=== PATIENT | male | born 1950 | race Caucasian/White ===

== ENCOUNTER 2022-04-18 14:09 | Inpatient (IN) ==
[2022-04-18 15:35] LABS: Basophils # 0.1 K/mcL (0.0-0.2); Basophils % 0.5 %; Eosinophils # 0.2 K/mcL (0.0-0.6); Eosinophils % 1.6 %; Hematocrit 40.9 % (37.5-50.1); Hemoglobin 14.1 g/dL (12.9-16.9); Immature Granulocytes % 0.2 % (0-4); Lymphocytes % 30.3 %; Mean Corpuscular HGB Conc 34.5 g/dL (31.6-35.5); Mean Corpuscular Hemoglobin 32.2 pg (28.0-33.3); Mean Corpuscular Volume 93.4 fL (83.0-100.0); Monocytes # 0.9 K/mcL (0.0-1.3); Monocytes % 8.9 %; Neutrophils # 5.7 K/mcL (1.6-8.9); Platelet Count 242 K/mcL (140-400); Red Blood Count 4.38 M/mcL (4.19-5.50); Red Cell Distribution Width 13.7 % (11.5-14.5); Segmented Neutrophils % 58.5 %; White Blood Count 9.7 K/mcL (4.3-11.1)
[2022-04-18 16:27] LABS: BUN/Creatinine Ratio 20 (6-26); Blood Urea Nitrogen 18 mg/dL (8-23); Calcium 9.7 mg/dL (8.6-10.3); Carbon Dioxide 24 mEq/L (23-29); Chloride 102 mEq/L (98-107); Glucose 176 mg/dL (70-105); Osmolality,Calculated 288 (280-300); Sodium 136 mEq/L (136-145); eGFR For African Americans > 60 (> 60); eGFR For Non-African Americans > 60 (> 60)
[2022-04-18] MEDS ORDERED: Naloxone 0.4 MG/ML INJ IVP PRN ×2 (17:45→17:59)
[2022-04-18] MEDS ORDERED: Perflutren Lipid Microsphere 1.3 ML in 0.9 % Sodium Chloride 8.7 ML IVP PRN (17:59)
[2022-04-18] MEDS ORDERED: Ondansetron 4 MG/2 ML VIAL IVP PRN (17:59)
[2022-04-18] MEDS ORDERED: Nitroglycerin 0.4 MG TAB.SUBL SL PRN (17:59)
[2022-04-18] MEDS ORDERED: D5% in Water 1,000 ML IVC PRN (18:33)
[2022-04-18] MEDS ORDERED: *HR* Dextrose 50 % in Water (Syg) 50 ML SYRINGE IVP PRN (18:33)
[2022-04-18] MEDS ORDERED: Dextrose Gel 15 GM/37.5 ML TUBE PO PRN ×2 (18:33)
[2022-04-18] MEDS ORDERED: *HR* Heparin 5,000 UNIT/ML VIAL IVP ONE (18:34)
[2022-04-18] MEDS ORDERED: *HR* Heparin 5,000 UNIT/ML VIAL IVP PRN ×2 (18:34)
[2022-04-18] MEDS ORDERED: Nitroglycerin 0.4 MG TAB.SUBL SL SCH (18:45)
[2022-04-18] MEDS ORDERED: Albuterol 2.5 MG/3 ML NEBULIZER IH PRN (19:43)
[2022-04-18] MEDS: Heparin 25,000UNIT/250ML 1/2NS 25,000 UNIT/250 ML IV.SOLN IVC SCH (19:52)
[2022-04-18] MEDS: Insulin LISPRO 300 UNITS/3 ML VIAL SUBQ SCH (19:55)
[2022-04-18] MEDS: Ipratropium/Albuterol Neb 3 ML IH SCH (20:18)
[2022-04-18 20:25] LABS: Mean Corpuscular HGB Conc 33.3 g/dL (31.6-35.5); Mean Corpuscular Hemoglobin 31.3 pg (28.0-33.3); Mean Corpuscular Volume 93.8 fL (83.0-100.0); Mean Platelet Volume 10.1 fL (9.4-12.4); Platelet Count 251 K/mcL (140-400); Red Blood Count 4.48 M/mcL (4.19-5.50); Red Cell Distribution Width 13.6 % (11.5-14.5); White Blood Count 10.1 K/mcL (4.3-11.1)
[2022-04-18 20:33] LABS: Heparin anti-factor XA UFH < 0.04 IU/mL (0.30-0.70)
[2022-04-18 20:34] LABS: Prothrombin Time 10.6 Seconds (9.4-12.1)
[2022-04-18 20:36] LABS: Estimated Average Glucose 212 mg/dl
[2022-04-18 21:16] LABS: Troponin I 0.17 ng/mL (< 0.04)
[2022-04-18] MEDS: Gabapentin 100 MG CAPSULE PO SCH (22:17)
[2022-04-18] MEDS: Furosemide 40 MG TABLET PO SCH (22:18)
[2022-04-19 01:49] LABS: Basophils # 0.1 K/mcL (0.0-0.2); Basophils % 0.5 %; Eosinophils # 0.3 K/mcL (0.0-0.6); Eosinophils % 2.6 %; Hematocrit 39.6 % (37.5-50.1); Hemoglobin 13.2 g/dL (12.9-16.9); Immature Granulocytes % 0.4 % (0-4); Lymphocytes # 3.5 K/mcL (0.6-4.6); Lymphocytes % 36.2 %; Mean Corpuscular HGB Conc 33.3 g/dL (31.6-35.5); Mean Corpuscular Hemoglobin 31.7 pg (28.0-33.3); Mean Corpuscular Volume 95.2 fL (83.0-100.0); Mean Platelet Volume 10.1 fL (9.4-12.4); Monocytes # 0.9 K/mcL (0.0-1.3); Neutrophils # 4.9 K/mcL (1.6-8.9); Platelet Count 218 K/mcL (140-400); Red Blood Count 4.16 M/mcL (4.19-5.50); Red Cell Distribution Width 13.5 % (11.5-14.5); Segmented Neutrophils % 51.3 %; White Blood Count 9.5 K/mcL (4.3-11.1)
[2022-04-19 01:56] LABS: Heparin anti-factor XA UFH 0.35 IU/mL (0.30-0.70)
[2022-04-19 01:59] LABS: Activated Partial Thrombo Time 56.9 Seconds (26.0-36.0)
[2022-04-19 02:09] LABS: Alanine Aminotransferase 27 Units/L (7-52); Albumin 3.8 g/dL (3.5-5.7); Albumin/Globulin Ratio 1.7 (1.1-2.2); Alkaline Phosphatase 49 Units/L (34-104); Aspartate Amino Transferase 20 Units/L (13-39); BUN/Creatinine Ratio 19 (6-26); Bilirubin,Total 0.6 mg/dL (0.3-1.0); Blood Urea Nitrogen 16 mg/dL (8-23); Calcium 9.2 mg/dL (8.6-10.3); Carbon Dioxide 28 mEq/L (23-29); Chloride 103 mEq/L (98-107); Chol/HDL Ratio 5.2 (0-4.9); Cholesterol 181 mg/dL (< 200); Globulin 2.3 g/dL (2.4-3.5); Glucose 153 mg/dL (70-105); HDL Cholesterol 35 mg/dL (40-59); LDL Cholesterol,Calculated 113 mg/dL (< 100); Magnesium 1.8 mg/dL (1.6-2.6); Osmolality,Calculated 290 (280-300); Potassium 3.5 mEq/L (3.5-5.1); Sodium 138 mEq/L (136-145); Total Protein 6.1 g/dL (6.4-8.9); Triglycerides 167 mg/dL (< 150); Troponin I 0.17 ng/mL (< 0.04); eGFR For African Americans > 60 (> 60); eGFR For Non-African Americans > 60 (> 60)
[2022-04-19] MEDS: Ipratropium/Albuterol Neb 3 ML IH SCH ×2 (03:44→08:03)
[2022-04-19] MEDS: Insulin LISPRO 300 UNITS/3 ML VIAL SUBQ SCH ×3 (07:33→17:10)
[2022-04-19] MEDS: Gabapentin 100 MG CAPSULE PO SCH ×3 (07:40→21:10)
[2022-04-19] MEDS: Aspirin Enteric Coated 81 MG Tablet PO SCH (07:40)
[2022-04-19] MEDS: Valsartan 160 MG TABLET PO SCH (07:40)
[2022-04-19] MEDS: carvediloL 6.25 MG TABLET PO SCH ×2 (07:40→17:09)
[2022-04-19] MEDS: Furosemide 40 MG TABLET PO SCH ×2 (07:40→17:09)
[2022-04-19] MEDS ORDERED: Ipratropium/Albuterol Neb 3 ML IH PRN (10:51)
[2022-04-19] MEDS: Heparin 25,000UNIT/250ML 1/2NS 25,000 UNIT/250 ML IV.SOLN IVC SCH (12:28)
[2022-04-19] MEDS ORDERED: Bisacodyl 10 MG RECTAL SUPPOSITORY RC PRN (13:28)
[2022-04-19] MEDS ORDERED: Morphine Sulfate Oral CONC 10 MG/0.5 ML ORAL.SYG PO PRN (13:28)
[2022-04-19] MEDS: Gabapentin 400 MG CAPSULE PO SCH ×2 (14:34→21:10)
[2022-04-20] MEDS: Heparin 25,000UNIT/250ML 1/2NS 25,000 UNIT/250 ML IV.SOLN IVC SCH (03:35)
[2022-04-20 04:37] LABS: Basophils # 0.1 K/mcL (0.0-0.2); Basophils % 0.6 %; Eosinophils # 0.2 K/mcL (0.0-0.6); Eosinophils % 2.4 %; Hematocrit 38.6 % (37.5-50.1); Hemoglobin 13.2 g/dL (12.9-16.9); Immature Granulocytes % 0.4 % (0-4); Lymphocytes # 3.1 K/mcL (0.6-4.6); Lymphocytes % 37.6 %; Mean Corpuscular HGB Conc 34.2 g/dL (31.6-35.5); Mean Corpuscular Hemoglobin 31.9 pg (28.0-33.3); Mean Corpuscular Volume 93.2 fL (83.0-100.0); Mean Platelet Volume 10.2 fL (9.4-12.4); Monocytes # 0.9 K/mcL (0.0-1.3); Monocytes % 10.5 %; Platelet Count 224 K/mcL (140-400); Red Blood Count 4.14 M/mcL (4.19-5.50); Red Cell Distribution Width 13.5 % (11.5-14.5); Segmented Neutrophils % 48.5 %; White Blood Count 8.3 K/mcL (4.3-11.1)
[2022-04-20 04:49] LABS: BUN/Creatinine Ratio 23 (6-26); Blood Urea Nitrogen 20 mg/dL (8-23); Calcium 9.3 mg/dL (8.6-10.3); Carbon Dioxide 26 mEq/L (23-29); Chloride 101 mEq/L (98-107); Glucose 211 mg/dL (70-105); Magnesium 1.8 mg/dL (1.6-2.6); Osmolality,Calculated 291 (280-300); Phosphorous 3.7 mg/dL (2.7-4.5); Potassium 3.8 mEq/L (3.5-5.1); Sodium 136 mEq/L (136-145); eGFR For African Americans > 60 (> 60); eGFR For Non-African Americans > 60 (> 60)
[2022-04-20] MEDS: Valsartan 160 MG TABLET PO SCH (10:22)
[2022-04-20] MEDS: Gabapentin 400 MG CAPSULE PO SCH ×3 (10:22→19:52)
[2022-04-20] MEDS: Gabapentin 100 MG CAPSULE PO SCH ×3 (10:22→19:52)
[2022-04-20] MEDS: Aspirin Enteric Coated 81 MG Tablet PO SCH (10:23)
[2022-04-20] MEDS: Insulin LISPRO 300 UNITS/3 ML VIAL SUBQ SCH ×3 (10:24→16:59)
[2022-04-20] MEDS: Isosorbide MONOnitrate (24 HR) 30 MG TAB.ER.24H PO SCH (10:24)
[2022-04-20] MEDS: Furosemide 40 MG TABLET PO SCH ×2 (10:28→17:02)
[2022-04-20] MEDS: carvediloL 6.25 MG TABLET PO SCH ×2 (10:28→17:02)
[2022-04-20] MEDS: Insulin DETEMIR 100 UNIT/ML X5UNITS SUBQ SCH (20:37)
[2022-04-21 04:04] LABS: BUN/Creatinine Ratio 21 (6-26); Blood Urea Nitrogen 25 mg/dL (8-23); Calcium 9.1 mg/dL (8.6-10.3); Carbon Dioxide 25 mEq/L (23-29); Chloride 101 mEq/L (98-107); Glucose 233 mg/dL (70-105); Magnesium 1.9 mg/dL (1.6-2.6); Osmolality,Calculated 290 (280-300); Phosphorous 4.3 mg/dL (2.7-4.5); Sodium 134 mEq/L (136-145); eGFR For African Americans > 60 (> 60); eGFR For Non-African Americans 59 (> 60)
[2022-04-21] MEDS: Furosemide 40 MG TABLET PO SCH ×2 (09:08→17:59)
[2022-04-21] MEDS: Gabapentin 400 MG CAPSULE PO SCH ×3 (09:08→21:19)
[2022-04-21] MEDS: Isosorbide MONOnitrate (24 HR) 30 MG TAB.ER.24H PO SCH (09:08)
[2022-04-21] MEDS: Valsartan 160 MG TABLET PO SCH (09:08)
[2022-04-21] MEDS: Gabapentin 100 MG CAPSULE PO SCH ×3 (09:08→21:19)
[2022-04-21] MEDS: Aspirin Enteric Coated 81 MG Tablet PO SCH (09:09)
[2022-04-21] MEDS: carvediloL 6.25 MG TABLET PO SCH ×2 (09:09→17:59)
[2022-04-21] MEDS: Insulin DETEMIR 100 UNIT/ML X5UNITS SUBQ SCH ×2 (09:15→21:20)
[2022-04-21] MEDS: Insulin LISPRO 300 UNITS/3 ML VIAL SUBQ SCH ×3 (09:17→18:02)
[2022-04-21] MEDS: Heparin 25,000UNIT/250ML 1/2NS 25,000 UNIT/250 ML IV.SOLN IVC SCH (12:13)
[2022-04-21] MEDS: haloperidoL 1 MG TABLET PO PRN (22:24)
[2022-04-21] MEDS: *HR* LORazepam 0.5 MG TABLET PO PRN (22:24)
[2022-04-22] MEDS: Heparin 25,000UNIT/250ML 1/2NS 25,000 UNIT/250 ML IV.SOLN IVC SCH ×2 (01:51→20:56)
[2022-04-22 05:30] LABS: Basophils # 0.1 K/mcL (0.0-0.2); Basophils % 0.6 %; Eosinophils # 0.2 K/mcL (0.0-0.6); Eosinophils % 2.2 %; Hematocrit 37.3 % (37.5-50.1); Hemoglobin 12.5 g/dL (12.9-16.9); Immature Granulocytes % 0.6 % (0-4); Lymphocytes # 2.7 K/mcL (0.6-4.6); Lymphocytes % 29.8 %; Mean Corpuscular HGB Conc 33.5 g/dL (31.6-35.5); Mean Corpuscular Hemoglobin 31.3 pg (28.0-33.3); Mean Corpuscular Volume 93.3 fL (83.0-100.0); Mean Platelet Volume 10.3 fL (9.4-12.4); Monocytes # 0.9 K/mcL (0.0-1.3); Monocytes % 10.6 %; Platelet Count 213 K/mcL (140-400); Red Cell Distribution Width 13.6 % (11.5-14.5); Segmented Neutrophils % 56.2 %; White Blood Count 8.9 K/mcL (4.3-11.1)
[2022-04-22 05:51] LABS: BUN/Creatinine Ratio 22 (6-26); Blood Urea Nitrogen 23 mg/dL (8-23); Calcium 9.3 mg/dL (8.6-10.3); Carbon Dioxide 25 mEq/L (23-29); Chloride 103 mEq/L (98-107); Glucose 246 mg/dL (70-105); Osmolality,Calculated 294 (280-300); Phosphorous 3.8 mg/dL (2.7-4.5); Potassium 3.9 mEq/L (3.5-5.1); Sodium 136 mEq/L (136-145); eGFR For African Americans > 60 (> 60); eGFR For Non-African Americans > 60 (> 60)
[2022-04-22] MEDS: Insulin LISPRO 300 UNITS/3 ML VIAL SUBQ SCH ×3 (07:30→16:39)
[2022-04-22] MEDS: carvediloL 6.25 MG TABLET PO SCH ×2 (08:08→16:40)
[2022-04-22] MEDS: Isosorbide MONOnitrate (24 HR) 30 MG TAB.ER.24H PO SCH (08:08)
[2022-04-22] MEDS: Valsartan 160 MG TABLET PO SCH (08:08)
[2022-04-22] MEDS: Aspirin Enteric Coated 81 MG Tablet PO SCH (08:08)
[2022-04-22] MEDS: Insulin DETEMIR 100 UNIT/ML X5UNITS SUBQ SCH ×2 (08:08→21:01)
[2022-04-22] MEDS: Furosemide 40 MG TABLET PO SCH ×2 (08:08→16:40)
[2022-04-22] MEDS: Gabapentin 400 MG CAPSULE PO SCH ×3 (09:00→21:01)
[2022-04-22] MEDS: Gabapentin 100 MG CAPSULE PO SCH ×3 (09:37→21:01)
[2022-04-22] MEDS ORDERED: Mannitol 25% vial 12.5 GM/50 ML VIAL IVPB ONE (12:37)
[2022-04-22] MEDS ORDERED: *HR* Heparin 10,000 UNIT/10 ML VIAL IR ONE (12:37)
[2022-04-22] MEDS ORDERED: *HR* Magnesium Sulfate 2 GM/50 ML PIGGYBACK IVPB ONE (12:37)
[2022-04-22] MEDS ORDERED: Heparin 1,000 UNITS/500 mL IV.SOLN IR ONE (12:37)
[2022-04-22] MEDS ORDERED: *HR* Phenylephrine 10 MG/ML VIAL IVC ONE (12:37)
[2022-04-22] MEDS ORDERED: Lidocaine 2% Syringe 100 MG/5 ML IVP ONE (12:37)
[2022-04-22] MEDS ORDERED: Tranexamic Acid 1,000 MG/10 ML VIAL IR ONE (12:37)
[2022-04-22] MEDS ORDERED: *HR* Midazolam HCl 2 MG/2 ML VIAL ONE (16:46)
[2022-04-22] MEDS ORDERED: *HR* FentaNYL (PF) 100 MCG/2 ML VIAL ONE ×2 (16:46→18:38)
[2022-04-22] MEDS ORDERED: Heparin 1,000 UNITS/500 mL 500 ML ONE ×2 (16:47→16:55)
[2022-04-22] MEDS ORDERED: *HR* Heparin 10,000 UNIT/10 ML VIAL ONE (16:47)
[2022-04-22] MEDS ORDERED: Iopamidol - 370 200 ML INFUS..BTL ONE (16:47)
[2022-04-22] MEDS ORDERED: Nitroglycerin 1,000 MCG/5 ML VIAL IV ONE (16:48)
[2022-04-22] MEDS ORDERED: 0.9 % Sodium Chloride 2,000 ML ONE (16:48)
[2022-04-22] MEDS: haloperidoL 1 MG TABLET PO PRN (21:01)
[2022-04-22] MEDS: *HR* LORazepam 0.5 MG TABLET PO PRN (21:01)
[2022-04-23 05:00] LABS: Basophils % 0.4 %; Eosinophils # 0.2 K/mcL (0.0-0.6); Eosinophils % 2.1 %; Hematocrit 39.2 % (37.5-50.1); Hemoglobin 13.1 g/dL (12.9-16.9); Immature Granulocytes % 0.5 % (0-4); Lymphocytes # 2.9 K/mcL (0.6-4.6); Lymphocytes % 30.6 %; Mean Corpuscular HGB Conc 33.4 g/dL (31.6-35.5); Mean Corpuscular Hemoglobin 31.8 pg (28.0-33.3); Mean Corpuscular Volume 95.1 fL (83.0-100.0); Mean Platelet Volume 10.3 fL (9.4-12.4); Monocytes # 0.9 K/mcL (0.0-1.3); Monocytes % 9.4 %; Neutrophils # 5.5 K/mcL (1.6-8.9); Platelet Count 190 K/mcL (140-400); Red Blood Count 4.12 M/mcL (4.19-5.50); Red Cell Distribution Width 13.9 % (11.5-14.5); White Blood Count 9.6 K/mcL (4.3-11.1)
[2022-04-23 05:20] LABS: BUN/Creatinine Ratio 17 (6-26); Blood Urea Nitrogen 16 mg/dL (8-23); Calcium 9.2 mg/dL (8.6-10.3); Carbon Dioxide 26 mEq/L (23-29); Chloride 103 mEq/L (98-107); Glucose 230 mg/dL (70-105); Osmolality,Calculated 290 (280-300); Potassium 3.9 mEq/L (3.5-5.1); Sodium 136 mEq/L (136-145); eGFR For African Americans > 60 (> 60); eGFR For Non-African Americans > 60 (> 60)
[2022-04-23] MEDS ORDERED: Iopamidol - 370 500 ML MLS IVP ONE (08:00)
[2022-04-23] MEDS: Insulin LISPRO 300 UNITS/3 ML VIAL SUBQ SCH ×4 (11:05→16:54)
[2022-04-23] MEDS: Aspirin Enteric Coated 81 MG Tablet PO SCH (11:13)
[2022-04-23] MEDS: Gabapentin 400 MG CAPSULE PO SCH ×3 (11:13→20:33)
[2022-04-23] MEDS: Gabapentin 100 MG CAPSULE PO SCH ×3 (11:14→20:33)
[2022-04-23] MEDS: Insulin DETEMIR 100 UNIT/ML X5UNITS SUBQ SCH ×2 (11:22→20:37)
[2022-04-23] MEDS: Heparin 25,000UNIT/250ML 1/2NS 25,000 UNIT/250 ML IV.SOLN IVC SCH ×3 (11:52→13:37)
[2022-04-23] MEDS: Furosemide 40 MG TABLET PO SCH ×2 (11:53→16:55)
[2022-04-23] MEDS: carvediloL 6.25 MG TABLET PO SCH ×2 (11:53→16:55)
[2022-04-23] MEDS: Isosorbide MONOnitrate (24 HR) 30 MG TAB.ER.24H PO SCH (11:54)
[2022-04-23] MEDS: Valsartan 160 MG TABLET PO SCH (11:54)
[2022-04-23] MEDS: *HR* LORazepam 0.5 MG TABLET PO PRN (20:33)
[2022-04-23] MEDS: haloperidoL 1 MG TABLET PO PRN (20:34)
[2022-04-24] MEDS: Heparin 25,000UNIT/250ML 1/2NS 25,000 UNIT/250 ML IV.SOLN IVC SCH ×2 (03:41→16:07)
[2022-04-24] MEDS: Gabapentin 100 MG CAPSULE PO SCH ×3 (08:27→20:53)
[2022-04-24] MEDS: Isosorbide MONOnitrate (24 HR) 30 MG TAB.ER.24H PO SCH (08:27)
[2022-04-24] MEDS: Valsartan 160 MG TABLET PO SCH (08:27)
[2022-04-24] MEDS: carvediloL 6.25 MG TABLET PO SCH ×2 (08:27→17:01)
[2022-04-24] MEDS: Aspirin Enteric Coated 81 MG Tablet PO SCH (08:28)
[2022-04-24] MEDS: Gabapentin 400 MG CAPSULE PO SCH ×3 (08:28→20:52)
[2022-04-24] MEDS: Furosemide 40 MG TABLET PO SCH ×2 (08:28→17:01)
[2022-04-24] MEDS: Insulin LISPRO 300 UNITS/3 ML VIAL SUBQ SCH ×6 (08:30→17:06)
[2022-04-24] MEDS: Insulin DETEMIR 100 UNIT/ML X5UNITS SUBQ SCH ×2 (08:30→21:48)
[2022-04-24 16:18] LABS: Basophils # 0.1 K/mcL (0.0-0.2); Basophils % 0.6 %; Eosinophils # 0.2 K/mcL (0.0-0.6); Eosinophils % 1.7 %; Hematocrit 37.3 % (37.5-50.1); Hemoglobin 12.6 g/dL (12.9-16.9); Immature Granulocytes % 0.6 % (0-4); Lymphocytes # 3.1 K/mcL (0.6-4.6); Lymphocytes % 30.7 %; Mean Corpuscular HGB Conc 33.8 g/dL (31.6-35.5); Mean Corpuscular Hemoglobin 31.6 pg (28.0-33.3); Mean Corpuscular Volume 93.5 fL (83.0-100.0); Mean Platelet Volume 10.4 fL (9.4-12.4); Monocytes # 1.2 K/mcL (0.0-1.3); Monocytes % 11.2 %; Neutrophils # 5.7 K/mcL (1.6-8.9); Platelet Count 215 K/mcL (140-400); Red Blood Count 3.99 M/mcL (4.19-5.50); Segmented Neutrophils % 55.2 %; White Blood Count 10.2 K/mcL (4.3-11.1)
[2022-04-24 16:27] LABS: INR 1.1
[2022-04-24 16:30] LABS: Activated Partial Thrombo Time 85.3 Seconds (26.0-36.0)
[2022-04-24 16:38] LABS: BUN/Creatinine Ratio 14 (6-26); Blood Urea Nitrogen 14 mg/dL (8-23); Calcium 9.4 mg/dL (8.6-10.3); Carbon Dioxide 26 mEq/L (23-29); Chloride 104 mEq/L (98-107); Chol/HDL Ratio 3.8 (0-4.9); Cholesterol 123 mg/dL (< 200); Glucose 193 mg/dL (70-105); HDL Cholesterol 32 mg/dL (40-59); LDL Cholesterol,Calculated 59 mg/dL (< 100); Osmolality,Calculated 290 (280-300); Sodium 137 mEq/L (136-145); Triglycerides 158 mg/dL (< 150); eGFR For African Americans > 60 (> 60); eGFR For Non-African Americans > 60 (> 60)
[2022-04-24] MEDS: Chlorhexidine Rinse 15 ML MOUTHWASH MM SCH (20:52)
[2022-04-25] MEDS: Heparin 25,000UNIT/250ML 1/2NS 25,000 UNIT/250 ML IV.SOLN IVC SCH ×2 (05:20→22:15)
[2022-04-25] MEDS: Chlorhexidine Rinse 15 ML MOUTHWASH MM SCH ×2 (05:20→22:08)
[2022-04-25] MEDS ORDERED: Papaverine 60 MG/2 ML VIAL IVP ONE (05:42)
[2022-04-25] MEDS ORDERED: Clindamycin 900 MG/50 ML 900 MG/50 ML IV.SOLN IVPB ONE (06:00)
[2022-04-25] MEDS ORDERED: Aspirin 81 MG TAB.CHEW PO ONE (06:00)
[2022-04-25] MEDS ORDERED: NiCARdipine 2.5 MG/10 ML Syringe IVPB ONE (06:01)
[2022-04-25] MEDS ORDERED: DOBUTamine 1,000 MG/250 ML BAG ONE (06:01)
[2022-04-25] MEDS ORDERED: *HR* Midazolam HCl 5 MG/5 ML VIAL IVP ONE (06:10)
[2022-04-25] MEDS ORDERED: *HR* FentaNYL (PF) 1,000 MCG/20 ML VIAL ONE (06:11)
[2022-04-25] MEDS ORDERED: niCARdipine 20 MG/200 ML MLS IVC ONE (06:17)
[2022-04-25] MEDS ORDERED: *HR* Norepinephrine 4 MG/4 ML VIAL IVC ONE (06:17)
[2022-04-25] MEDS ORDERED: *HR* Rocuronium Bromide 50 MG/5 ML VIAL ONE (06:17)
[2022-04-25] MEDS ORDERED: *HR* Etomidate 20 MG/10 ML AMPUL IVP ONE (06:25)
[2022-04-25] MEDS ORDERED: Tranexamic Acid 1,000 MG/10 ML VIAL ONE (06:25)
[2022-04-25] MEDS ORDERED: Calcium Gluconate 1,000 MG/10 ML VIAL ONE (06:26)
[2022-04-25] MEDS ORDERED: Protamine Sulfate 250 MG/25 ML VIAL IVP ONE (06:26)
[2022-04-25] MEDS ORDERED: Norepinephrine 4 MG in 0.9 % Sodium Chloride 250 ML IVC PRN (07:00)
[2022-04-25] MEDS ORDERED: del Nido Cardioplegia Solution PF ONE ×2 (07:00)
[2022-04-25] MEDS ORDERED: Buckersberg's Blood Cardioplegia PF ONE (07:00)
[2022-04-25] MEDS ORDERED: Heparin 15,000 UNIT in 0.9 % Sodium Chloride 500 ML IV ONE (07:00)
[2022-04-25] MEDS: Insulin LISPRO 300 UNITS/3 ML VIAL SUBQ SCH ×6 (09:03→16:56)
[2022-04-25] MEDS: Insulin DETEMIR 100 UNIT/ML X5UNITS SUBQ SCH ×2 (09:05→22:12)
[2022-04-25] MEDS: Valsartan 160 MG TABLET PO SCH (09:06)
[2022-04-25] MEDS: Gabapentin 100 MG CAPSULE PO SCH ×3 (09:07→22:09)
[2022-04-25] MEDS: Aspirin Enteric Coated 81 MG Tablet PO SCH (09:07)
[2022-04-25] MEDS: Furosemide 40 MG TABLET PO SCH ×2 (09:07→16:54)
[2022-04-25] MEDS: Isosorbide MONOnitrate (24 HR) 30 MG TAB.ER.24H PO SCH (09:07)
[2022-04-25] MEDS: Gabapentin 400 MG CAPSULE PO SCH ×3 (09:07→22:09)
[2022-04-25 16:35] LABS: Basophils % 0.4 %; Eosinophils # 0.3 K/mcL (0.0-0.6); Eosinophils % 2.8 %; Hematocrit 38.8 % (37.5-50.1); Hemoglobin 13.2 g/dL (12.9-16.9); Immature Granulocytes % 0.7 % (0-4); Lymphocytes # 2.9 K/mcL (0.6-4.6); Lymphocytes % 28.4 %; Mean Corpuscular Volume 93.9 fL (83.0-100.0); Mean Platelet Volume 10.4 fL (9.4-12.4); Monocytes # 0.9 K/mcL (0.0-1.3); Monocytes % 9.3 %; Neutrophils # 5.9 K/mcL (1.6-8.9); Nucleated Red Blood Cells 0.2 /100 WBC (0); Platelet Count 218 K/mcL (140-400); Red Blood Count 4.13 M/mcL (4.19-5.50); Red Cell Distribution Width 14.1 % (11.5-14.5); Segmented Neutrophils % 58.4 %; White Blood Count 10.1 K/mcL (4.3-11.1)
[2022-04-25 16:44] LABS: INR 1.1; Prothrombin Time 11.8 Seconds (9.4-12.1)
[2022-04-25 16:52] LABS: Activated Partial Thrombo Time 75.5 Seconds (26.0-36.0)
[2022-04-25 16:53] LABS: BUN/Creatinine Ratio 17 (6-26); Blood Urea Nitrogen 16 mg/dL (8-23); Calcium 9.7 mg/dL (8.6-10.3); Carbon Dioxide 26 mEq/L (23-29); Chloride 103 mEq/L (98-107); Glucose 162 mg/dL (70-105); Osmolality,Calculated 289 (280-300); Sodium 137 mEq/L (136-145); eGFR For African Americans > 60 (> 60); eGFR For Non-African Americans > 60 (> 60)
[2022-04-25] MEDS: carvediloL 6.25 MG TABLET PO SCH (17:20)
[2022-04-25] MEDS: haloperidoL 1 MG TABLET PO PRN (22:08)
[2022-04-26] MEDS ORDERED: NiCARdipine 2.5 MG/10 ML Syringe IVPB ONE ×2 (05:46→13:49)
[2022-04-26] MEDS ORDERED: DOBUTamine 1,000 MG/250 ML BAG ONE (05:46)
[2022-04-26] MEDS: Chlorhexidine Rinse 15 ML MOUTHWASH MM SCH ×2 (05:47→20:03)
[2022-04-26] MEDS ORDERED: *HR* Midazolam HCl 5 MG/5 ML VIAL IVP ONE ×2 (05:52→14:23)
[2022-04-26] MEDS ORDERED: *HR* FentaNYL (PF) 1,000 MCG/20 ML VIAL ONE (05:53)
[2022-04-26] MEDS ORDERED: *HR* Rocuronium Bromide 50 MG/5 ML VIAL ONE ×3 (05:55→12:44)
[2022-04-26] MEDS ORDERED: *HR* Norepinephrine 4 MG/4 ML VIAL IVC ONE (05:55)
[2022-04-26] MEDS ORDERED: niCARdipine 20 MG/200 ML MLS IVC ONE ×2 (05:55→13:48)
[2022-04-26] MEDS ORDERED: *HR* Etomidate 20 MG/10 ML AMPUL IVP ONE (05:56)
[2022-04-26] MEDS ORDERED: Tranexamic Acid 1,000 MG/10 ML VIAL ONE (05:56)
[2022-04-26] MEDS ORDERED: Calcium Gluconate 1,000 MG/10 ML VIAL ONE (05:56)
[2022-04-26] MEDS ORDERED: Protamine Sulfate 250 MG/25 ML VIAL IVP ONE (05:59)
[2022-04-26] MEDS ORDERED: Clindamycin 900 MG/50 ML 900 MG/50 ML IV.SOLN IVPB ONE (06:00)
[2022-04-26] MEDS ORDERED: Aspirin 81 MG TAB.CHEW PO ONE ×2 (06:00→17:00)
[2022-04-26] MEDS ORDERED: Papaverine 60 MG/2 ML VIAL IVP ONE (06:00)
[2022-04-26] MEDS ORDERED: Norepinephrine 4 MG in 0.9 % Sodium Chloride 250 ML IVC PRN (07:00)
[2022-04-26] MEDS ORDERED: del Nido Cardioplegia Solution PF ONE ×2 (07:00)
[2022-04-26] MEDS ORDERED: Heparin 15,000 UNIT in 0.9 % Sodium Chloride 500 ML IV ONE (07:00)
[2022-04-26] MEDS ORDERED: Buckersberg's Blood Cardioplegia PF ONE (07:00)
[2022-04-26 08:15] LABS: ABG Base Excess -2 mEq/L (-2 to 3); ABG Chloride 103 mEq/L (98-107); ABG Glucose 259 mg/dL (60-95); ABG HCO3 25 mEq/L (21-27); ABG Ionized Calcium 1.21 mmol/L (1.15-1.35); ABG Oxygen Saturation 100 % (95-98); ABG PCO2 47 mmHg (35-45); ABG PH 7.33 pH Units (7.32-7.45); ABG PO2 229 mmHg (85-104); ABG TCO2 26 mEq/L (20-26)
[2022-04-26] MEDS ORDERED: Calcium Gluconate 1gm/50mL 1 GM/50 ML BAG IVPB PRN (09:39)
[2022-04-26] MEDS ORDERED: Potassium Chloride 40 MEQ/200 ML BAG IVPB PRN (09:39)
[2022-04-26] MEDS ORDERED: *HR* Dextrose 50 % in Water (Syg) 50 ML SYRINGE IVP PRN (09:39)
[2022-04-26] MEDS ORDERED: Acetaminophen 325 MG TABLET PO PRN (09:39)
[2022-04-26 10:52] LABS: ABG Base Excess -3 mEq/L (-2 to 3); ABG Chloride 102 mEq/L (98-107); ABG Glucose 310 mg/dL (60-95); ABG HCO3 23 mEq/L (21-27); ABG Ionized Calcium 1.25 mmol/L (1.15-1.35); ABG Oxygen Saturation 99 % (95-98); ABG PCO2 46 mmHg (35-45); ABG PH 7.31 pH Units (7.32-7.45); ABG PO2 154 mmHg (85-104); ABG TCO2 25 mEq/L (20-26)
[2022-04-26 11:56] LABS: ABG Base Excess -2 mEq/L (-2 to 3); ABG Chloride 100 mEq/L (98-107); ABG Glucose 225 mg/dL (60-95); ABG HCO3 24 mEq/L (21-27); ABG Ionized Calcium 1.03 mmol/L (1.15-1.35); ABG Oxygen Saturation 100 % (95-98); ABG PCO2 43 mmHg (35-45); ABG PH 7.36 pH Units (7.32-7.45); ABG PO2 524 mmHg (85-104); ABG TCO2 25 mEq/L (20-26)
[2022-04-26 12:24] LABS: ABG Base Excess -1 mEq/L (-2 to 3); ABG Chloride 101 mEq/L (98-107); ABG Glucose 238 mg/dL (60-95); ABG HCO3 25 mEq/L (21-27); ABG Ionized Calcium 1.11 mmol/L (1.15-1.35); ABG Oxygen Saturation 100 % (95-98); ABG PCO2 42 mmHg (35-45); ABG PH 7.38 pH Units (7.32-7.45); ABG PO2 532 mmHg (85-104); ABG TCO2 26 mEq/L (20-26)
[2022-04-26] MEDS: Insulin LISPRO 300 UNITS/3 ML VIAL SUBQ SCH ×6 (12:53→16:48)
[2022-04-26] MEDS: carvediloL 6.25 MG TABLET PO SCH ×2 (12:53→16:40)
[2022-04-26] MEDS: Aspirin Enteric Coated 81 MG Tablet PO SCH (12:54)
[2022-04-26] MEDS: Gabapentin 100 MG CAPSULE PO SCH ×3 (12:54→19:11)
[2022-04-26] MEDS: Gabapentin 400 MG CAPSULE PO SCH ×3 (12:54→19:11)
[2022-04-26] MEDS: Valsartan 160 MG TABLET PO SCH (12:54)
[2022-04-26] MEDS: Isosorbide MONOnitrate (24 HR) 30 MG TAB.ER.24H PO SCH (12:54)
[2022-04-26] MEDS: Furosemide 40 MG TABLET PO SCH ×2 (12:54→16:40)
[2022-04-26] MEDS: Insulin DETEMIR 100 UNIT/ML X5UNITS SUBQ SCH ×2 (12:54→19:11)
[2022-04-26 12:55] LABS: ABG Base Excess 0 mEq/L (-2 to 3); ABG Chloride 101 mEq/L (98-107); ABG Glucose 252 mg/dL (60-95); ABG HCO3 25 mEq/L (21-27); ABG Ionized Calcium 1.14 mmol/L (1.15-1.35); ABG Oxygen Saturation 100 % (95-98); ABG PCO2 42 mmHg (35-45); ABG PH 7.38 pH Units (7.32-7.45); ABG PO2 531 mmHg (85-104); ABG TCO2 26 mEq/L (20-26)
[2022-04-26 13:26] LABS: ABG Base Excess -1 mEq/L (-2 to 3); ABG Chloride 102 mEq/L (98-107); ABG Glucose 272 mg/dL (60-95); ABG HCO3 24 mEq/L (21-27); ABG Ionized Calcium 1.72 mmol/L (1.15-1.35); ABG Oxygen Saturation 100 % (95-98); ABG PCO2 41 mmHg (35-45); ABG PH 7.38 pH Units (7.32-7.45); ABG PO2 450 mmHg (85-104); ABG TCO2 26 mEq/L (20-26)
[2022-04-26] MEDS ORDERED: *HR* Phenylephrine 10 MG/ML VIAL IVC ONE (13:53)
[2022-04-26] MEDS ORDERED: Lidocaine 2% Syringe 100 MG/5 ML IVP ONE (13:53)
[2022-04-26] MEDS ORDERED: *HR* Heparin 10,000 UNIT/10 ML VIAL IR ONE (13:53)
[2022-04-26] MEDS ORDERED: Mannitol 25% vial 12.5 GM/50 ML VIAL IVPB ONE (13:53)
[2022-04-26] MEDS ORDERED: *HR* Magnesium Sulfate 2 GM/50 ML PIGGYBACK IVPB ONE (13:53)
[2022-04-26] MEDS ORDERED: Heparin 1,000 UNITS/500 mL IV.SOLN IR ONE (13:53)
[2022-04-26] MEDS ORDERED: Albumin Human 25% 25 GM/100 ML IV.SOLN IVPB ONE (13:53)
[2022-04-26] MEDS ORDERED: Tranexamic Acid 1,000 MG/10 ML VIAL IR ONE (13:53)
[2022-04-26] MEDS ORDERED: Clindamycin 600 MG/50 ML 600 MG/50 ML IV.SOLN IVPB ONE (13:53)
[2022-04-26] MEDS ORDERED: Protamine Sulfate 50 MG/5 ML VIAL IVP ONE (13:59)
[2022-04-26 14:12] LABS: ABG Base Excess -4 mEq/L (-2 to 3); ABG Chloride 103 mEq/L (98-107); ABG Glucose 309 mg/dL (60-95); ABG HCO3 22 mEq/L (21-27); ABG Ionized Calcium 1.53 mmol/L (1.15-1.35); ABG Oxygen Saturation 96 % (95-98); ABG PCO2 43 mmHg (35-45); ABG PH 7.33 pH Units (7.32-7.45); ABG PO2 87 mmHg (85-104); ABG TCO2 24 mEq/L (20-26)
[2022-04-26] MEDS ORDERED: Pantoprazole 40 MG VIAL IVP SCH (15:00)
[2022-04-26] MEDS: Albumin Human 5% 12.5 GM/250 ML IV.SOLN IVPB PRN ×5 (15:20→19:24)
[2022-04-26] MEDS: Insulin Regular, Human 100 UNIT/ML IV PRN ×3 (15:30→17:52)
[2022-04-26 15:45] LABS: ABG Base Excess -3 mEq/L (-2 to 3); ABG HCO3 24 mEq/L (21-27); ABG Oxygen Saturation 93 % (95-98); ABG PCO2 46 mmHg (35-45); ABG PH 7.32 pH Units (7.32-7.45); ABG PO2 72 mmHg (85-104); ABG TCO2 25 mEq/L (20-26); Blood Gas Modality ASSIST CONTROL; Blood Gas VT 500 cc
[2022-04-26 16:12] LABS: Basophils % 0.3 %; Eosinophils # 0.1 K/mcL (0.0-0.6); Eosinophils % 0.5 %; Hematocrit 33.1 % (37.5-50.1); Immature Granulocytes % 0.5 % (0-4); Lymphocytes # 1.7 K/mcL (0.6-4.6); Lymphocytes % 11.7 %; Mean Corpuscular HGB Conc 33.8 g/dL (31.6-35.5); Mean Corpuscular Hemoglobin 32.3 pg (28.0-33.3); Mean Corpuscular Volume 95.4 fL (83.0-100.0); Mean Platelet Volume 10.7 fL (9.4-12.4); Monocytes # 1.1 K/mcL (0.0-1.3); Monocytes % 7.7 %; Platelet Count 159 K/mcL (140-400); Red Blood Count 3.47 M/mcL (4.19-5.50); Red Cell Distribution Width 14.3 % (11.5-14.5); Segmented Neutrophils % 79.3 %
[2022-04-26 16:19] LABS: INR 1.2
[2022-04-26 16:21] LABS: Hemoglobin 11.2 g/dL (12.9-16.9)
[2022-04-26 16:23] LABS: Activated Partial Thrombo Time 27.8 Seconds (26.0-36.0); BUN/Creatinine Ratio 22 (6-26); Blood Urea Nitrogen 16 mg/dL (8-23); Calcium 7.9 mg/dL (8.6-10.3); Carbon Dioxide 23 mEq/L (23-29); Chloride 110 mEq/L (98-107); Glucose 246 mg/dL (70-105); Magnesium 2.3 mg/dL (1.6-2.6); Osmolality,Calculated 301 (280-300); Potassium 3.9 mEq/L (3.5-5.1); Sodium 141 mEq/L (136-145); eGFR For African Americans > 60 (> 60); eGFR For Non-African Americans > 60 (> 60)
[2022-04-26 16:25] LABS: Neutrophils # 11.7 K/mcL (1.6-8.9); Prothrombin Time 13.4 Seconds (9.4-12.1); White Blood Count 14.7 K/mcL (4.3-11.1)
[2022-04-26] MEDS: Norepinephrine 4 MG/254 ML IV.SOLN IVC SCH ×3 (16:36→18:21)
[2022-04-26] MEDS: DOBUTamine 1,000 MG/250 ML BAG IVC SCH (16:36)
[2022-04-26] MEDS: Nitroprusside 50 MG in D5% in Water 250 ML IVC SCH (16:37)
[2022-04-26] MEDS: Heparin 25,000UNIT/250ML 1/2NS 25,000 UNIT/250 ML IV.SOLN IVC SCH ×2 (16:37→19:12)
[2022-04-26] MEDS: Clindamycin 900 MG/50 ML 900 MG/50 ML IV.SOLN IVPB SCH ×2 (17:12→23:01)
[2022-04-26] MEDS: Pantoprazole 40 MG VIAL IVP SCH (17:13)
[2022-04-26 17:29] LABS: ABG Base Excess -2 mEq/L (-2 to 3); ABG HCO3 23 mEq/L (21-27); ABG Oxygen Saturation 97 % (95-98); ABG PCO2 37 mmHg (35-45); ABG PO2 88 mmHg (85-104); ABG TCO2 24 mEq/L (20-26); Blood Gas Modality ASSIST CONTROL; Blood Gas VT 500 cc
[2022-04-26] MEDS: *HR* FentaNYL (PF) 100 MCG/2 ML VIAL IVP PRN ×2 (18:12→21:07)
[2022-04-26 20:19] LABS: ABG Base Excess -1 mEq/L (-2 to 3); ABG HCO3 23 mEq/L (21-27); ABG Oxygen Saturation 96 % (95-98); ABG PCO2 36 mmHg (35-45); ABG PH 7.42 pH Units (7.32-7.45); ABG PO2 77 mmHg (85-104); ABG TCO2 24 mEq/L (20-26); Blood Gas VT 500 cc
[2022-04-26 20:55] LABS: ABG Base Excess -1 mEq/L (-2 to 3); ABG HCO3 23 mEq/L (21-27); ABG Oxygen Saturation 96 % (95-98); ABG PCO2 35 mmHg (35-45); ABG PH 7.42 pH Units (7.32-7.45); ABG PO2 82 mmHg (85-104); ABG TCO2 24 mEq/L (20-26); Blood Gas Modality CPAP/PS; Blood Gas Pressure Support 8 cm H2O
[2022-04-26] MEDS: *HR* OxyCODONE/APAP 5/325 TABLET PO PRN (22:17)
[2022-04-27] MEDS: *HR* OxyCODONE/APAP 5/325 TABLET PO PRN ×2 (03:21→07:39)
[2022-04-27 03:37] LABS: Basophils % 0.1 %; Hemoglobin 10.5 g/dL (12.9-16.9); Immature Granulocytes % 0.5 % (0-4); Lymphocytes # 1.4 K/mcL (0.6-4.6); Lymphocytes % 9.7 %; Mean Corpuscular HGB Conc 33.9 g/dL (31.6-35.5); Mean Corpuscular Hemoglobin 32.2 pg (28.0-33.3); Mean Corpuscular Volume 95.1 fL (83.0-100.0); Mean Platelet Volume 10.8 fL (9.4-12.4); Monocytes # 1.6 K/mcL (0.0-1.3); Monocytes % 11.1 %; Neutrophils # 10.9 K/mcL (1.6-8.9); Platelet Count 154 K/mcL (140-400); Red Blood Count 3.26 M/mcL (4.19-5.50); Red Cell Distribution Width 14.5 % (11.5-14.5); Segmented Neutrophils % 78.6 %; White Blood Count 13.9 K/mcL (4.3-11.1)
[2022-04-27 03:49] LABS: BUN/Creatinine Ratio 19 (6-26); Blood Urea Nitrogen 15 mg/dL (8-23); Calcium 9.3 mg/dL (8.6-10.3); Carbon Dioxide 22 mEq/L (23-29); Chloride 107 mEq/L (98-107); Glucose 168 mg/dL (70-105); Magnesium 2.2 mg/dL (1.6-2.6); Osmolality,Calculated 289 (280-300); Sodium 137 mEq/L (136-145); eGFR For African Americans > 60 (> 60); eGFR For Non-African Americans > 60 (> 60)
[2022-04-27 04:01] LABS: INR 1.1; Prothrombin Time 12.8 Seconds (9.4-12.1)
[2022-04-27 04:04] LABS: Activated Partial Thrombo Time 27.3 Seconds (26.0-36.0)
[2022-04-27] MEDS: Albumin Human 5% 12.5 GM/250 ML IV.SOLN IVPB PRN (04:20)
[2022-04-27] MEDS: *HR* Enoxaparin 40 MG/0.4 ML SYRINGE SQ SCH (05:21)
[2022-04-27] MEDS: Insulin LISPRO 300 UNITS/3 ML VIAL SUBQ SCH ×6 (06:04→16:13)
[2022-04-27] MEDS: Furosemide 40 MG TABLET PO SCH ×2 (07:38→18:06)
[2022-04-27] MEDS: Isosorbide MONOnitrate (24 HR) 30 MG TAB.ER.24H PO SCH (07:38)
[2022-04-27] MEDS: Aspirin 81 MG TAB.CHEW PO SCH (07:38)
[2022-04-27] MEDS: Gabapentin 400 MG CAPSULE PO SCH ×3 (07:39→20:01)
[2022-04-27] MEDS: carvediloL 6.25 MG TABLET PO SCH ×2 (07:39→18:06)
[2022-04-27] MEDS: Valsartan 160 MG TABLET PO SCH (07:39)
[2022-04-27] MEDS: Gabapentin 100 MG CAPSULE PO SCH ×3 (07:39→20:01)
[2022-04-27] MEDS: Pantoprazole 40 MG VIAL IVP SCH (07:40)
[2022-04-27] MEDS: Chlorhexidine Rinse 15 ML MOUTHWASH MM SCH ×2 (07:40→20:01)
[2022-04-27] MEDS: Clindamycin 900 MG/50 ML 900 MG/50 ML IV.SOLN IVPB SCH ×3 (07:41→23:06)
[2022-04-27] MEDS: Insulin DETEMIR 100 UNIT/ML X5UNITS SUBQ SCH ×2 (07:41→20:01)
[2022-04-27] MEDS: *HR* Amiodarone 200 MG TABLET PO SCH ×2 (11:37→20:01)
[2022-04-27] MEDS: *HR* HYDROmorphone 2 MG/ML SYRINGE IVP PRN ×2 (16:04→23:20)
[2022-04-27] MEDS: DOBUTamine 1,000 MG/250 ML BAG IVC SCH (19:10)
[2022-04-27] MEDS: Nitroprusside 50 MG in D5% in Water 250 ML IVC SCH (19:11)
[2022-04-27] MEDS: Norepinephrine 4 MG/254 ML IV.SOLN IVC SCH ×2 (19:30→20:02)
[2022-04-28 03:14] LABS: Basophils % 0.2 %; Eosinophils % 0.1 %; Hematocrit 28.4 % (37.5-50.1); Hemoglobin 9.3 g/dL (12.9-16.9); Immature Granulocytes % 0.6 % (0-4); Lymphocytes # 1.7 K/mcL (0.6-4.6); Lymphocytes % 9.6 %; Mean Corpuscular HGB Conc 32.7 g/dL (31.6-35.5); Mean Corpuscular Volume 97.6 fL (83.0-100.0); Mean Platelet Volume 10.7 fL (9.4-12.4); Monocytes # 2.4 K/mcL (0.0-1.3); Monocytes % 13.8 %; Neutrophils # 13.1 K/mcL (1.6-8.9); Platelet Count 166 K/mcL (140-400); Red Blood Count 2.91 M/mcL (4.19-5.50); Red Cell Distribution Width 15.1 % (11.5-14.5); Segmented Neutrophils % 75.7 %; White Blood Count 17.2 K/mcL (4.3-11.1)
[2022-04-28 03:31] LABS: BUN/Creatinine Ratio 16 (6-26); Blood Urea Nitrogen 22 mg/dL (8-23); Calcium 8.7 mg/dL (8.6-10.3); Carbon Dioxide 22 mEq/L (23-29); Chloride 105 mEq/L (98-107); Glucose 257 mg/dL (70-105); Magnesium 2.1 mg/dL (1.6-2.6); Osmolality,Calculated 298 (280-300); Potassium 4.1 mEq/L (3.5-5.1); Sodium 138 mEq/L (136-145); eGFR For African Americans > 60 (> 60); eGFR For Non-African Americans 51 (> 60)
[2022-04-28] MEDS: *HR* Enoxaparin 40 MG/0.4 ML SYRINGE SQ SCH (05:03)
[2022-04-28] MEDS: Pantoprazole 40 MG VIAL IVP SCH (08:05)
[2022-04-28] MEDS: Clindamycin 900 MG/50 ML 900 MG/50 ML IV.SOLN IVPB SCH (08:06)
[2022-04-28] MEDS: Chlorhexidine Rinse 15 ML MOUTHWASH MM SCH ×2 (08:06→20:03)
[2022-04-28] MEDS: Aspirin 81 MG TAB.CHEW PO SCH (08:07)
[2022-04-28] MEDS: *HR* Amiodarone 200 MG TABLET PO SCH ×2 (08:07→20:03)
[2022-04-28] MEDS: Gabapentin 100 MG CAPSULE PO SCH ×3 (08:07→20:03)
[2022-04-28] MEDS: Gabapentin 400 MG CAPSULE PO SCH ×3 (08:08→20:03)
[2022-04-28] MEDS: Insulin LISPRO 300 UNITS/3 ML VIAL SUBQ SCH ×6 (08:08→16:46)
[2022-04-28] MEDS: Isosorbide MONOnitrate (24 HR) 30 MG TAB.ER.24H PO SCH (08:08)
[2022-04-28] MEDS: Furosemide 40 MG TABLET PO SCH ×2 (08:10→17:53)
[2022-04-28] MEDS: Insulin DETEMIR 100 UNIT/ML X5UNITS SUBQ SCH ×2 (08:35→20:03)
[2022-04-28] MEDS: Norepinephrine 4 MG/254 ML IV.SOLN IVC SCH ×2 (09:32→15:58)
[2022-04-28] MEDS: Valsartan 160 MG TABLET PO SCH (13:49)
[2022-04-28] MEDS: carvediloL 6.25 MG TABLET PO SCH ×2 (13:49→17:53)
[2022-04-28] MEDS: Albumin Human 5% 12.5 GM/250 ML IV.SOLN IVC SCH ×2 (15:15→17:55)
[2022-04-28] MEDS ORDERED: Insulin LISPRO 300 UNITS/3 ML VIAL SUBQ ONE (16:36)
[2022-04-28] MEDS: DOBUTamine 1,000 MG/250 ML BAG IVC SCH (17:46)
[2022-04-28] MEDS: Nitroprusside 50 MG in D5% in Water 250 ML IVC SCH (17:47)
[2022-04-29 03:38] LABS: Basophils % 0.1 %; Hematocrit 25.5 % (37.5-50.1); Hemoglobin 8.4 g/dL (12.9-16.9); Immature Granulocytes % 0.6 % (0-4); Lymphocytes # 1.7 K/mcL (0.6-4.6); Lymphocytes % 11.2 %; Mean Corpuscular HGB Conc 32.9 g/dL (31.6-35.5); Mean Corpuscular Hemoglobin 31.8 pg (28.0-33.3); Mean Corpuscular Volume 96.6 fL (83.0-100.0); Monocytes # 1.7 K/mcL (0.0-1.3); Monocytes % 11.2 %; Neutrophils # 11.8 K/mcL (1.6-8.9); Nucleated Red Blood Cells 0.2 /100 WBC (0); Platelet Count 172 K/mcL (140-400); Red Blood Count 2.64 M/mcL (4.19-5.50); Red Cell Distribution Width 15.2 % (11.5-14.5); Segmented Neutrophils % 76.9 %; White Blood Count 15.4 K/mcL (4.3-11.1)
[2022-04-29 03:55] LABS: Calcium 8.8 mg/dL (8.6-10.3); Magnesium 2.3 mg/dL (1.6-2.6); Potassium 3.7 mEq/L (3.5-5.1)
[2022-04-29] MEDS: Norepinephrine 4 MG/254 ML IV.SOLN IVC SCH (04:31)
[2022-04-29] MEDS: *HR* Enoxaparin 40 MG/0.4 ML SYRINGE SQ SCH (05:02)
[2022-04-29] MEDS ORDERED: Norepinephrine 4 MG in 0.9 % Sodium Chloride 250 ML IVC PRN (07:00)
[2022-04-29] MEDS ORDERED: del Nido Cardioplegia Solution PF ONE ×2 (07:00)
[2022-04-29] MEDS ORDERED: Heparin 15,000 UNIT in 0.9 % Sodium Chloride 500 ML IV ONE (07:00)
[2022-04-29] MEDS: Chlorhexidine Rinse 15 ML MOUTHWASH MM SCH ×2 (08:42→20:11)
[2022-04-29] MEDS: Pantoprazole 40 MG VIAL IVP SCH (08:42)
[2022-04-29] MEDS: Gabapentin 400 MG CAPSULE PO SCH ×3 (08:42→20:11)
[2022-04-29] MEDS: *HR* Amiodarone 200 MG TABLET PO SCH ×2 (08:43→20:11)
[2022-04-29] MEDS: Aspirin 81 MG TAB.CHEW PO SCH (08:43)
[2022-04-29] MEDS: Furosemide 40 MG TABLET PO SCH ×2 (08:43→18:17)
[2022-04-29] MEDS: carvediloL 6.25 MG TABLET PO SCH ×2 (08:44→18:08)
[2022-04-29] MEDS: Valsartan 160 MG TABLET PO SCH (08:45)
[2022-04-29] MEDS: Isosorbide MONOnitrate (24 HR) 30 MG TAB.ER.24H PO SCH (08:45)
[2022-04-29] MEDS: Insulin LISPRO 300 UNITS/3 ML VIAL SUBQ SCH ×2 (08:45→08:46)
[2022-04-29] MEDS: Insulin DETEMIR 100 UNIT/ML X5UNITS SUBQ SCH (08:49)
[2022-04-29] MEDS ORDERED: Dextrose Gel 15 GM/37.5 ML TUBE PO PRN ×2 (09:46)
[2022-04-29] MEDS ORDERED: Acetaminophen 325 MG TABLET PO PRN (09:46)
[2022-04-29] MEDS ORDERED: Nitroglycerin 0.4 MG TAB.SUBL SL PRN (09:46)
[2022-04-29] MEDS ORDERED: Ondansetron 4 MG/2 ML VIAL IVP PRN (09:46)
[2022-04-29] MEDS ORDERED: haloperidoL 1 MG TABLET PO PRN (09:46)
[2022-04-29] MEDS ORDERED: *HR* HYDROmorphone 2 MG/ML SYRINGE IVP PRN (09:46)
[2022-04-29] MEDS ORDERED: Bisacodyl 10 MG RECTAL SUPPOSITORY RC PRN (09:46)
[2022-04-29] MEDS ORDERED: D5% in Water 1,000 ML IVC PRN (09:46)
[2022-04-29] MEDS ORDERED: Naloxone 0.4 MG/ML INJ IVP PRN (09:46)
[2022-04-29] MEDS ORDERED: *HR* Dextrose 50 % in Water (Syg) 50 ML SYRINGE IVP PRN ×2 (09:46→11:49)
[2022-04-29] MEDS ORDERED: Insulin Regular, Human 100 UNIT/ML IV PRN (09:46)
[2022-04-29] MEDS ORDERED: Albuterol 2.5 MG/3 ML NEBULIZER IH PRN (09:46)
[2022-04-29] MEDS ORDERED: Insulin LISPRO 300 UNITS/3 ML VIAL SUBQ SCH ×3 (11:30→21:00)
[2022-04-29] MEDS: *HR* OxyCODONE/APAP 5/325 TABLET PO PRN (14:26)
[2022-04-29] MEDS ORDERED: Insulin DETEMIR 100 UNIT/ML X5UNITS SUBQ SCH (21:00)
[2022-04-30 03:41] LABS: Basophils % 0.2 %; Eosinophils # 0.1 K/mcL (0.0-0.6); Eosinophils % 0.9 %; Hemoglobin 8.8 g/dL (12.9-16.9); Lymphocytes # 1.9 K/mcL (0.6-4.6); Lymphocytes % 14.3 %; Mean Corpuscular HGB Conc 33.8 g/dL (31.6-35.5); Mean Corpuscular Volume 97.4 fL (83.0-100.0); Mean Platelet Volume 10.8 fL (9.4-12.4); Monocytes # 1.4 K/mcL (0.0-1.3); Monocytes % 10.5 %; Neutrophils # 9.9 K/mcL (1.6-8.9); Platelet Count 230 K/mcL (140-400); Red Blood Count 2.67 M/mcL (4.19-5.50); Red Cell Distribution Width 15.3 % (11.5-14.5); Segmented Neutrophils % 73.1 %; White Blood Count 13.5 K/mcL (4.3-11.1)
[2022-04-30 04:05] LABS: BUN/Creatinine Ratio 29 (6-26); Blood Urea Nitrogen 35 mg/dL (8-23); Calcium 8.6 mg/dL (8.6-10.3); Carbon Dioxide 24 mEq/L (23-29); Chloride 104 mEq/L (98-107); Glucose 142 mg/dL (70-105); Magnesium 2.3 mg/dL (1.6-2.6); Osmolality,Calculated 294 (280-300); Potassium 3.6 mEq/L (3.5-5.1); Sodium 137 mEq/L (136-145); eGFR For African Americans > 60 (> 60); eGFR For Non-African Americans 60 (> 60)
[2022-04-30] MEDS ORDERED: *HR* Enoxaparin 40 MG/0.4 ML SYRINGE SQ SCH (06:00)
[2022-04-30] MEDS ORDERED: Insulin LISPRO 300 UNITS/3 ML VIAL SUBQ SCH ×2 (07:30→21:00)
[2022-04-30] MEDS ORDERED: Buckersberg's Blood Cardioplegia PF ONE ×2 (08:00→16:45)
[2022-04-30] MEDS ORDERED: Insulin DETEMIR 100 UNIT/ML X5UNITS SUBQ SCH (09:00)
[2022-04-30] MEDS ORDERED: Pantoprazole 40 MG VIAL IVP SCH (09:00)
[2022-04-30] MEDS: Chlorhexidine Rinse 15 ML MOUTHWASH MM SCH (09:08)
[2022-04-30] MEDS: Furosemide 40 MG TABLET PO SCH ×2 (09:09→21:59)
[2022-04-30] MEDS: Valsartan 160 MG TABLET PO SCH (09:09)
[2022-04-30] MEDS: Gabapentin 400 MG CAPSULE PO SCH ×2 (09:10→21:43)
[2022-04-30] MEDS: *HR* Amiodarone 200 MG TABLET PO SCH ×2 (09:10→21:59)
[2022-04-30] MEDS: Isosorbide MONOnitrate (24 HR) 30 MG TAB.ER.24H PO SCH (09:10)
[2022-04-30] MEDS: carvediloL 6.25 MG TABLET PO SCH (09:10)
[2022-04-30] MEDS: Aspirin 81 MG TAB.CHEW PO SCH (09:11)
[2022-04-30] MEDS: Insulin LISPRO 300 UNITS/3 ML VIAL SUBQ SCH ×6 (09:12→21:59)
[2022-04-30] MEDS: *HR* OxyCODONE/APAP 5/325 TABLET PO PRN (09:23)
[2022-04-30] MEDS ORDERED: Dextrose Gel 15 GM/37.5 ML TUBE PO PRN ×2 (09:42)
[2022-04-30] MEDS ORDERED: D5% in Water 1,000 ML IVC PRN (09:42)
[2022-04-30] MEDS ORDERED: *HR* Dextrose 50 % in Water (Syg) 50 ML SYRINGE IVP PRN (09:42)
[2022-04-30] MEDS ORDERED: Albumin Human 5% 12.5 GM/250 ML IV.SOLN IVC ONE (12:31)
[2022-04-30] MEDS ORDERED: 0.9 % Sodium Chloride 1,000 ML ONE (12:41)
[2022-04-30] MEDS ORDERED: Norepinephrine 4 MG/254 ML IV.SOLN IVC ONE (12:46)
[2022-04-30] MEDS ORDERED: Perflutren Lipid Microsphere 1.3 ML in 0.9 % Sodium Chloride 8.7 ML IVP PRN (12:48)
[2022-04-30] MEDS ORDERED: Amiodarone Premix 150 MG/100 ML BAG IVPB ONE (12:58)
[2022-04-30] MEDS ORDERED: Magnesium Sulfate 1 GM/102 ML PIGGYBACK IVPB ONE (12:59)
[2022-04-30] MEDS: Norepinephrine 4 MG/254 ML IV.SOLN IVC SCH (13:05)
[2022-04-30] MEDS ORDERED: *HR* Heparin 5,000 UNIT/ML VIAL IVP PRN ×2 (13:19)
[2022-04-30] MEDS ORDERED: *HR* Heparin 5,000 UNIT/ML VIAL IVP ONE (13:19)
[2022-04-30] MEDS: Heparin 25,000UNIT/250ML 1/2NS 25,000 UNIT/250 ML IV.SOLN IVC SCH (13:30)
[2022-04-30] MEDS ORDERED: Calcium Gluconate 1gm/50mL 1 GM/50 ML BAG IVPB SCH (13:30)
[2022-04-30] MEDS ORDERED: Artificial Tears SOLN 15 ML BOTTLE BOTH EYES PRN (14:04)
[2022-04-30 14:06] LABS: BUN/Creatinine Ratio 31 (6-26); Blood Urea Nitrogen 41 mg/dL (8-23); Calcium 8.7 mg/dL (8.6-10.3); Carbon Dioxide 20 mEq/L (23-29); Chloride 103 mEq/L (98-107); Glucose 279 mg/dL (70-105); Magnesium 2.4 mg/dL (1.6-2.6); Osmolality,Calculated 296 (280-300); Potassium 4.1 mEq/L (3.5-5.1); Sodium 133 mEq/L (136-145); eGFR For African Americans > 60 (> 60); eGFR For Non-African Americans 53 (> 60)
[2022-04-30] MEDS ORDERED: Chlorhexidine Rinse 15 ML MOUTHWASH MM SCH ×2 (14:15→21:00)
[2022-04-30 14:18] LABS: Hematocrit 27.4 % (37.5-50.1); Hemoglobin 9.1 g/dL (12.9-16.9); Immature Platelets 5.2 % (1.1-6.1); Mean Corpuscular HGB Conc 33.2 g/dL (31.6-35.5); Mean Corpuscular Hemoglobin 31.8 pg (28.0-33.3); Mean Corpuscular Volume 95.8 fL (83.0-100.0); Mean Platelet Volume 10.9 fL (9.4-12.4); Platelet Count 298 K/mcL (140-400); Red Blood Count 2.86 M/mcL (4.19-5.50); Red Cell Distribution Width 15.1 % (11.5-14.5); Segmented Neutrophils % 72.5 %; White Blood Count 17.2 K/mcL (4.3-11.1)
[2022-04-30 14:19] LABS: Basophils # 0.1 K/mcL (0.0-0.2); Basophils % 0.3 %; Eosinophils # 0.1 K/mcL (0.0-0.6); Eosinophils % 0.6 %; Immature Granulocytes % 1.5 % (0-4); Lymphocytes # 2.7 K/mcL (0.6-4.6); Lymphocytes % 15.5 %; Monocytes # 1.7 K/mcL (0.0-1.3); Monocytes % 9.6 %; Neutrophils # 12.5 K/mcL (1.6-8.9)
[2022-04-30 14:20] LABS: Platelet Clumps Few (Not Present); Platelet Estimate Normal (Normal)
[2022-04-30] MEDS ORDERED: 0.9 % Sodium Chloride 2,000 ML ONE (14:50)
[2022-04-30] MEDS ORDERED: Nitroglycerin 1,000 MCG/5 ML VIAL IV ONE (14:50)
[2022-04-30] MEDS ORDERED: Heparin 1,000 UNITS/500 mL 500 ML ONE (14:50)
[2022-04-30] MEDS ORDERED: *HR* Heparin 10,000 UNIT/10 ML VIAL ONE (14:50)
[2022-04-30] MEDS ORDERED: Iopamidol - 370 200 ML INFUS..BTL ONE (14:50)
[2022-04-30 15:10] LABS: Hematocrit 27.3 % (37.5-50.1); Hemoglobin 9.1 g/dL (12.9-16.9); Mean Corpuscular HGB Conc 33.3 g/dL (31.6-35.5); Mean Corpuscular Hemoglobin 32.2 pg (28.0-33.3); Mean Corpuscular Volume 96.5 fL (83.0-100.0); Mean Platelet Volume 11.3 fL (9.4-12.4); Platelet Count 237 K/mcL (140-400); Red Blood Count 2.83 M/mcL (4.19-5.50); Red Cell Distribution Width 15.2 % (11.5-14.5); White Blood Count 20.2 K/mcL (4.3-11.1)
[2022-04-30] MEDS ORDERED: *HR* Norepinephrine 4 MG/4 ML VIAL IVC ONE (15:41)
[2022-04-30] MEDS ORDERED: 0.9 % Sodium Chloride 250 ML ONE (15:41)
[2022-04-30] MEDS ORDERED: *HR* FentaNYL (PF) 100 MCG/2 ML VIAL ONE (15:55)
[2022-04-30] MEDS ORDERED: Norepinephrine 4 MG in 0.9 % Sodium Chloride 250 ML IVC PRN (16:35)
[2022-04-30] MEDS ORDERED: Heparin 15,000 UNIT in 0.9 % Sodium Chloride 500 ML IV ONE (16:45)
[2022-04-30] MEDS ORDERED: del Nido Cardioplegia Solution PF ONE ×2 (16:45)
[2022-04-30] MEDS ORDERED: Clindamycin 900 MG/50 ML 900 MG/50 ML IV.SOLN IVPB ONE ×2 (16:51→19:25)
[2022-04-30] MEDS ORDERED: Calcium Gluconate 1gm/50mL 1 GM/50 ML BAG IVPB PRN (16:53)
[2022-04-30] MEDS ORDERED: Albumin Human 5% 12.5 GM/250 ML IV.SOLN IVPB PRN (16:53)
[2022-04-30] MEDS ORDERED: Potassium Chloride 40 MEQ/200 ML BAG IVPB PRN (16:53)
[2022-04-30] MEDS ORDERED: Insulin Regular, Human 100 UNIT/ML IV PRN (16:53)
[2022-04-30] MEDS ORDERED: *HR* FentaNYL (PF) 100 MCG/2 ML VIAL IVP PRN (16:53)
[2022-04-30] MEDS ORDERED: Nitroprusside 50 MG in D5% in Water 250 ML IVC SCH (17:00)
[2022-04-30] MEDS ORDERED: Papaverine 60 MG/2 ML VIAL IVP ONE (17:42)
[2022-04-30 17:47] LABS: Basophils % 0.3 %; Eosinophils # 0.1 K/mcL (0.0-0.6); Eosinophils % 0.6 %; Hematocrit 27.8 % (37.5-50.1); Hemoglobin 9.1 g/dL (12.9-16.9); Immature Granulocytes % 1.4 % (0-4); Lymphocytes # 2.8 K/mcL (0.6-4.6); Lymphocytes % 17.9 %; Mean Corpuscular HGB Conc 32.7 g/dL (31.6-35.5); Mean Corpuscular Volume 97.9 fL (83.0-100.0); Mean Platelet Volume 10.5 fL (9.4-12.4); Monocytes # 1.7 K/mcL (0.0-1.3); Monocytes % 10.6 %; Neutrophils # 10.8 K/mcL (1.6-8.9); Platelet Count 279 K/mcL (140-400); Red Blood Count 2.84 M/mcL (4.19-5.50); Red Cell Distribution Width 15.2 % (11.5-14.5); Segmented Neutrophils % 69.2 %; White Blood Count 15.6 K/mcL (4.3-11.1)
[2022-04-30 17:53] LABS: INR 1.2; Prothrombin Time 13.8 Seconds (9.4-12.1)
[2022-04-30 17:56] LABS: Activated Partial Thrombo Time 30.6 Seconds (26.0-36.0)
[2022-04-30 18:05] LABS: BUN/Creatinine Ratio 30 (6-26); Blood Urea Nitrogen 42 mg/dL (8-23); Calcium 8.8 mg/dL (8.6-10.3); Carbon Dioxide 23 mEq/L (23-29); Chloride 102 mEq/L (98-107); Glucose 257 mg/dL (70-105); Osmolality,Calculated 297 (280-300); Potassium 4.2 mEq/L (3.5-5.1); Sodium 134 mEq/L (136-145); eGFR For African Americans > 60 (> 60); eGFR For Non-African Americans 50 (> 60)
[2022-04-30] MEDS ORDERED: *HR* Midazolam HCl 5 MG/5 ML VIAL IVP ONE (18:07)
[2022-04-30] MEDS ORDERED: *HR* FentaNYL (PF) 250 MCG/5 ML VIAL ONE (18:08)
[2022-04-30] MEDS ORDERED: *HR* Etomidate 20 MG/10 ML AMPUL IVP ONE (18:09)
[2022-04-30] MEDS ORDERED: *HR* Rocuronium Bromide 50 MG/5 ML VIAL ONE ×2 (18:09→19:48)
[2022-04-30] MEDS ORDERED: Protamine Sulfate 250 MG/25 ML VIAL IVP ONE (18:10)
[2022-04-30] MEDS ORDERED: Calcium Gluconate 1,000 MG/10 ML VIAL ONE (18:10)
[2022-04-30] MEDS ORDERED: DOBUTamine 1,000 MG/250 ML BAG ONE (18:12)
[2022-04-30 19:25] LABS: ABG Base Excess -4 mEq/L (-2 to 3); ABG Chloride 106 mEq/L (98-107); ABG Glucose 231 mg/dL (60-95); ABG HCO3 22 mEq/L (21-27); ABG Ionized Calcium 1.18 mmol/L (1.15-1.35); ABG Oxygen Saturation 97 % (95-98); ABG PCO2 45 mmHg (35-45); ABG PO2 104 mmHg (85-104); ABG TCO2 23 mEq/L (20-26)
[2022-04-30 20:25] LABS: ABG Base Excess -3 mEq/L (-2 to 3); ABG Chloride 105 mEq/L (98-107); ABG Glucose 216 mg/dL (60-95); ABG HCO3 21 mEq/L (21-27); ABG Ionized Calcium 1.15 mmol/L (1.15-1.35); ABG Oxygen Saturation 100 % (95-98); ABG PCO2 36 mmHg (35-45); ABG PH 7.38 pH Units (7.32-7.45); ABG PO2 279 mmHg (85-104); ABG TCO2 22 mEq/L (20-26)
[2022-04-30 21:34] LABS: ABG Base Excess -5 mEq/L (-2 to 3); ABG Chloride 106 mEq/L (98-107); ABG Glucose 238 mg/dL (60-95); ABG HCO3 21 mEq/L (21-27); ABG Ionized Calcium 1.28 mmol/L (1.15-1.35); ABG Oxygen Saturation 99 % (95-98); ABG PCO2 40 mmHg (35-45); ABG PH 7.32 pH Units (7.32-7.45); ABG PO2 127 mmHg (85-104); ABG TCO2 22 mEq/L (20-26)
[2022-04-30] MEDS: Artificial Tears SOLN 15 ML BOTTLE BOTH EYES SCH ×2 (21:58→21:59)
[2022-04-30] MEDS: Insulin DETEMIR 100 UNIT/ML X5UNITS SUBQ SCH (21:59)
[2022-04-30] MEDS: DOBUTamine 1,000 MG/250 ML BAG IVC SCH (22:30)
[2022-04-30 22:31] LABS: ABG Base Excess -4 mEq/L (-2 to 3); ABG HCO3 21 mEq/L (21-27); ABG Oxygen Saturation 93 % (95-98); ABG PCO2 36 mmHg (35-45); ABG PH 7.37 pH Units (7.32-7.45); ABG PO2 68 mmHg (85-104); ABG TCO2 22 mEq/L (20-26); Blood Gas Modality AF; Blood Gas VT 500 cc
[2022-04-30] MEDS ORDERED: FentaNYL (PF) 1,000 MCG/100 ML IV.SOLN IVC SCH (23:15)
[2022-05-01 00:17] LABS: Basophils # 0.1 K/mcL (0.0-0.2); Basophils % 0.4 %; Eosinophils # 0.1 K/mcL (0.0-0.6); Eosinophils % 1.1 %; Hematocrit 24.9 % (37.5-50.1); Hemoglobin 8.2 g/dL (12.9-16.9); Immature Granulocytes % 2.8 % (0-4); Lymphocytes # 1.8 K/mcL (0.6-4.6); Lymphocytes % 14.5 %; Mean Corpuscular HGB Conc 32.9 g/dL (31.6-35.5); Mean Corpuscular Hemoglobin 32.3 pg (28.0-33.3); Mean Platelet Volume 10.4 fL (9.4-12.4); Monocytes # 1.3 K/mcL (0.0-1.3); Monocytes % 10.4 %; Neutrophils # 8.8 K/mcL (1.6-8.9); Platelet Count 205 K/mcL (140-400); Red Blood Count 2.54 M/mcL (4.19-5.50); Red Cell Distribution Width 15.1 % (11.5-14.5); Segmented Neutrophils % 70.8 %; White Blood Count 12.4 K/mcL (4.3-11.1)
[2022-05-01] MEDS: Artificial Tears SOLN 15 ML BOTTLE BOTH EYES SCH ×4 (00:19→12:21)
[2022-05-01 00:28] LABS: BUN/Creatinine Ratio 33 (6-26); Blood Urea Nitrogen 36 mg/dL (8-23); Calcium 8.5 mg/dL (8.6-10.3); Carbon Dioxide 22 mEq/L (23-29); Chloride 106 mEq/L (98-107); Glucose 242 mg/dL (70-105); Magnesium 2.2 mg/dL (1.6-2.6); Osmolality,Calculated 298 (280-300); Potassium 4.1 mEq/L (3.5-5.1); Sodium 136 mEq/L (136-145); eGFR For African Americans > 60 (> 60); eGFR For Non-African Americans > 60 (> 60)
[2022-05-01 00:30] LABS: INR 1.4; Prothrombin Time 15.2 Seconds (9.4-12.1)
[2022-05-01 00:33] LABS: Activated Partial Thrombo Time 29.2 Seconds (26.0-36.0)
[2022-05-01] MEDS: Norepinephrine 4 MG/254 ML IV.SOLN IVC SCH ×4 (01:45→16:55)
[2022-05-01 02:09] LABS: ABG Base Excess -3 mEq/L (-2 to 3); ABG HCO3 22 mEq/L (21-27); ABG Oxygen Saturation 96 % (95-98); ABG PCO2 37 mmHg (35-45); ABG PH 7.38 pH Units (7.32-7.45); ABG PO2 86 mmHg (85-104); ABG TCO2 23 mEq/L (20-26); Blood Gas Modality AF; Blood Gas VT 500 cc
[2022-05-01 04:19] LABS: ABG Base Excess -2 mEq/L (-2 to 3); ABG HCO3 22 mEq/L (21-27); ABG Oxygen Saturation 97 % (95-98); ABG PCO2 34 mmHg (35-45); ABG PH 7.42 pH Units (7.32-7.45); ABG PO2 92 mmHg (85-104); ABG TCO2 23 mEq/L (20-26); Blood Gas VT 500 cc
[2022-05-01] MEDS: Heparin 25,000UNIT/250ML 1/2NS 25,000 UNIT/250 ML IV.SOLN IVC SCH (04:49)
[2022-05-01 05:04] LABS: Basophils # 0.1 K/mcL (0.0-0.2); Basophils % 0.3 %; Eosinophils # 0.1 K/mcL (0.0-0.6); Eosinophils % 0.5 %; Hematocrit 26.6 % (37.5-50.1); Hemoglobin 8.8 g/dL (12.9-16.9); Immature Granulocytes % 1.5 % (0-4); Lymphocytes % 13.1 %; Mean Corpuscular HGB Conc 33.1 g/dL (31.6-35.5); Mean Corpuscular Hemoglobin 32.1 pg (28.0-33.3); Mean Corpuscular Volume 97.1 fL (83.0-100.0); Mean Platelet Volume 10.5 fL (9.4-12.4); Monocytes # 1.6 K/mcL (0.0-1.3); Monocytes % 10.7 %; Neutrophils # 11.2 K/mcL (1.6-8.9); Platelet Count 265 K/mcL (140-400); Red Blood Count 2.74 M/mcL (4.19-5.50); Red Cell Distribution Width 15.1 % (11.5-14.5); Segmented Neutrophils % 73.9 %; White Blood Count 15.1 K/mcL (4.3-11.1)
[2022-05-01 05:12] LABS: INR 1.2; Prothrombin Time 13.4 Seconds (9.4-12.1)
[2022-05-01 05:21] LABS: BUN/Creatinine Ratio 32 (6-26); Blood Urea Nitrogen 33 mg/dL (8-23); Calcium 8.7 mg/dL (8.6-10.3); Carbon Dioxide 23 mEq/L (23-29); Chloride 107 mEq/L (98-107); Glucose 188 mg/dL (70-105); Magnesium 2.6 mg/dL (1.6-2.6); Osmolality,Calculated 298 (280-300); Potassium 3.8 mEq/L (3.5-5.1); Sodium 138 mEq/L (136-145); eGFR For African Americans > 60 (> 60); eGFR For Non-African Americans > 60 (> 60)
[2022-05-01] MEDS: Insulin LISPRO 300 UNITS/3 ML VIAL SUBQ SCH ×7 (07:16→20:08)
[2022-05-01] MEDS: Aspirin 81 MG TAB.CHEW PO SCH (07:32)
[2022-05-01] MEDS: *HR* Amiodarone 200 MG TABLET PO SCH ×2 (07:32→19:53)
[2022-05-01] MEDS: Chlorhexidine Rinse 15 ML MOUTHWASH MM SCH ×2 (07:32→19:52)
[2022-05-01] MEDS: Furosemide 40 MG TABLET PO SCH ×2 (07:32→16:54)
[2022-05-01] MEDS: Gabapentin 400 MG CAPSULE PO SCH ×3 (07:32→19:53)
[2022-05-01] MEDS: Valsartan 160 MG TABLET PO SCH (07:32)
[2022-05-01] MEDS: Insulin DETEMIR 100 UNIT/ML X5UNITS SUBQ SCH ×2 (07:33→20:09)
[2022-05-01] MEDS: Isosorbide MONOnitrate (24 HR) 30 MG TAB.ER.24H PO SCH (08:28)
[2022-05-01 08:31] LABS: ABG Base Excess -3 mEq/L (-2 to 3); ABG HCO3 21 mEq/L (21-27); ABG Oxygen Saturation 96 % (95-98); ABG PCO2 30 mmHg (35-45); ABG PH 7.45 pH Units (7.32-7.45); ABG PO2 74 mmHg (85-104); ABG TCO2 22 mEq/L (20-26); Blood Gas Modality ASSIST CONTROL; Blood Gas Pressure Support 8 cm H2O
[2022-05-01] MEDS ORDERED: Pantoprazole 40 MG VIAL IVP SCH (09:00)
[2022-05-01] MEDS: *HR* OxyCODONE/APAP 5/325 TABLET PO PRN ×3 (14:17→22:22)
[2022-05-01] MEDS: DOBUTamine 1,000 MG/250 ML BAG IVC SCH (16:54)
[2022-05-02] MEDS: Norepinephrine 4 MG/254 ML IV.SOLN IVC SCH ×5 (00:58→17:32)
[2022-05-02] MEDS: *HR* OxyCODONE/APAP 5/325 TABLET PO PRN ×3 (03:36→20:18)
[2022-05-02 04:33] LABS: Basophils # 0.1 K/mcL (0.0-0.2); Basophils % 0.3 %; Eosinophils # 0.1 K/mcL (0.0-0.6); Eosinophils % 0.4 %; Hematocrit 26.2 % (37.5-50.1); Hemoglobin 8.4 g/dL (12.9-16.9); Immature Granulocytes % 1.8 % (0-4); Lymphocytes # 2.1 K/mcL (0.6-4.6); Lymphocytes % 12.7 %; Mean Corpuscular HGB Conc 32.1 g/dL (31.6-35.5); Mean Corpuscular Hemoglobin 31.5 pg (28.0-33.3); Mean Corpuscular Volume 98.1 fL (83.0-100.0); Monocytes % 12.1 %; Neutrophils # 11.9 K/mcL (1.6-8.9); Nucleated Red Blood Cells 0.2 /100 WBC (0); Platelet Count 301 K/mcL (140-400); Red Blood Count 2.67 M/mcL (4.19-5.50); Red Cell Distribution Width 15.4 % (11.5-14.5); Segmented Neutrophils % 72.7 %; White Blood Count 16.3 K/mcL (4.3-11.1)
[2022-05-02 04:52] LABS: BUN/Creatinine Ratio 24 (6-26); Blood Urea Nitrogen 24 mg/dL (8-23); Calcium 8.4 mg/dL (8.6-10.3); Carbon Dioxide 24 mEq/L (23-29); Chloride 105 mEq/L (98-107); Glucose 262 mg/dL (70-105); Magnesium 2.2 mg/dL (1.6-2.6); Osmolality,Calculated 295 (280-300); Potassium 3.9 mEq/L (3.5-5.1); Sodium 136 mEq/L (136-145); eGFR For African Americans > 60 (> 60); eGFR For Non-African Americans > 60 (> 60)
[2022-05-02] MEDS: *HR* Enoxaparin 40 MG/0.4 ML SYRINGE SQ SCH (05:34)
[2022-05-02] MEDS: *HR* Amiodarone 200 MG TABLET PO SCH ×2 (08:22→20:18)
[2022-05-02] MEDS: Aspirin 81 MG TAB.CHEW PO SCH (08:22)
[2022-05-02] MEDS: Furosemide 40 MG TABLET PO SCH ×2 (08:22→17:05)
[2022-05-02] MEDS: Gabapentin 400 MG CAPSULE PO SCH ×3 (08:22→20:18)
[2022-05-02] MEDS: Chlorhexidine Rinse 15 ML MOUTHWASH MM SCH ×2 (08:22→20:18)
[2022-05-02] MEDS: Valsartan 160 MG TABLET PO SCH (08:22)
[2022-05-02] MEDS: Isosorbide MONOnitrate (24 HR) 30 MG TAB.ER.24H PO SCH (08:23)
[2022-05-02] MEDS: Insulin LISPRO 300 UNITS/3 ML VIAL SUBQ SCH ×7 (08:26→20:19)
[2022-05-02] MEDS: Insulin DETEMIR 100 UNIT/ML X5UNITS SUBQ SCH ×2 (08:26→20:18)
[2022-05-02] MEDS: Albumin Human 5% 12.5 GM/250 ML IV.SOLN IVC SCH ×2 (11:33→13:18)
[2022-05-02] MEDS: DOBUTamine 1,000 MG/250 ML BAG IVC SCH ×2 (12:34→17:05)
[2022-05-03] MEDS: Norepinephrine 4 MG/254 ML IV.SOLN IVC SCH ×4 (00:30→19:18)
[2022-05-03 03:52] LABS: Basophils % 0.2 %; Eosinophils # 0.1 K/mcL (0.0-0.6); Eosinophils % 0.5 %; Hematocrit 25.2 % (37.5-50.1); Immature Granulocytes % 1.9 % (0-4); Lymphocytes # 2.4 K/mcL (0.6-4.6); Lymphocytes % 16.2 %; Mean Corpuscular HGB Conc 31.7 g/dL (31.6-35.5); Mean Corpuscular Volume 97.7 fL (83.0-100.0); Mean Platelet Volume 9.9 fL (9.4-12.4); Monocytes # 1.5 K/mcL (0.0-1.3); Neutrophils # 10.7 K/mcL (1.6-8.9); Nucleated Red Blood Cells 0.2 /100 WBC (0); Platelet Count 339 K/mcL (140-400); Red Blood Count 2.58 M/mcL (4.19-5.50); Red Cell Distribution Width 15.4 % (11.5-14.5); Segmented Neutrophils % 71.2 %
[2022-05-03 04:08] LABS: BUN/Creatinine Ratio 19 (6-26); Blood Urea Nitrogen 16 mg/dL (8-23); Calcium 8.4 mg/dL (8.6-10.3); Carbon Dioxide 23 mEq/L (23-29); Chloride 106 mEq/L (98-107); Glucose 192 mg/dL (70-105); Magnesium 2.1 mg/dL (1.6-2.6); Osmolality,Calculated 292 (280-300); Potassium 3.7 mEq/L (3.5-5.1); Sodium 138 mEq/L (136-145); eGFR For African Americans > 60 (> 60); eGFR For Non-African Americans > 60 (> 60)
[2022-05-03] MEDS: *HR* Enoxaparin 40 MG/0.4 ML SYRINGE SQ SCH (05:35)
[2022-05-03] MEDS: Gabapentin 400 MG CAPSULE PO SCH ×3 (08:09→19:58)
[2022-05-03] MEDS: *HR* Amiodarone 200 MG TABLET PO SCH ×2 (08:09→19:58)
[2022-05-03] MEDS: Valsartan 160 MG TABLET PO SCH (08:09)
[2022-05-03] MEDS: Furosemide 40 MG TABLET PO SCH ×2 (08:09→16:54)
[2022-05-03] MEDS: Chlorhexidine Rinse 15 ML MOUTHWASH MM SCH ×2 (08:09→19:58)
[2022-05-03] MEDS: Aspirin 81 MG TAB.CHEW PO SCH (08:09)
[2022-05-03] MEDS: Insulin LISPRO 300 UNITS/3 ML VIAL SUBQ SCH ×7 (08:10→20:08)
[2022-05-03] MEDS: Isosorbide MONOnitrate (24 HR) 30 MG TAB.ER.24H PO SCH (08:11)
[2022-05-03] MEDS: Insulin DETEMIR 100 UNIT/ML X5UNITS SUBQ SCH ×2 (08:16→21:16)
[2022-05-03] MEDS: *HR* OxyCODONE/APAP 5/325 TABLET PO PRN ×3 (08:17→19:58)
[2022-05-03] MEDS: *HR* LORazepam 0.5 MG TABLET PO PRN (19:58)
[2022-05-03 21:10] LABS: Basophils # 0.1 K/mcL (0.0-0.2); Basophils % 0.4 %; Eosinophils # 0.2 K/mcL (0.0-0.6); Eosinophils % 1.3 %; Hematocrit 25.1 % (37.5-50.1); Hemoglobin 7.9 g/dL (12.9-16.9); Immature Granulocytes % 2.1 % (0-4); Lymphocytes % 13.9 %; Mean Corpuscular HGB Conc 31.5 g/dL (31.6-35.5); Mean Corpuscular Hemoglobin 30.6 pg (28.0-33.3); Mean Corpuscular Volume 97.3 fL (83.0-100.0); Mean Platelet Volume 9.8 fL (9.4-12.4); Monocytes # 1.1 K/mcL (0.0-1.3); Monocytes % 7.8 %; Neutrophils # 10.6 K/mcL (1.6-8.9); Platelet Count 371 K/mcL (140-400); Red Blood Count 2.58 M/mcL (4.19-5.50); Red Cell Distribution Width 15.4 % (11.5-14.5); Segmented Neutrophils % 74.5 %; White Blood Count 14.3 K/mcL (4.3-11.1)
[2022-05-03] MEDS: Morphine Sulfate Oral CONC 10 MG/0.5 ML ORAL.SYG PO PRN (21:43)
[2022-05-04] MEDS ORDERED: Heparin 1,000 UNITS/500 mL 500 ML ONE (03:00)
[2022-05-04] MEDS: Norepinephrine 4 MG/254 ML IV.SOLN IVC SCH ×3 (05:12→09:52)
[2022-05-04] MEDS: *HR* Enoxaparin 40 MG/0.4 ML SYRINGE SQ SCH (05:12)
[2022-05-04 05:39] LABS: Basophils % 0.3 %; Eosinophils # 0.2 K/mcL (0.0-0.6); Eosinophils % 1.5 %; Hematocrit 24.7 % (37.5-50.1); Immature Granulocytes % 2.5 % (0-4); Lymphocytes # 2.2 K/mcL (0.6-4.6); Lymphocytes % 15.2 %; Mean Corpuscular HGB Conc 32.4 g/dL (31.6-35.5); Mean Corpuscular Hemoglobin 31.3 pg (28.0-33.3); Mean Corpuscular Volume 96.5 fL (83.0-100.0); Mean Platelet Volume 9.7 fL (9.4-12.4); Monocytes # 1.1 K/mcL (0.0-1.3); Neutrophils # 10.4 K/mcL (1.6-8.9); Nucleated Red Blood Cells 0.1 /100 WBC (0); Platelet Count 379 K/mcL (140-400); Red Blood Count 2.56 M/mcL (4.19-5.50); Red Cell Distribution Width 15.4 % (11.5-14.5); Segmented Neutrophils % 72.5 %; White Blood Count 14.3 K/mcL (4.3-11.1)
[2022-05-04 05:54] LABS: BUN/Creatinine Ratio 20 (6-26); Blood Urea Nitrogen 16 mg/dL (8-23); Calcium 8.5 mg/dL (8.6-10.3); Carbon Dioxide 24 mEq/L (23-29); Chloride 104 mEq/L (98-107); Glucose 230 mg/dL (70-105); Osmolality,Calculated 288 (280-300); Potassium 3.8 mEq/L (3.5-5.1); Sodium 135 mEq/L (136-145); eGFR For African Americans > 60 (> 60); eGFR For Non-African Americans > 60 (> 60)
[2022-05-04] MEDS ORDERED: Insulin DETEMIR 100 UNIT/ML X5UNITS SUBQ SCH (09:00)
[2022-05-04] MEDS: Insulin DETEMIR 100 UNIT/ML X5UNITS SUBQ SCH ×3 (09:03→22:32)
[2022-05-04] MEDS: Insulin LISPRO 300 UNITS/3 ML VIAL SUBQ SCH ×7 (09:04→20:34)
[2022-05-04] MEDS: Chlorhexidine Rinse 15 ML MOUTHWASH MM SCH ×2 (09:06→20:34)
[2022-05-04] MEDS: Furosemide 40 MG/4 ML VIAL IVP SCH ×2 (09:06→20:37)
[2022-05-04] MEDS: *HR* Amiodarone 200 MG TABLET PO SCH ×2 (09:06→20:34)
[2022-05-04] MEDS: Aspirin 81 MG TAB.CHEW PO SCH (09:07)
[2022-05-04] MEDS: Gabapentin 400 MG CAPSULE PO SCH ×3 (09:07→20:34)
[2022-05-04] MEDS: Isosorbide MONOnitrate (24 HR) 30 MG TAB.ER.24H PO SCH (09:08)
[2022-05-04] MEDS: Valsartan 160 MG TABLET PO SCH (09:08)
[2022-05-04] MEDS: *HR* OxyCODONE/APAP 5/325 TABLET PO PRN (22:32)
[2022-05-05 03:29] LABS: Hematocrit 24.3 % (37.5-50.1); Hemoglobin 7.7 g/dL (12.9-16.9); Mean Corpuscular HGB Conc 31.7 g/dL (31.6-35.5); Mean Corpuscular Hemoglobin 30.9 pg (28.0-33.3); Mean Corpuscular Volume 97.6 fL (83.0-100.0); Mean Platelet Volume 9.6 fL (9.4-12.4); Platelet Count 381 K/mcL (140-400); Red Blood Count 2.49 M/mcL (4.19-5.50); Red Cell Distribution Width 15.2 % (11.5-14.5); White Blood Count 12.1 K/mcL (4.3-11.1)
[2022-05-05 03:54] LABS: BUN/Creatinine Ratio 17 (6-26); Blood Urea Nitrogen 15 mg/dL (8-23); Calcium 8.6 mg/dL (8.6-10.3); Carbon Dioxide 27 mEq/L (23-29); Chloride 104 mEq/L (98-107); Glucose 221 mg/dL (70-105); Magnesium 1.9 mg/dL (1.6-2.6); Osmolality,Calculated 294 (280-300); Potassium 3.9 mEq/L (3.5-5.1); Sodium 138 mEq/L (136-145); eGFR For African Americans > 60 (> 60); eGFR For Non-African Americans > 60 (> 60)
[2022-05-05] MEDS: *HR* Enoxaparin 40 MG/0.4 ML SYRINGE SQ SCH (06:15)
[2022-05-05] MEDS: Norepinephrine 4 MG/254 ML IV.SOLN IVC SCH ×2 (06:15→14:27)
[2022-05-05] MEDS: Chlorhexidine Rinse 15 ML MOUTHWASH MM SCH ×2 (09:03→20:41)
[2022-05-05] MEDS: Furosemide 40 MG/4 ML VIAL IVP SCH ×2 (09:04→20:42)
[2022-05-05] MEDS: Gabapentin 400 MG CAPSULE PO SCH ×3 (09:04→20:41)
[2022-05-05] MEDS: *HR* Amiodarone 200 MG TABLET PO SCH ×2 (09:04→20:41)
[2022-05-05] MEDS: Aspirin 81 MG TAB.CHEW PO SCH (09:04)
[2022-05-05] MEDS: Insulin LISPRO 300 UNITS/3 ML VIAL SUBQ SCH ×7 (09:06→20:42)
[2022-05-05] MEDS: Insulin DETEMIR 100 UNIT/ML X5UNITS SUBQ SCH ×2 (09:07→20:42)
[2022-05-05] MEDS ORDERED: Iopamidol - 370 500 ML MLS IVP ONE (10:54)
[2022-05-05] MEDS: *HR* OxyCODONE/APAP 5/325 TABLET PO PRN ×2 (14:23→22:47)
[2022-05-05] MEDS: Isosorbide MONOnitrate (24 HR) 30 MG TAB.ER.24H PO SCH (14:26)
[2022-05-05] MEDS: Valsartan 160 MG TABLET PO SCH (14:27)
[2022-05-06 03:27] LABS: Hematocrit 25.2 % (37.5-50.1); Hemoglobin 7.9 g/dL (12.9-16.9); Mean Corpuscular HGB Conc 31.3 g/dL (31.6-35.5); Mean Corpuscular Hemoglobin 30.4 pg (28.0-33.3); Mean Corpuscular Volume 96.9 fL (83.0-100.0); Mean Platelet Volume 9.6 fL (9.4-12.4); Platelet Count 409 K/mcL (140-400); Red Cell Distribution Width 15.1 % (11.5-14.5); White Blood Count 13.3 K/mcL (4.3-11.1)
[2022-05-06 03:39] LABS: BUN/Creatinine Ratio 20 (6-26); Blood Urea Nitrogen 17 mg/dL (8-23); Calcium 8.6 mg/dL (8.6-10.3); Carbon Dioxide 29 mEq/L (23-29); Chloride 102 mEq/L (98-107); Glucose 251 mg/dL (70-105); Osmolality,Calculated 296 (280-300); Sodium 138 mEq/L (136-145); eGFR For African Americans > 60 (> 60); eGFR For Non-African Americans > 60 (> 60)
[2022-05-06] MEDS: *HR* Enoxaparin 40 MG/0.4 ML SYRINGE SQ SCH (06:10)
[2022-05-06] MEDS: Insulin LISPRO 300 UNITS/3 ML VIAL SUBQ SCH ×7 (09:30→21:45)
[2022-05-06] MEDS: Insulin DETEMIR 100 UNIT/ML X5UNITS SUBQ SCH ×2 (09:31→21:47)
[2022-05-06] MEDS: *HR* Amiodarone 200 MG TABLET PO SCH ×2 (09:31→21:42)
[2022-05-06] MEDS: Gabapentin 400 MG CAPSULE PO SCH ×3 (09:31→21:42)
[2022-05-06] MEDS: Furosemide 40 MG/4 ML VIAL IVP SCH ×2 (09:32→21:42)
[2022-05-06] MEDS: *HR* OxyCODONE/APAP 5/325 TABLET PO PRN (09:32)
[2022-05-06] MEDS: Isosorbide MONOnitrate (24 HR) 30 MG TAB.ER.24H PO SCH (09:32)
[2022-05-06] MEDS: Aspirin 81 MG TAB.CHEW PO SCH (09:32)
[2022-05-06] MEDS: Chlorhexidine Rinse 15 ML MOUTHWASH MM SCH ×2 (09:32→21:42)
[2022-05-06] MEDS: Valsartan 160 MG TABLET PO SCH (09:33)
[2022-05-06] MEDS: metroNIDAZOLE 500 MG TABLET PO SCH ×2 (14:19→21:42)
[2022-05-06] MEDS ORDERED: Cefepime HCl 2,000 MG in 0.9 % Sodium Chloride Mini Bag 100 ML IVPB SCH (16:00)
[2022-05-06] MEDS: Cefepime HCl 2,000 MG in 0.9 % Sodium Chloride 10 ML IVP SCH (17:22)
[2022-05-06] MEDS: Vancomycin 2,000 MG/520 ML IV.SOLN IVPB SCH (17:24)
[2022-05-06 18:07] LABS: Basophils # 0.1 K/mcL (0.0-0.2); Basophils % 0.4 %; Eosinophils # 0.2 K/mcL (0.0-0.6); Eosinophils % 1.4 %; Hematocrit 25.3 % (37.5-50.1); Hemoglobin 8.2 g/dL (12.9-16.9); Immature Granulocytes % 1.6 % (0-4); Lymphocytes # 2.2 K/mcL (0.6-4.6); Lymphocytes % 15.3 %; Mean Corpuscular HGB Conc 32.4 g/dL (31.6-35.5); Mean Corpuscular Hemoglobin 31.3 pg (28.0-33.3); Mean Corpuscular Volume 96.6 fL (83.0-100.0); Mean Platelet Volume 9.6 fL (9.4-12.4); Monocytes # 1.1 K/mcL (0.0-1.3); Monocytes % 7.7 %; Neutrophils # 10.4 K/mcL (1.6-8.9); Nucleated Red Blood Cells 0.1 /100 WBC (0); Platelet Count 406 K/mcL (140-400); Red Blood Count 2.62 M/mcL (4.19-5.50); Red Cell Distribution Width 15.2 % (11.5-14.5); Segmented Neutrophils % 73.6 %; White Blood Count 14.2 K/mcL (4.3-11.1)
[2022-05-06 18:16] LABS: INR 1.3; Prothrombin Time 14.4 Seconds (9.4-12.1)
[2022-05-06 18:18] LABS: Activated Partial Thrombo Time 30.6 Seconds (26.0-36.0)
[2022-05-06 18:27] LABS: BUN/Creatinine Ratio 21 (6-26); Blood Urea Nitrogen 19 mg/dL (8-23); Calcium 8.6 mg/dL (8.6-10.3); Carbon Dioxide 29 mEq/L (23-29); Chloride 101 mEq/L (98-107); Glucose 255 mg/dL (70-105); Osmolality,Calculated 293 (280-300); Sodium 136 mEq/L (136-145); eGFR For African Americans > 60 (> 60); eGFR For Non-African Americans > 60 (> 60)
[2022-05-06] MEDS ORDERED: Chlorhexidine Rinse 15 ML MOUTHWASH MM SCH (21:00)
[2022-05-07] MEDS: Cefepime HCl 2,000 MG in 0.9 % Sodium Chloride 10 ML IVP SCH ×3 (00:23→16:01)
[2022-05-07] MEDS: Vancomycin 2,000 MG/520 ML IV.SOLN IVPB SCH ×2 (03:30→16:02)
[2022-05-07] MEDS: Aspirin 81 MG TAB.CHEW PO SCH (04:55)
[2022-05-07 05:25] LABS: Hematocrit 24.3 % (37.5-50.1); Hemoglobin 7.7 g/dL (12.9-16.9); Mean Corpuscular HGB Conc 31.7 g/dL (31.6-35.5); Mean Platelet Volume 9.6 fL (9.4-12.4); Platelet Count 397 K/mcL (140-400); Red Blood Count 2.48 M/mcL (4.19-5.50); Red Cell Distribution Width 15.2 % (11.5-14.5); White Blood Count 13.7 K/mcL (4.3-11.1)
[2022-05-07 05:40] LABS: BUN/Creatinine Ratio 20 (6-26); Blood Urea Nitrogen 18 mg/dL (8-23); C-Reactive Protein 59 mg/L (Less than 10); Calcium 8.5 mg/dL (8.6-10.3); Carbon Dioxide 29 mEq/L (23-29); Chloride 103 mEq/L (98-107); Glucose 177 mg/dL (70-105); Magnesium 1.9 mg/dL (1.6-2.6); Osmolality,Calculated 290 (280-300); Potassium 4.1 mEq/L (3.5-5.1); Sodium 137 mEq/L (136-145); eGFR For African Americans > 60 (> 60); eGFR For Non-African Americans > 60 (> 60)
[2022-05-07] MEDS: *HR* Enoxaparin 40 MG/0.4 ML SYRINGE SQ SCH (06:00)
[2022-05-07] MEDS ORDERED: Aspirin 81 MG TAB.CHEW PO ONE (06:00)
[2022-05-07] MEDS ORDERED: Clindamycin 900 MG/50 ML 900 MG/50 ML IV.SOLN IVPB ONE (06:00)
[2022-05-07] MEDS ORDERED: Vancomycin 1,000 MG VIAL ONE (06:34)
[2022-05-07] MEDS ORDERED: *HR* FentaNYL (PF) 250 MCG/5 ML VIAL ONE (06:44)
[2022-05-07] MEDS ORDERED: *HR* Rocuronium Bromide 50 MG/5 ML VIAL ONE (06:44)
[2022-05-07] MEDS ORDERED: Ondansetron 4 MG/2 ML VIAL ONE (06:44)
[2022-05-07] MEDS ORDERED: Lidocaine 2% Syringe 100 MG/5 ML ONE (06:44)
[2022-05-07] MEDS ORDERED: *HR* Etomidate 20 MG/10 ML AMPUL IVP ONE (06:45)
[2022-05-07] MEDS ORDERED: Albumin Human 5% 12.5 GM/250 ML IV.SOLN ONE (07:29)
[2022-05-07] MEDS: Insulin LISPRO 300 UNITS/3 ML VIAL SUBQ SCH ×2 (07:30→08:00)
[2022-05-07] MEDS ORDERED: Ondansetron 4 MG/2 ML VIAL IVP PRN (07:35)
[2022-05-07] MEDS ORDERED: *HR* OxyCODONE Immed Rel 5 MG TABLET PO PRN (07:35)
[2022-05-07] MEDS ORDERED: *HR* FentaNYL (PF) 100 MCG/2 ML VIAL IVP PRN (07:35)
[2022-05-07] MEDS ORDERED: Albuterol 2.5 MG/3 ML NEBULIZER IH PRN (07:35)
[2022-05-07] MEDS: *HR* HYDROmorphone PF 0.5 MG/0.5 ML SYRINGE IVP PRN ×4 (08:20→08:45)
[2022-05-07] MEDS: Gabapentin 400 MG CAPSULE PO SCH ×3 (10:44→20:22)
[2022-05-07] MEDS: Isosorbide MONOnitrate (24 HR) 30 MG TAB.ER.24H PO SCH (10:45)
[2022-05-07] MEDS: metroNIDAZOLE 500 MG TABLET PO SCH ×3 (10:45→20:22)
[2022-05-07] MEDS: Valsartan 160 MG TABLET PO SCH (10:46)
[2022-05-07] MEDS: Furosemide 40 MG/4 ML VIAL IVP SCH (10:46)
[2022-05-07] MEDS: Chlorhexidine Rinse 15 ML MOUTHWASH MM SCH ×2 (10:51→20:22)
[2022-05-07] MEDS: *HR* Amiodarone 200 MG TABLET PO SCH ×2 (10:51→20:22)
[2022-05-07] MEDS: Insulin DETEMIR 100 UNIT/ML X5UNITS SUBQ SCH (10:51)
[2022-05-07] MEDS ORDERED: *HR* Dextrose 50 % in Water (Syg) 50 ML SYRINGE IVP PRN (11:16)
[2022-05-07] MEDS ORDERED: Acetylcysteine 10% 2 ML INHSOL IH SCH (12:00)
[2022-05-07] MEDS: Bumetanide 1 MG/4 ML VIAL IVP SCH ×2 (12:56→19:19)
[2022-05-07] MEDS ORDERED: Lidocaine -MPF 1% 5 ML AMPUL INFILT ONE (13:04)
[2022-05-07] MEDS: Ipratropium/Albuterol Neb 3 ML IH PRN ×2 (15:24→21:24)
[2022-05-07] MEDS: Acetylcysteine 10% 2 ML INHSOL IH SCH ×2 (15:24→21:24)
[2022-05-07 16:07] LABS: RBC,Pleural Fluid 145000 RBC/mcL
[2022-05-07 18:18] LABS: Appearance of Pleural Fl Bloody (Clear); Basophils,Pleural Fluid 0 %; Eosinophils,Pleural Fluid 0 %; Monocytes,Pleural Fluid 0 %
[2022-05-08] MEDS: Cefepime HCl 2,000 MG in 0.9 % Sodium Chloride 10 ML IVP SCH (01:18)
[2022-05-08] MEDS ORDERED: 0.9 % Sodium Chloride 250 ML ONE (03:11)
[2022-05-08] MEDS: Acetylcysteine 10% 2 ML INHSOL IH SCH ×4 (03:46→21:56)
[2022-05-08] MEDS: Ipratropium/Albuterol Neb 3 ML IH PRN ×4 (03:46→21:56)
[2022-05-08] MEDS: *HR* OxyCODONE/APAP 5/325 TABLET PO PRN ×4 (04:30→22:52)
[2022-05-08] MEDS: Vancomycin 2,000 MG/520 ML IV.SOLN IVPB SCH (04:38)
[2022-05-08 05:41] LABS: Basophils % 0.2 %; Eosinophils % 0.2 %; Hematocrit 22.9 % (37.5-50.1); Hemoglobin 7.3 g/dL (12.9-16.9); Lymphocytes # 2.4 K/mcL (0.6-4.6); Lymphocytes % 12.8 %; Mean Corpuscular HGB Conc 31.9 g/dL (31.6-35.5); Mean Corpuscular Hemoglobin 31.1 pg (28.0-33.3); Mean Corpuscular Volume 97.4 fL (83.0-100.0); Mean Platelet Volume 9.9 fL (9.4-12.4); Monocytes # 0.9 K/mcL (0.0-1.3); Monocytes % 5.1 %; Neutrophils # 14.9 K/mcL (1.6-8.9); Platelet Count 410 K/mcL (140-400); Red Blood Count 2.35 M/mcL (4.19-5.50); Red Cell Distribution Width 15.1 % (11.5-14.5); Segmented Neutrophils % 80.7 %; White Blood Count 18.4 K/mcL (4.3-11.1)
[2022-05-08 06:38] LABS: BUN/Creatinine Ratio 25 (6-26); Blood Urea Nitrogen 33 mg/dL (8-23); Calcium 8.4 mg/dL (8.6-10.3); Carbon Dioxide 28 mEq/L (23-29); Chloride 102 mEq/L (98-107); Glucose 214 mg/dL (70-105); Magnesium 1.9 mg/dL (1.6-2.6); Osmolality,Calculated 298 (280-300); Potassium 4.1 mEq/L (3.5-5.1); Sodium 137 mEq/L (136-145); eGFR For African Americans > 60 (> 60); eGFR For Non-African Americans 53 (> 60)
[2022-05-08] MEDS ORDERED: Bumetanide 1 MG/4 ML VIAL IVP SCH (09:00)
[2022-05-08] MEDS: Isosorbide MONOnitrate (24 HR) 30 MG TAB.ER.24H PO SCH (09:21)
[2022-05-08] MEDS: metroNIDAZOLE 500 MG TABLET PO SCH ×3 (09:21→19:40)
[2022-05-08] MEDS: Aspirin 81 MG TAB.CHEW PO SCH (09:21)
[2022-05-08] MEDS: Valsartan 160 MG TABLET PO SCH (09:21)
[2022-05-08] MEDS: Gabapentin 400 MG CAPSULE PO SCH ×3 (09:22→19:40)
[2022-05-08] MEDS: *HR* Amiodarone 200 MG TABLET PO SCH ×2 (09:22→19:40)
[2022-05-08] MEDS: *HR* Enoxaparin 40 MG/0.4 ML SYRINGE SQ SCH (09:24)
[2022-05-08] MEDS: Chlorhexidine Rinse 15 ML MOUTHWASH MM SCH ×2 (09:34→19:41)
[2022-05-08 12:56] LABS: Folate 9.3 ng/mL (3.0-16.0)
[2022-05-08] MEDS ORDERED: Iron Sucrose Complex 400 MG in 0.9 % Sodium Chloride 250 ML IVPB ONE (14:02)
[2022-05-09] MEDS: Cefepime HCl 2,000 MG in 0.9 % Sodium Chloride 10 ML IVP SCH ×3 (00:19→22:17)
[2022-05-09] MEDS: Ipratropium/Albuterol Neb 3 ML IH PRN ×4 (04:11→23:04)
[2022-05-09] MEDS: Acetylcysteine 10% 2 ML INHSOL IH SCH ×4 (04:12→23:04)
[2022-05-09 04:57] LABS: Hemoglobin 7.7 g/dL (12.9-16.9); Mean Corpuscular HGB Conc 30.8 g/dL (31.6-35.5); Mean Corpuscular Hemoglobin 30.3 pg (28.0-33.3); Mean Corpuscular Volume 98.4 fL (83.0-100.0); Mean Platelet Volume 9.8 fL (9.4-12.4); Platelet Count 448 K/mcL (140-400); Red Blood Count 2.54 M/mcL (4.19-5.50); Red Cell Distribution Width 15.5 % (11.5-14.5); White Blood Count 14.6 K/mcL (4.3-11.1)
[2022-05-09 05:07] LABS: BUN/Creatinine Ratio 29 (6-26); Blood Urea Nitrogen 33 mg/dL (8-23); Calcium 8.5 mg/dL (8.6-10.3); Carbon Dioxide 27 mEq/L (23-29); Chloride 104 mEq/L (98-107); Glucose 117 mg/dL (70-105); Osmolality,Calculated 290 (280-300); Potassium 4.5 mEq/L (3.5-5.1); Sodium 136 mEq/L (136-145); Vancomycin,Trough 15 mcg/mL (5-10); eGFR For African Americans > 60 (> 60); eGFR For Non-African Americans > 60 (> 60)
[2022-05-09] MEDS: Vancomycin 2,000 MG/520 ML IV.SOLN IVPB SCH (05:21)
[2022-05-09] MEDS: *HR* Enoxaparin 40 MG/0.4 ML SYRINGE SQ SCH (05:28)
[2022-05-09] MEDS: *HR* OxyCODONE/APAP 5/325 TABLET PO PRN ×2 (05:28→17:17)
[2022-05-09] MEDS: Chlorhexidine Rinse 15 ML MOUTHWASH MM SCH ×2 (09:03→20:43)
[2022-05-09] MEDS: Aspirin 81 MG TAB.CHEW PO SCH (09:03)
[2022-05-09] MEDS: metroNIDAZOLE 500 MG TABLET PO SCH ×3 (09:03→20:42)
[2022-05-09] MEDS: Isosorbide MONOnitrate (24 HR) 30 MG TAB.ER.24H PO SCH (09:03)
[2022-05-09] MEDS: Gabapentin 400 MG CAPSULE PO SCH ×3 (09:03→22:17)
[2022-05-09] MEDS: Valsartan 160 MG TABLET PO SCH (09:03)
[2022-05-09] MEDS: *HR* Amiodarone 200 MG TABLET PO SCH ×2 (09:03→20:42)
[2022-05-09] MEDS ORDERED: Heparin 1,000 UNITS/500 mL 500 ML ONE (14:26)
[2022-05-09] MEDS: *HR* LORazepam 0.5 MG TABLET PO PRN (17:17)
[2022-05-09] MEDS: Bumetanide 1 MG/4 ML VIAL IVP SCH (17:21)
[2022-05-10] MEDS: Ipratropium/Albuterol Neb 3 ML IH PRN ×3 (03:13→22:58)
[2022-05-10] MEDS: Acetylcysteine 10% 2 ML INHSOL IH SCH ×4 (03:13→22:58)
[2022-05-10] MEDS: Vancomycin 2,000 MG/520 ML IV.SOLN IVPB SCH (05:30)
[2022-05-10] MEDS: *HR* Enoxaparin 40 MG/0.4 ML SYRINGE SQ SCH (05:31)
[2022-05-10] MEDS: Valsartan 160 MG TABLET PO SCH (09:04)
[2022-05-10] MEDS: metroNIDAZOLE 500 MG TABLET PO SCH (09:04)
[2022-05-10] MEDS: Isosorbide MONOnitrate (24 HR) 30 MG TAB.ER.24H PO SCH (09:04)
[2022-05-10] MEDS: *HR* OxyCODONE/APAP 5/325 TABLET PO PRN (09:04)
[2022-05-10] MEDS: Gabapentin 400 MG CAPSULE PO SCH ×3 (09:05→20:07)
[2022-05-10] MEDS: Aspirin 81 MG TAB.CHEW PO SCH (09:05)
[2022-05-10] MEDS: *HR* Amiodarone 200 MG TABLET PO SCH ×2 (09:05→20:07)
[2022-05-10] MEDS: Chlorhexidine Rinse 15 ML MOUTHWASH MM SCH (09:08)
[2022-05-10 09:09] LABS: Hematocrit 26.2 % (37.5-50.1); Hemoglobin 8.2 g/dL (12.9-16.9); Mean Corpuscular HGB Conc 31.3 g/dL (31.6-35.5); Mean Corpuscular Hemoglobin 30.8 pg (28.0-33.3); Mean Corpuscular Volume 98.5 fL (83.0-100.0); Mean Platelet Volume 9.5 fL (9.4-12.4); Platelet Count 446 K/mcL (140-400); Red Blood Count 2.66 M/mcL (4.19-5.50); Red Cell Distribution Width 15.8 % (11.5-14.5); White Blood Count 15.3 K/mcL (4.3-11.1)
[2022-05-10] MEDS: Bumetanide 1 MG/4 ML VIAL IVP SCH (09:10)
[2022-05-10 09:16] LABS: INR 1.3; Prothrombin Time 14.5 Seconds (9.4-12.1)
[2022-05-10 09:18] LABS: Activated Partial Thrombo Time 32.6 Seconds (26.0-36.0)
[2022-05-10 09:24] LABS: BUN/Creatinine Ratio 28 (6-26); Blood Urea Nitrogen 30 mg/dL (8-23); Calcium 7.5 mg/dL (8.6-10.3); Carbon Dioxide 26 mEq/L (23-29); Chloride 107 mEq/L (98-107); Glucose 138 mg/dL (70-105); Magnesium 2.1 mg/dL (1.6-2.6); Osmolality,Calculated 294 (280-300); Potassium 4.1 mEq/L (3.5-5.1); Sodium 138 mEq/L (136-145); eGFR For African Americans > 60 (> 60); eGFR For Non-African Americans > 60 (> 60)
[2022-05-10] MEDS ORDERED: Albumin Human 5% 12.5 GM/250 ML IV.SOLN IVC SCH (13:20)
[2022-05-10] MEDS ORDERED: Albumin Human 5% 12.5 GM/250 ML IV.SOLN ONE ×2 (13:23→13:32)
[2022-05-10] MEDS ORDERED: Ringers Solution, Lactated 1,000 ML IVC SCH (13:30)
[2022-05-10] MEDS ORDERED: Vancomycin 1,000 MG VIAL ONE (14:01)
[2022-05-10] MEDS ORDERED: *HR* Propofol 200 MG/20 ML VIAL IVP ONE (14:14)
[2022-05-10] MEDS ORDERED: Lidocaine 2% Syringe 100 MG/5 ML ONE (14:15)
[2022-05-10] MEDS ORDERED: *HR* FentaNYL (PF) 250 MCG/5 ML VIAL ONE (14:15)
[2022-05-10] MEDS ORDERED: Ondansetron 4 MG/2 ML VIAL ONE (14:15)
[2022-05-10] MEDS ORDERED: *HR* Rocuronium Bromide 50 MG/5 ML VIAL ONE (14:55)
[2022-05-10] MEDS ORDERED: Ondansetron 4 MG/2 ML VIAL IVP PRN (15:11)
[2022-05-10] MEDS ORDERED: *HR* OxyCODONE Immed Rel 5 MG TABLET PO PRN (15:11)
[2022-05-10] MEDS ORDERED: Albuterol 2.5 MG/3 ML NEBULIZER IH PRN (15:11)
[2022-05-10] MEDS: *HR* HYDROmorphone PF 0.5 MG/0.5 ML SYRINGE IVP PRN ×4 (16:05→16:27)
[2022-05-11] MEDS: Acetylcysteine 10% 2 ML INHSOL IH SCH ×4 (04:01→20:21)
[2022-05-11] MEDS: Ipratropium/Albuterol Neb 3 ML IH PRN ×4 (04:01→20:21)
[2022-05-11 04:30] LABS: Hematocrit 22.5 % (37.5-50.1); Hemoglobin 6.9 g/dL (12.9-16.9); Mean Corpuscular HGB Conc 30.7 g/dL (31.6-35.5); Mean Corpuscular Hemoglobin 30.4 pg (28.0-33.3); Mean Corpuscular Volume 99.1 fL (83.0-100.0); Mean Platelet Volume 9.5 fL (9.4-12.4); Platelet Count 447 K/mcL (140-400); Red Blood Count 2.27 M/mcL (4.19-5.50); White Blood Count 14.8 K/mcL (4.3-11.1)
[2022-05-11 04:48] LABS: BUN/Creatinine Ratio 30 (6-26); Blood Urea Nitrogen 33 mg/dL (8-23); Calcium 8.7 mg/dL (8.6-10.3); Carbon Dioxide 26 mEq/L (23-29); Chloride 105 mEq/L (98-107); Glucose 135 mg/dL (70-105); Magnesium 2.4 mg/dL (1.6-2.6); Osmolality,Calculated 293 (280-300); Potassium 4.6 mEq/L (3.5-5.1); Sodium 137 mEq/L (136-145); eGFR For African Americans > 60 (> 60); eGFR For Non-African Americans > 60 (> 60)
[2022-05-11] MEDS: Vancomycin 2,000 MG/520 ML IV.SOLN IVPB SCH (05:42)
[2022-05-11] MEDS: *HR* Enoxaparin 40 MG/0.4 ML SYRINGE SQ SCH (05:43)
[2022-05-11] MEDS ORDERED: *HR* Dextrose 50 % in Water (Syg) 50 ML SYRINGE IVP PRN (10:26)
[2022-05-11] MEDS ORDERED: Dextrose Gel 15 GM/37.5 ML TUBE PO PRN ×2 (10:26)
[2022-05-11] MEDS ORDERED: D5% in Water 1,000 ML IVC PRN (10:26)
[2022-05-11] MEDS: Insulin LISPRO 300 UNITS/3 ML VIAL SUBQ SCH ×3 (12:09→20:17)
[2022-05-11] MEDS: *HR* OxyCODONE/APAP 5/325 TABLET PO PRN ×2 (12:15→17:17)
[2022-05-11] MEDS ORDERED: Insulin DETEMIR 100 UNIT/ML X5UNITS SUBQ ONE (13:12)
[2022-05-11] MEDS: Morphine Sulfate Oral CONC 10 MG/0.5 ML ORAL.SYG PO PRN (14:51)
[2022-05-11] MEDS: Gabapentin 400 MG CAPSULE PO SCH ×2 (14:51→20:17)
[2022-05-11] MEDS: Ketorolac 30 MG/ML VIAL IVP SCH ×2 (18:34→23:51)
[2022-05-11 18:43] LABS: Hematocrit 25.7 % (37.5-50.1); Hemoglobin 8.1 g/dL (12.9-16.9)
[2022-05-11] MEDS: *HR* Amiodarone 200 MG TABLET PO SCH (20:17)
[2022-05-11] MEDS: Insulin DETEMIR 100 UNIT/ML X5UNITS SUBQ SCH (20:18)
[2022-05-12] MEDS ORDERED: Ketorolac 30 MG/ML VIAL IVP SCH
[2022-05-12 03:57] LABS: Hematocrit 26.1 % (37.5-50.1); Hemoglobin 8.1 g/dL (12.9-16.9); Mean Platelet Volume 9.4 fL (9.4-12.4); Platelet Count 442 K/mcL (140-400); Red Blood Count 2.61 M/mcL (4.19-5.50); Red Cell Distribution Width 16.9 % (11.5-14.5); White Blood Count 11.6 K/mcL (4.3-11.1)
[2022-05-12] MEDS: Acetylcysteine 10% 2 ML INHSOL IH SCH ×5 (04:07→21:21)
[2022-05-12] MEDS: Ipratropium/Albuterol Neb 3 ML IH PRN ×4 (04:07→20:43)
[2022-05-12 04:18] LABS: BUN/Creatinine Ratio 30 (6-26); Blood Urea Nitrogen 40 mg/dL (8-23); Calcium 8.6 mg/dL (8.6-10.3); Carbon Dioxide 25 mEq/L (23-29); Chloride 106 mEq/L (98-107); Glucose 182 mg/dL (70-105); Magnesium 2.3 mg/dL (1.6-2.6); Osmolality,Calculated 298 (280-300); Potassium 4.6 mEq/L (3.5-5.1); Sodium 137 mEq/L (136-145); Vancomycin,Trough 15 mcg/mL (5-10); eGFR For African Americans > 60 (> 60); eGFR For Non-African Americans 52 (> 60)
[2022-05-12] MEDS: Vancomycin 2,000 MG/520 ML IV.SOLN IVPB SCH (05:11)
[2022-05-12] MEDS: *HR* Enoxaparin 40 MG/0.4 ML SYRINGE SQ SCH (05:12)
[2022-05-12] MEDS: Insulin LISPRO 300 UNITS/3 ML VIAL SUBQ SCH ×4 (08:08→20:14)
[2022-05-12] MEDS: Insulin DETEMIR 100 UNIT/ML X5UNITS SUBQ SCH ×2 (08:08→20:14)
[2022-05-12] MEDS: Aspirin 81 MG TAB.CHEW PO SCH (08:09)
[2022-05-12] MEDS: *HR* OxyCODONE/APAP 5/325 TABLET PO PRN ×2 (08:09→15:21)
[2022-05-12] MEDS: Valsartan 160 MG TABLET PO SCH (08:09)
[2022-05-12] MEDS: Gabapentin 400 MG CAPSULE PO SCH ×3 (08:09→20:13)
[2022-05-12] MEDS: Isosorbide MONOnitrate (24 HR) 30 MG TAB.ER.24H PO SCH (08:09)
[2022-05-12] MEDS: *HR* Amiodarone 200 MG TABLET PO SCH ×2 (08:09→20:13)
[2022-05-12] MEDS: polyethylene glycoL 3350 17 GM POWD.PACK PO SCH (10:10)
[2022-05-13] MEDS: Vancomycin 2,000 MG/520 ML IV.SOLN IVPB SCH (05:44)
[2022-05-13] MEDS: *HR* Enoxaparin 40 MG/0.4 ML SYRINGE SQ SCH (05:44)
[2022-05-13 06:03] LABS: Basophils # 0.1 K/mcL (0.0-0.2); Basophils % 0.5 %; Eosinophils # 0.2 K/mcL (0.0-0.6); Hematocrit 27.4 % (37.5-50.1); Hemoglobin 8.5 g/dL (12.9-16.9); Lymphocytes # 1.8 K/mcL (0.6-4.6); Lymphocytes % 16.5 %; Mean Platelet Volume 9.2 fL (9.4-12.4); Monocytes # 0.9 K/mcL (0.0-1.3); Neutrophils # 7.9 K/mcL (1.6-8.9); Platelet Count 432 K/mcL (140-400); Red Blood Count 2.74 M/mcL (4.19-5.50); Red Cell Distribution Width 16.8 % (11.5-14.5)
[2022-05-13 06:26] LABS: BUN/Creatinine Ratio 32 (6-26); Blood Urea Nitrogen 37 mg/dL (8-23); Calcium 8.6 mg/dL (8.6-10.3); Carbon Dioxide 27 mEq/L (23-29); Chloride 106 mEq/L (98-107); Glucose 191 mg/dL (70-105); Magnesium 2.2 mg/dL (1.6-2.6); Osmolality,Calculated 296 (280-300); Potassium 4.9 mEq/L (3.5-5.1); Sodium 136 mEq/L (136-145); eGFR For African Americans > 60 (> 60); eGFR For Non-African Americans > 60 (> 60)
[2022-05-13] MEDS: Insulin LISPRO 300 UNITS/3 ML VIAL SUBQ SCH ×4 (08:15→21:38)
[2022-05-13] MEDS: Insulin DETEMIR 100 UNIT/ML X5UNITS SUBQ SCH ×2 (08:15→21:36)
[2022-05-13] MEDS: Gabapentin 400 MG CAPSULE PO SCH ×3 (08:16→21:36)
[2022-05-13] MEDS: Isosorbide MONOnitrate (24 HR) 30 MG TAB.ER.24H PO SCH (08:16)
[2022-05-13] MEDS: Aspirin 81 MG TAB.CHEW PO SCH (08:16)
[2022-05-13] MEDS: polyethylene glycoL 3350 17 GM POWD.PACK PO SCH (08:17)
[2022-05-13] MEDS: *HR* Amiodarone 200 MG TABLET PO SCH ×2 (08:17→21:36)
[2022-05-13] MEDS: Valsartan 160 MG TABLET PO SCH (09:07)
[2022-05-13] MEDS: Bumetanide 1 MG/4 ML VIAL IVP SCH (09:36)
[2022-05-13] MEDS: Acetylcysteine 10% 2 ML INHSOL IH SCH ×4 (10:23→22:22)
[2022-05-13] MEDS: Ipratropium/Albuterol Neb 3 ML IH PRN ×3 (10:23→22:20)
[2022-05-13] MEDS: *HR* OxyCODONE/APAP 5/325 TABLET PO PRN (12:00)
[2022-05-13] MEDS: Morphine Sulfate Oral CONC 10 MG/0.5 ML ORAL.SYG PO PRN (22:34)
[2022-05-14] MEDS: *HR* OxyCODONE/APAP 5/325 TABLET PO PRN ×3 (02:45→22:01)
[2022-05-14] MEDS: Acetylcysteine 10% 2 ML INHSOL IH SCH ×4 (04:00→22:47)
[2022-05-14] MEDS: Ipratropium/Albuterol Neb 3 ML IH PRN ×4 (04:00→22:47)
[2022-05-14] MEDS: *HR* Enoxaparin 40 MG/0.4 ML SYRINGE SQ SCH (04:43)
[2022-05-14 05:33] LABS: Basophils # 0.1 K/mcL (0.0-0.2); Basophils % 0.6 %; Eosinophils # 0.2 K/mcL (0.0-0.6); Eosinophils % 1.9 %; Hematocrit 28.1 % (37.5-50.1); Hemoglobin 8.5 g/dL (12.9-16.9); Immature Granulocytes % 0.8 % (0-4); Lymphocytes # 1.8 K/mcL (0.6-4.6); Lymphocytes % 16.5 %; Mean Corpuscular HGB Conc 30.2 g/dL (31.6-35.5); Mean Corpuscular Hemoglobin 30.1 pg (28.0-33.3); Mean Corpuscular Volume 99.6 fL (83.0-100.0); Mean Platelet Volume 9.2 fL (9.4-12.4); Monocytes # 0.9 K/mcL (0.0-1.3); Monocytes % 8.6 %; Neutrophils # 7.7 K/mcL (1.6-8.9); Platelet Count 442 K/mcL (140-400); Red Blood Count 2.82 M/mcL (4.19-5.50); Red Cell Distribution Width 16.4 % (11.5-14.5); Segmented Neutrophils % 71.6 %; White Blood Count 10.8 K/mcL (4.3-11.1)
[2022-05-14 05:51] LABS: BUN/Creatinine Ratio 26 (6-26); Blood Urea Nitrogen 29 mg/dL (8-23); Carbon Dioxide 26 mEq/L (23-29); Chloride 105 mEq/L (98-107); Glucose 168 mg/dL (70-105); Osmolality,Calculated 294 (280-300); Potassium 4.6 mEq/L (3.5-5.1); Sodium 137 mEq/L (136-145); eGFR For African Americans > 60 (> 60); eGFR For Non-African Americans > 60 (> 60)
[2022-05-14] MEDS: Vancomycin 2,000 MG/520 ML IV.SOLN IVPB SCH (07:14)
[2022-05-14] MEDS: Aspirin 81 MG TAB.CHEW PO SCH (08:19)
[2022-05-14] MEDS: Gabapentin 400 MG CAPSULE PO SCH ×3 (08:19→21:47)
[2022-05-14] MEDS: Valsartan 160 MG TABLET PO SCH (08:19)
[2022-05-14] MEDS: Isosorbide MONOnitrate (24 HR) 30 MG TAB.ER.24H PO SCH (08:20)
[2022-05-14] MEDS: Bumetanide 1 MG/4 ML VIAL IVP SCH (08:20)
[2022-05-14] MEDS: Insulin LISPRO 300 UNITS/3 ML VIAL SUBQ SCH ×4 (08:20→21:47)
[2022-05-14] MEDS: *HR* Amiodarone 200 MG TABLET PO SCH ×2 (08:20→21:47)
[2022-05-14] MEDS: Insulin DETEMIR 100 UNIT/ML X5UNITS SUBQ SCH ×2 (08:20→21:47)
[2022-05-14] MEDS: polyethylene glycoL 3350 17 GM POWD.PACK PO SCH (08:22)
[2022-05-15] MEDS: Ipratropium/Albuterol Neb 3 ML IH PRN ×3 (03:35→21:38)
[2022-05-15] MEDS: Acetylcysteine 10% 2 ML INHSOL IH SCH ×4 (03:35→21:38)
[2022-05-15 04:02] LABS: Basophils # 0.1 K/mcL (0.0-0.2); Basophils % 0.6 %; Eosinophils # 0.2 K/mcL (0.0-0.6); Eosinophils % 2.6 %; Hematocrit 27.7 % (37.5-50.1); Hemoglobin 8.6 g/dL (12.9-16.9); Immature Granulocytes % 0.8 % (0-4); Lymphocytes # 1.9 K/mcL (0.6-4.6); Lymphocytes % 21.3 %; Mean Corpuscular Hemoglobin 30.9 pg (28.0-33.3); Mean Corpuscular Volume 99.6 fL (83.0-100.0); Mean Platelet Volume 9.2 fL (9.4-12.4); Monocytes # 0.8 K/mcL (0.0-1.3); Monocytes % 8.9 %; Neutrophils # 5.9 K/mcL (1.6-8.9); Platelet Count 408 K/mcL (140-400); Red Blood Count 2.78 M/mcL (4.19-5.50); Red Cell Distribution Width 16.3 % (11.5-14.5); Segmented Neutrophils % 65.8 %
[2022-05-15 04:21] LABS: BUN/Creatinine Ratio 24 (6-26); Blood Urea Nitrogen 23 mg/dL (8-23); Calcium 8.9 mg/dL (8.6-10.3); Carbon Dioxide 27 mEq/L (23-29); Chloride 105 mEq/L (98-107); Glucose 169 mg/dL (70-105); Osmolality,Calculated 292 (280-300); Potassium 4.4 mEq/L (3.5-5.1); Sodium 137 mEq/L (136-145); eGFR For African Americans > 60 (> 60); eGFR For Non-African Americans > 60 (> 60)
[2022-05-15] MEDS: Vancomycin 2,000 MG/520 ML IV.SOLN IVPB SCH (05:39)
[2022-05-15] MEDS: *HR* Enoxaparin 40 MG/0.4 ML SYRINGE SQ SCH (05:39)
[2022-05-15] MEDS: polyethylene glycoL 3350 17 GM POWD.PACK PO SCH (08:05)
[2022-05-15] MEDS: *HR* Amiodarone 200 MG TABLET PO SCH ×2 (08:06→21:18)
[2022-05-15] MEDS: Aspirin 81 MG TAB.CHEW PO SCH (08:07)
[2022-05-15] MEDS: Valsartan 160 MG TABLET PO SCH (08:07)
[2022-05-15] MEDS: Isosorbide MONOnitrate (24 HR) 30 MG TAB.ER.24H PO SCH (08:07)
[2022-05-15] MEDS: Gabapentin 400 MG CAPSULE PO SCH ×3 (08:07→21:18)
[2022-05-15] MEDS: *HR* OxyCODONE/APAP 5/325 TABLET PO PRN ×2 (08:10→14:40)
[2022-05-15] MEDS: Bumetanide 1 MG/4 ML VIAL IVP SCH (08:10)
[2022-05-15] MEDS: Insulin LISPRO 300 UNITS/3 ML VIAL SUBQ SCH ×4 (08:12→21:19)
[2022-05-15] MEDS: Insulin DETEMIR 100 UNIT/ML X5UNITS SUBQ SCH ×2 (08:16→21:18)
[2022-05-15] MEDS: Morphine Sulfate Oral CONC 10 MG/0.5 ML ORAL.SYG PO PRN (13:29)
[2022-05-15] MEDS: Ketorolac 30 MG/ML VIAL IVP SCH ×2 (16:45→21:18)
[2022-05-15] MEDS: Furosemide 40 MG TABLET PO SCH (17:35)
[2022-05-16] MEDS: Ipratropium/Albuterol Neb 3 ML IH PRN ×4 (03:57→22:46)
[2022-05-16] MEDS: Acetylcysteine 10% 2 ML INHSOL IH SCH ×4 (03:57→22:46)
[2022-05-16] MEDS: *HR* OxyCODONE/APAP 5/325 TABLET PO PRN ×2 (04:15→11:19)
[2022-05-16 04:41] LABS: Basophils # 0.1 K/mcL (0.0-0.2); Basophils % 0.6 %; Eosinophils # 0.3 K/mcL (0.0-0.6); Eosinophils % 3.7 %; Hematocrit 28.9 % (37.5-50.1); Hemoglobin 8.7 g/dL (12.9-16.9); Immature Granulocytes % 0.9 % (0-4); Lymphocytes # 1.9 K/mcL (0.6-4.6); Lymphocytes % 23.9 %; Mean Corpuscular HGB Conc 30.1 g/dL (31.6-35.5); Mean Corpuscular Hemoglobin 30.3 pg (28.0-33.3); Mean Corpuscular Volume 100.7 fL (83.0-100.0); Mean Platelet Volume 9.2 fL (9.4-12.4); Monocytes # 0.7 K/mcL (0.0-1.3); Monocytes % 9.1 %; Neutrophils # 4.8 K/mcL (1.6-8.9); Platelet Count 394 K/mcL (140-400); Red Blood Count 2.87 M/mcL (4.19-5.50); Red Cell Distribution Width 16.3 % (11.5-14.5); Segmented Neutrophils % 61.8 %; White Blood Count 7.8 K/mcL (4.3-11.1)
[2022-05-16 04:49] LABS: BUN/Creatinine Ratio 26 (6-26); Blood Urea Nitrogen 28 mg/dL (8-23); Calcium 8.7 mg/dL (8.6-10.3); Carbon Dioxide 26 mEq/L (23-29); Chloride 104 mEq/L (98-107); Glucose 173 mg/dL (70-105); Magnesium 1.9 mg/dL (1.6-2.6); Osmolality,Calculated 294 (280-300); Potassium 4.5 mEq/L (3.5-5.1); Sodium 137 mEq/L (136-145); eGFR For African Americans > 60 (> 60); eGFR For Non-African Americans > 60 (> 60)
[2022-05-16] MEDS: *HR* Enoxaparin 40 MG/0.4 ML SYRINGE SQ SCH (06:19)
[2022-05-16] MEDS: Vancomycin 2,000 MG/520 ML IV.SOLN IVPB SCH (06:20)
[2022-05-16] MEDS: Furosemide 40 MG TABLET PO SCH ×2 (07:37→16:26)
[2022-05-16] MEDS: Isosorbide MONOnitrate (24 HR) 30 MG TAB.ER.24H PO SCH (07:37)
[2022-05-16] MEDS: Gabapentin 400 MG CAPSULE PO SCH ×3 (07:37→21:51)
[2022-05-16] MEDS: Insulin LISPRO 300 UNITS/3 ML VIAL SUBQ SCH ×4 (07:37→21:52)
[2022-05-16] MEDS: polyethylene glycoL 3350 17 GM POWD.PACK PO SCH (07:38)
[2022-05-16] MEDS: Aspirin 81 MG TAB.CHEW PO SCH (07:38)
[2022-05-16] MEDS: *HR* Amiodarone 200 MG TABLET PO SCH ×2 (07:38→21:51)
[2022-05-16] MEDS: Valsartan 160 MG TABLET PO SCH (07:38)
[2022-05-16] MEDS: Insulin DETEMIR 100 UNIT/ML X5UNITS SUBQ SCH ×2 (07:39→21:51)
[2022-05-17] MEDS: Ipratropium/Albuterol Neb 3 ML IH PRN ×4 (04:16→21:46)
[2022-05-17] MEDS: Acetylcysteine 10% 2 ML INHSOL IH SCH ×4 (04:16→21:46)
[2022-05-17] MEDS: Vancomycin 2,000 MG/520 ML IV.SOLN IVPB SCH (05:20)
[2022-05-17] MEDS: *HR* Enoxaparin 40 MG/0.4 ML SYRINGE SQ SCH (05:57)
[2022-05-17] MEDS: *HR* OxyCODONE/APAP 5/325 TABLET PO PRN ×2 (06:01→10:32)
[2022-05-17 07:12] LABS: Basophils # 0.1 K/mcL (0.0-0.2); Basophils % 0.7 %; Eosinophils # 0.2 K/mcL (0.0-0.6); Eosinophils % 2.3 %; Hemoglobin 8.8 g/dL (12.9-16.9); Immature Granulocytes % 0.6 % (0-4); Lymphocytes # 1.9 K/mcL (0.6-4.6); Lymphocytes % 22.9 %; Mean Corpuscular HGB Conc 30.3 g/dL (31.6-35.5); Mean Corpuscular Hemoglobin 29.9 pg (28.0-33.3); Mean Corpuscular Volume 98.6 fL (83.0-100.0); Monocytes # 0.7 K/mcL (0.0-1.3); Monocytes % 8.5 %; Neutrophils # 5.4 K/mcL (1.6-8.9); Platelet Count 365 K/mcL (140-400); Red Blood Count 2.94 M/mcL (4.19-5.50); White Blood Count 8.4 K/mcL (4.3-11.1)
[2022-05-17 07:33] LABS: BUN/Creatinine Ratio 23 (6-26); Blood Urea Nitrogen 24 mg/dL (8-23); Calcium 8.5 mg/dL (8.6-10.3); Carbon Dioxide 26 mEq/L (23-29); Chloride 104 mEq/L (98-107); Glucose 169 mg/dL (70-105); Magnesium 1.8 mg/dL (1.6-2.6); Osmolality,Calculated 292 (280-300); Potassium 4.1 mEq/L (3.5-5.1); Sodium 137 mEq/L (136-145); eGFR For African Americans > 60 (> 60); eGFR For Non-African Americans > 60 (> 60)
[2022-05-17] MEDS: Insulin LISPRO 300 UNITS/3 ML VIAL SUBQ SCH ×4 (08:31→21:07)
[2022-05-17] MEDS: Isosorbide MONOnitrate (24 HR) 30 MG TAB.ER.24H PO SCH (08:33)
[2022-05-17] MEDS: Aspirin 81 MG TAB.CHEW PO SCH (08:33)
[2022-05-17] MEDS: Valsartan 160 MG TABLET PO SCH (08:33)
[2022-05-17] MEDS: Gabapentin 400 MG CAPSULE PO SCH ×3 (08:34→21:06)
[2022-05-17] MEDS: *HR* Amiodarone 200 MG TABLET PO SCH ×2 (08:34→21:06)
[2022-05-17] MEDS: Furosemide 40 MG TABLET PO SCH ×2 (08:34→17:13)
[2022-05-17] MEDS: polyethylene glycoL 3350 17 GM POWD.PACK PO SCH (08:34)
[2022-05-17] MEDS: Insulin DETEMIR 100 UNIT/ML X5UNITS SUBQ SCH ×2 (08:40→21:07)
[2022-05-18] MEDS: Ipratropium/Albuterol Neb 3 ML IH PRN ×4 (04:16→23:09)
[2022-05-18] MEDS: Acetylcysteine 10% 2 ML INHSOL IH SCH ×4 (04:16→23:09)
[2022-05-18] MEDS: *HR* OxyCODONE/APAP 5/325 TABLET PO PRN ×3 (04:45→21:46)
[2022-05-18] MEDS: Vancomycin 2,000 MG/520 ML IV.SOLN IVPB SCH (04:47)
[2022-05-18] MEDS: *HR* Enoxaparin 40 MG/0.4 ML SYRINGE SQ SCH (06:27)
[2022-05-18] MEDS: Insulin LISPRO 300 UNITS/3 ML VIAL SUBQ SCH ×4 (07:55→21:09)
[2022-05-18] MEDS: Aspirin 81 MG TAB.CHEW PO SCH (08:02)
[2022-05-18] MEDS: Isosorbide MONOnitrate (24 HR) 30 MG TAB.ER.24H PO SCH (08:02)
[2022-05-18] MEDS: Gabapentin 400 MG CAPSULE PO SCH ×3 (08:03→21:08)
[2022-05-18] MEDS: Furosemide 40 MG TABLET PO SCH ×2 (08:03→17:36)
[2022-05-18] MEDS: *HR* Amiodarone 200 MG TABLET PO SCH ×2 (08:03→21:08)
[2022-05-18] MEDS: polyethylene glycoL 3350 17 GM POWD.PACK PO SCH (08:03)
[2022-05-18] MEDS: Valsartan 160 MG TABLET PO SCH (08:03)
[2022-05-18] MEDS: Insulin DETEMIR 100 UNIT/ML X5UNITS SUBQ SCH ×2 (08:06→21:08)
[2022-05-19 04:01] LABS: Basophils % 0.5 %; Eosinophils # 0.3 K/mcL (0.0-0.6); Eosinophils % 4.1 %; Hematocrit 28.2 % (37.5-50.1); Hemoglobin 8.8 g/dL (12.9-16.9); Immature Granulocytes % 0.7 % (0-4); Lymphocytes # 1.8 K/mcL (0.6-4.6); Lymphocytes % 24.1 %; Mean Corpuscular HGB Conc 31.2 g/dL (31.6-35.5); Mean Corpuscular Hemoglobin 30.6 pg (28.0-33.3); Mean Corpuscular Volume 97.9 fL (83.0-100.0); Mean Platelet Volume 9.1 fL (9.4-12.4); Monocytes # 0.7 K/mcL (0.0-1.3); Monocytes % 9.5 %; Neutrophils # 4.6 K/mcL (1.6-8.9); Platelet Count 316 K/mcL (140-400); Red Blood Count 2.88 M/mcL (4.19-5.50); Red Cell Distribution Width 16.2 % (11.5-14.5); Segmented Neutrophils % 61.1 %; White Blood Count 7.6 K/mcL (4.3-11.1)
[2022-05-19] MEDS: Ipratropium/Albuterol Neb 3 ML IH PRN ×4 (04:11→22:12)
[2022-05-19] MEDS: Acetylcysteine 10% 2 ML INHSOL IH SCH ×4 (04:11→22:12)
[2022-05-19 04:33] LABS: BUN/Creatinine Ratio 20 (6-26); Blood Urea Nitrogen 20 mg/dL (8-23); Calcium 8.5 mg/dL (8.6-10.3); Carbon Dioxide 26 mEq/L (23-29); Chloride 106 mEq/L (98-107); Glucose 115 mg/dL (70-105); Osmolality,Calculated 290 (280-300); Potassium 3.8 mEq/L (3.5-5.1); Sodium 138 mEq/L (136-145); eGFR For African Americans > 60 (> 60); eGFR For Non-African Americans > 60 (> 60)
[2022-05-19] MEDS: Vancomycin 2,000 MG/520 ML IV.SOLN IVPB SCH (05:42)
[2022-05-19] MEDS: *HR* Enoxaparin 40 MG/0.4 ML SYRINGE SQ SCH (05:42)
[2022-05-19] MEDS: Insulin LISPRO 300 UNITS/3 ML VIAL SUBQ SCH ×4 (07:41→21:14)
[2022-05-19] MEDS: Gabapentin 400 MG CAPSULE PO SCH ×3 (08:06→21:14)
[2022-05-19] MEDS: Insulin DETEMIR 100 UNIT/ML X5UNITS SUBQ SCH ×2 (08:06→21:14)
[2022-05-19] MEDS: *HR* OxyCODONE/APAP 5/325 TABLET PO PRN ×3 (08:07→21:14)
[2022-05-19] MEDS: *HR* Amiodarone 200 MG TABLET PO SCH ×2 (08:07→21:14)
[2022-05-19] MEDS: Aspirin 81 MG TAB.CHEW PO SCH (08:07)
[2022-05-19] MEDS: Valsartan 160 MG TABLET PO SCH (08:07)
[2022-05-19] MEDS: Furosemide 40 MG TABLET PO SCH ×2 (08:07→16:39)
[2022-05-19] MEDS: Isosorbide MONOnitrate (24 HR) 30 MG TAB.ER.24H PO SCH (08:07)
[2022-05-19] MEDS: polyethylene glycoL 3350 17 GM POWD.PACK PO SCH (08:07)
[2022-05-20] MEDS: Ipratropium/Albuterol Neb 3 ML IH PRN ×3 (04:36→22:32)
[2022-05-20] MEDS: Acetylcysteine 10% 2 ML INHSOL IH SCH ×4 (04:36→22:32)
[2022-05-20] MEDS: Vancomycin 2,000 MG/520 ML IV.SOLN IVPB SCH (06:09)
[2022-05-20] MEDS: *HR* Enoxaparin 40 MG/0.4 ML SYRINGE SQ SCH (06:10)
[2022-05-20] MEDS: Valsartan 160 MG TABLET PO SCH (07:54)
[2022-05-20] MEDS: Insulin DETEMIR 100 UNIT/ML X5UNITS SUBQ SCH ×2 (08:00→20:17)
[2022-05-20] MEDS: Aspirin 81 MG TAB.CHEW PO SCH (08:00)
[2022-05-20] MEDS: *HR* Amiodarone 200 MG TABLET PO SCH ×2 (08:01→20:17)
[2022-05-20] MEDS: Isosorbide MONOnitrate (24 HR) 30 MG TAB.ER.24H PO SCH (08:01)
[2022-05-20] MEDS: Gabapentin 400 MG CAPSULE PO SCH ×3 (08:01→20:16)
[2022-05-20] MEDS: Insulin LISPRO 300 UNITS/3 ML VIAL SUBQ SCH ×4 (08:01→20:19)
[2022-05-20] MEDS: Furosemide 40 MG TABLET PO SCH ×2 (08:01→16:55)
[2022-05-20] MEDS: *HR* OxyCODONE/APAP 5/325 TABLET PO PRN ×3 (08:01→20:16)
[2022-05-20] MEDS: polyethylene glycoL 3350 17 GM POWD.PACK PO SCH (08:02)
[2022-05-20] MEDS ORDERED: *HR* FentaNYL (PF) 100 MCG/2 ML VIAL IVP ONE (10:39)
[2022-05-20] MEDS ORDERED: Ketorolac 30 MG/ML VIAL IVP ONE (10:47)
[2022-05-20] MEDS: Vancomycin 1,250 MG/262.5 ML IV.SOLN IVPB SCH (20:20)
[2022-05-21] MEDS: Ipratropium/Albuterol Neb 3 ML IH PRN (03:44)
[2022-05-21] MEDS: Acetylcysteine 10% 2 ML INHSOL IH SCH (03:44)
[2022-05-21] MEDS: *HR* Enoxaparin 40 MG/0.4 ML SYRINGE SQ SCH (04:52)
[2022-05-21 05:43] LABS: Basophils % 0.6 %; Eosinophils # 0.3 K/mcL (0.0-0.6); Eosinophils % 4.3 %; Hematocrit 29.2 % (37.5-50.1); Immature Granulocytes % 0.6 % (0-4); Lymphocytes # 1.8 K/mcL (0.6-4.6); Lymphocytes % 25.4 %; Mean Corpuscular HGB Conc 30.8 g/dL (31.6-35.5); Mean Corpuscular Volume 97.3 fL (83.0-100.0); Mean Platelet Volume 9.1 fL (9.4-12.4); Monocytes # 0.6 K/mcL (0.0-1.3); Monocytes % 8.3 %; Neutrophils # 4.4 K/mcL (1.6-8.9); Platelet Count 296 K/mcL (140-400); Red Cell Distribution Width 16.1 % (11.5-14.5); Segmented Neutrophils % 60.8 %; White Blood Count 7.2 K/mcL (4.3-11.1)
[2022-05-21 06:00] LABS: BUN/Creatinine Ratio 19 (6-26); Blood Urea Nitrogen 21 mg/dL (8-23); Calcium 8.5 mg/dL (8.6-10.3); Carbon Dioxide 25 mEq/L (23-29); Chloride 105 mEq/L (98-107); Glucose 165 mg/dL (70-105); Osmolality,Calculated 291 (280-300); Potassium 3.9 mEq/L (3.5-5.1); Sodium 137 mEq/L (136-145); eGFR For African Americans > 60 (> 60); eGFR For Non-African Americans > 60 (> 60)
[2022-05-21] MEDS: Gabapentin 400 MG CAPSULE PO SCH ×3 (07:57→20:33)
[2022-05-21] MEDS: *HR* OxyCODONE/APAP 5/325 TABLET PO PRN ×3 (07:57→20:33)
[2022-05-21] MEDS: Aspirin 81 MG TAB.CHEW PO SCH (07:58)
[2022-05-21] MEDS: Furosemide 40 MG TABLET PO SCH ×2 (07:58→16:31)
[2022-05-21] MEDS: Valsartan 160 MG TABLET PO SCH (07:58)
[2022-05-21] MEDS: Isosorbide MONOnitrate (24 HR) 30 MG TAB.ER.24H PO SCH (07:58)
[2022-05-21] MEDS: *HR* Amiodarone 200 MG TABLET PO SCH ×2 (07:58→20:34)
[2022-05-21] MEDS: Vancomycin 1,250 MG/262.5 ML IV.SOLN IVPB SCH ×2 (07:58→20:35)
[2022-05-21] MEDS: Insulin LISPRO 300 UNITS/3 ML VIAL SUBQ SCH ×4 (07:59→20:34)
[2022-05-21] MEDS: Insulin DETEMIR 100 UNIT/ML X5UNITS SUBQ SCH ×2 (07:59→20:34)
[2022-05-22] MEDS: *HR* Enoxaparin 40 MG/0.4 ML SYRINGE SQ SCH (04:51)
[2022-05-22 07:06] LABS: Basophils # 0.1 K/mcL (0.0-0.2); Basophils % 0.5 %; Eosinophils # 0.4 K/mcL (0.0-0.6); Hematocrit 28.9 % (37.5-50.1); Hemoglobin 9.3 g/dL (12.9-16.9); Immature Granulocytes % 0.7 % (0-4); Lymphocytes % 30.1 %; Mean Corpuscular HGB Conc 32.2 g/dL (31.6-35.5); Mean Corpuscular Hemoglobin 30.3 pg (28.0-33.3); Mean Corpuscular Volume 94.1 fL (83.0-100.0); Mean Platelet Volume 9.7 fL (9.4-12.4); Monocytes % 9.8 %; Neutrophils # 5.4 K/mcL (1.6-8.9); Platelet Count 270 K/mcL (140-400); Red Blood Count 3.07 M/mcL (4.19-5.50); Red Cell Distribution Width 15.9 % (11.5-14.5); Segmented Neutrophils % 54.9 %; White Blood Count 9.8 K/mcL (4.3-11.1)
[2022-05-22 07:23] LABS: BUN/Creatinine Ratio 21 (6-26); Blood Urea Nitrogen 20 mg/dL (8-23); Calcium 8.6 mg/dL (8.6-10.3); Carbon Dioxide 25 mEq/L (23-29); Chloride 106 mEq/L (98-107); Glucose 132 mg/dL (70-105); Osmolality,Calculated 288 (280-300); Potassium 4.8 mEq/L (3.5-5.1); Sodium 137 mEq/L (136-145); eGFR For African Americans > 60 (> 60); eGFR For Non-African Americans > 60 (> 60)
[2022-05-22] MEDS: Insulin LISPRO 300 UNITS/3 ML VIAL SUBQ SCH ×4 (08:20→20:21)
[2022-05-22] MEDS: Furosemide 40 MG TABLET PO SCH ×2 (08:21→16:54)
[2022-05-22] MEDS: Aspirin 81 MG TAB.CHEW PO SCH (08:21)
[2022-05-22] MEDS: *HR* OxyCODONE/APAP 5/325 TABLET PO PRN ×3 (08:21→20:20)
[2022-05-22] MEDS: Valsartan 160 MG TABLET PO SCH (08:21)
[2022-05-22] MEDS: *HR* Amiodarone 200 MG TABLET PO SCH ×2 (08:21→20:20)
[2022-05-22] MEDS: Gabapentin 400 MG CAPSULE PO SCH ×3 (08:21→20:20)
[2022-05-22] MEDS: Isosorbide MONOnitrate (24 HR) 30 MG TAB.ER.24H PO SCH (08:21)
[2022-05-22] MEDS: Vancomycin 1,250 MG/262.5 ML IV.SOLN IVPB SCH ×2 (08:22→20:20)
[2022-05-22] MEDS: Insulin DETEMIR 100 UNIT/ML X5UNITS SUBQ SCH ×2 (08:22→20:19)
[2022-05-22] MEDS ORDERED: Ketorolac 30 MG/ML VIAL IVP ONE (11:00)
[2022-05-23] MEDS: *HR* Enoxaparin 40 MG/0.4 ML SYRINGE SQ SCH (05:32)
[2022-05-23 06:32] LABS: Basophils # 0.1 K/mcL (0.0-0.2); Basophils % 0.8 %; Eosinophils # 0.4 K/mcL (0.0-0.6); Eosinophils % 4.8 %; Hematocrit 29.9 % (37.5-50.1); Hemoglobin 9.6 g/dL (12.9-16.9); Lymphocytes # 3.2 K/mcL (0.6-4.6); Lymphocytes % 34.6 %; Mean Corpuscular HGB Conc 32.1 g/dL (31.6-35.5); Mean Corpuscular Hemoglobin 30.3 pg (28.0-33.3); Mean Corpuscular Volume 94.3 fL (83.0-100.0); Monocytes % 10.7 %; Platelet Count 293 K/mcL (140-400); Red Blood Count 3.17 M/mcL (4.19-5.50); Red Cell Distribution Width 15.9 % (11.5-14.5); Segmented Neutrophils % 47.1 %; White Blood Count 9.2 K/mcL (4.3-11.1)
[2022-05-23 06:36] LABS: Neutrophils # 4.3 K/mcL (1.6-8.9)
[2022-05-23 06:49] LABS: BUN/Creatinine Ratio 21 (6-26); Blood Urea Nitrogen 21 mg/dL (8-23); Calcium 8.3 mg/dL (8.6-10.3); Carbon Dioxide 23 mEq/L (23-29); Chloride 106 mEq/L (98-107); Glucose 92 mg/dL (70-105); Osmolality,Calculated 287 (280-300); Potassium 4.9 mEq/L (3.5-5.1); Sodium 137 mEq/L (136-145); eGFR For African Americans > 60 (> 60); eGFR For Non-African Americans > 60 (> 60)
[2022-05-23] MEDS: Insulin DETEMIR 100 UNIT/ML X5UNITS SUBQ SCH ×2 (09:18→20:22)
[2022-05-23] MEDS: Insulin LISPRO 300 UNITS/3 ML VIAL SUBQ SCH ×4 (09:18→20:23)
[2022-05-23] MEDS: *HR* Amiodarone 200 MG TABLET PO SCH ×2 (09:19→20:22)
[2022-05-23] MEDS: Valsartan 160 MG TABLET PO SCH (09:19)
[2022-05-23] MEDS: Furosemide 40 MG TABLET PO SCH ×2 (09:19→16:16)
[2022-05-23] MEDS: *HR* OxyCODONE/APAP 5/325 TABLET PO PRN ×3 (09:19→20:39)
[2022-05-23] MEDS: Gabapentin 400 MG CAPSULE PO SCH ×3 (09:19→20:22)
[2022-05-23] MEDS: Isosorbide MONOnitrate (24 HR) 30 MG TAB.ER.24H PO SCH (09:19)
[2022-05-23] MEDS: Aspirin 81 MG TAB.CHEW PO SCH (09:19)
[2022-05-23] MEDS: Vancomycin 1,250 MG/262.5 ML IV.SOLN IVPB SCH ×2 (09:20→20:39)
[2022-05-24 02:50] LABS: Basophils % 0.4 %; Eosinophils # 0.4 K/mcL (0.0-0.6); Eosinophils % 5.5 %; Hematocrit 29.1 % (37.5-50.1); Hemoglobin 9.1 g/dL (12.9-16.9); Immature Granulocytes % 0.6 % (0-4); Lymphocytes # 1.8 K/mcL (0.6-4.6); Lymphocytes % 25.5 %; Mean Corpuscular HGB Conc 31.3 g/dL (31.6-35.5); Mean Corpuscular Hemoglobin 30.3 pg (28.0-33.3); Mean Platelet Volume 9.7 fL (9.4-12.4); Monocytes # 0.6 K/mcL (0.0-1.3); Monocytes % 8.7 %; Neutrophils # 4.1 K/mcL (1.6-8.9); Platelet Count 259 K/mcL (140-400); Red Cell Distribution Width 15.9 % (11.5-14.5); Segmented Neutrophils % 59.3 %; White Blood Count 6.9 K/mcL (4.3-11.1)
[2022-05-24 03:22] LABS: BUN/Creatinine Ratio 20 (6-26); Blood Urea Nitrogen 20 mg/dL (8-23); Calcium 8.6 mg/dL (8.6-10.3); Carbon Dioxide 26 mEq/L (23-29); Chloride 105 mEq/L (98-107); Glucose 174 mg/dL (70-105); Osmolality,Calculated 293 (280-300); Potassium 3.5 mEq/L (3.5-5.1); Sodium 138 mEq/L (136-145); eGFR For African Americans > 60 (> 60); eGFR For Non-African Americans > 60 (> 60)
[2022-05-24] MEDS: *HR* Enoxaparin 40 MG/0.4 ML SYRINGE SQ SCH (05:59)
[2022-05-24] MEDS: Gabapentin 400 MG CAPSULE PO SCH ×3 (09:47→19:53)
[2022-05-24] MEDS: Valsartan 160 MG TABLET PO SCH (09:47)
[2022-05-24] MEDS: Ketorolac 30 MG/ML VIAL IVP SCH (09:48)
[2022-05-24] MEDS: Isosorbide MONOnitrate (24 HR) 30 MG TAB.ER.24H PO SCH (09:48)
[2022-05-24] MEDS: *HR* OxyCODONE/APAP 5/325 TABLET PO PRN ×2 (09:48→19:27)
[2022-05-24] MEDS: Aspirin 81 MG TAB.CHEW PO SCH (09:48)
[2022-05-24] MEDS: *HR* Amiodarone 200 MG TABLET PO SCH ×2 (09:48→19:39)
[2022-05-24] MEDS: Insulin LISPRO 300 UNITS/3 ML VIAL SUBQ SCH ×4 (10:45→19:40)
[2022-05-24] MEDS: Insulin DETEMIR 100 UNIT/ML X5UNITS SUBQ SCH ×2 (10:45→19:39)
[2022-05-24] MEDS: Furosemide 40 MG TABLET PO SCH ×2 (10:46→17:02)
[2022-05-24] MEDS: Vancomycin 1,250 MG/262.5 ML IV.SOLN IVPB SCH ×2 (10:46→19:39)
[2022-05-25] MEDS: *HR* Enoxaparin 40 MG/0.4 ML SYRINGE SQ SCH (06:38)
[2022-05-25] MEDS: Insulin LISPRO 300 UNITS/3 ML VIAL SUBQ SCH ×4 (09:18→20:08)
[2022-05-25] MEDS: Isosorbide MONOnitrate (24 HR) 30 MG TAB.ER.24H PO SCH (09:22)
[2022-05-25] MEDS: Gabapentin 400 MG CAPSULE PO SCH ×3 (09:22→20:07)
[2022-05-25] MEDS: Valsartan 160 MG TABLET PO SCH (09:22)
[2022-05-25] MEDS: *HR* Amiodarone 200 MG TABLET PO SCH ×2 (09:22→20:07)
[2022-05-25] MEDS: Aspirin 81 MG TAB.CHEW PO SCH (09:22)
[2022-05-25] MEDS: Furosemide 40 MG TABLET PO SCH ×2 (09:23→17:14)
[2022-05-25] MEDS: Vancomycin 1,250 MG/262.5 ML IV.SOLN IVPB SCH ×2 (09:27→20:08)
[2022-05-25] MEDS: Insulin DETEMIR 100 UNIT/ML X5UNITS SUBQ SCH ×2 (09:27→20:40)
[2022-05-25] MEDS: *HR* OxyCODONE/APAP 5/325 TABLET PO PRN (14:09)
[2022-05-25] MEDS ORDERED: Albumin 25% 25gram/100mL 25 GM/100 ML IV.SOLN IVPB ONE (16:30)
[2022-05-26 02:12] LABS: Basophils % 0.4 %; Eosinophils # 0.4 K/mcL (0.0-0.6); Eosinophils % 4.5 %; Hematocrit 27.2 % (37.5-50.1); Hemoglobin 8.6 g/dL (12.9-16.9); Immature Granulocytes % 0.4 % (0-4); Lymphocytes # 1.7 K/mcL (0.6-4.6); Lymphocytes % 21.3 %; Mean Corpuscular HGB Conc 31.6 g/dL (31.6-35.5); Mean Corpuscular Hemoglobin 30.4 pg (28.0-33.3); Mean Corpuscular Volume 96.1 fL (83.0-100.0); Mean Platelet Volume 9.5 fL (9.4-12.4); Monocytes # 0.8 K/mcL (0.0-1.3); Monocytes % 10.3 %; Neutrophils # 4.9 K/mcL (1.6-8.9); Platelet Count 253 K/mcL (140-400); Red Blood Count 2.83 M/mcL (4.19-5.50); Red Cell Distribution Width 15.9 % (11.5-14.5); Segmented Neutrophils % 63.1 %; White Blood Count 7.7 K/mcL (4.3-11.1)
[2022-05-26 02:29] LABS: BUN/Creatinine Ratio 18 (6-26); Blood Urea Nitrogen 21 mg/dL (8-23); Calcium 8.8 mg/dL (8.6-10.3); Carbon Dioxide 26 mEq/L (23-29); Chloride 105 mEq/L (98-107); Glucose 113 mg/dL (70-105); Osmolality,Calculated 290 (280-300); Potassium 3.7 mEq/L (3.5-5.1); Sodium 138 mEq/L (136-145); eGFR For African Americans > 60 (> 60); eGFR For Non-African Americans > 60 (> 60)
[2022-05-26] MEDS: *HR* Enoxaparin 40 MG/0.4 ML SYRINGE SQ SCH (05:59)
[2022-05-26] MEDS: Insulin LISPRO 300 UNITS/3 ML VIAL SUBQ SCH ×4 (08:57→19:53)
[2022-05-26] MEDS: Valsartan 160 MG TABLET PO SCH (09:16)
[2022-05-26] MEDS: Aspirin 81 MG TAB.CHEW PO SCH (09:16)
[2022-05-26] MEDS: Isosorbide MONOnitrate (24 HR) 30 MG TAB.ER.24H PO SCH (09:16)
[2022-05-26] MEDS: *HR* Amiodarone 200 MG TABLET PO SCH ×2 (09:16→19:52)
[2022-05-26] MEDS: Gabapentin 400 MG CAPSULE PO SCH ×3 (09:16→19:52)
[2022-05-26] MEDS: Insulin DETEMIR 100 UNIT/ML X5UNITS SUBQ SCH ×2 (09:16→19:52)
[2022-05-26] MEDS: Furosemide 40 MG TABLET PO SCH (09:17)
[2022-05-26] MEDS: Vancomycin 1,250 MG/262.5 ML IV.SOLN IVPB SCH ×2 (09:33→19:53)
[2022-05-26] MEDS: *HR* OxyCODONE/APAP 5/325 TABLET PO PRN (10:18)
[2022-05-26] MEDS ORDERED: Furosemide 40 MG/4 ML VIAL IVP ONE (11:38)
[2022-05-26] MEDS ORDERED: *HR* OxyCODONE Immed Rel 5 MG TABLET PO PRN (11:39)
[2022-05-27 01:16] LABS: Hematocrit 26.5 % (37.5-50.1); Hemoglobin 8.2 g/dL (12.9-16.9); Mean Corpuscular HGB Conc 30.9 g/dL (31.6-35.5); Mean Corpuscular Hemoglobin 29.6 pg (28.0-33.3); Mean Corpuscular Volume 95.7 fL (83.0-100.0); Mean Platelet Volume 9.5 fL (9.4-12.4); Platelet Count 250 K/mcL (140-400); Red Blood Count 2.77 M/mcL (4.19-5.50); Red Cell Distribution Width 15.6 % (11.5-14.5); White Blood Count 7.6 K/mcL (4.3-11.1)
[2022-05-27 01:36] LABS: BUN/Creatinine Ratio 16 (6-26); Blood Urea Nitrogen 19 mg/dL (8-23); Calcium 8.7 mg/dL (8.6-10.3); Carbon Dioxide 26 mEq/L (23-29); Chloride 105 mEq/L (98-107); Glucose 138 mg/dL (70-105); Osmolality,Calculated 290 (280-300); Potassium 3.9 mEq/L (3.5-5.1); Sodium 138 mEq/L (136-145); eGFR For African Americans > 60 (> 60); eGFR For Non-African Americans > 60 (> 60)
[2022-05-27] MEDS: *HR* Enoxaparin 40 MG/0.4 ML SYRINGE SQ SCH (05:45)
[2022-05-27] MEDS: Ketorolac 30 MG/ML VIAL IVP SCH (07:57)
[2022-05-27] MEDS: *HR* Amiodarone 200 MG TABLET PO SCH ×2 (08:06→20:08)
[2022-05-27] MEDS: Insulin DETEMIR 100 UNIT/ML X5UNITS SUBQ SCH ×2 (08:06→20:09)
[2022-05-27] MEDS: Gabapentin 400 MG CAPSULE PO SCH ×3 (08:06→20:08)
[2022-05-27] MEDS: Isosorbide MONOnitrate (24 HR) 30 MG TAB.ER.24H PO SCH (08:06)
[2022-05-27] MEDS: Valsartan 160 MG TABLET PO SCH (08:06)
[2022-05-27] MEDS: Aspirin 81 MG TAB.CHEW PO SCH (08:06)
[2022-05-27] MEDS: Insulin LISPRO 300 UNITS/3 ML VIAL SUBQ SCH ×4 (08:08→20:09)
[2022-05-27] MEDS: *HR* OxyCODONE Immed Rel 5 MG TABLET PO PRN ×3 (08:12→20:07)
[2022-05-27] MEDS: Vancomycin 1,250 MG/262.5 ML IV.SOLN IVPB SCH ×2 (08:16→20:10)
[2022-05-27 12:12] LABS: C-Reactive Protein 23 mg/L (Less than 10)
[2022-05-27] MEDS: *HR* HYDROmorphone (PF) 1 MG/ML SYRINGE IVP PRN ×2 (13:56→23:48)
[2022-05-27] MEDS: MetroNIDAZOLE 500 MG/100 ML 500 MG/100 ML BAG IVPB SCH ×2 (16:20→23:51)
[2022-05-27] MEDS: Furosemide 40 MG TABLET PO SCH (16:21)
[2022-05-27] MEDS: Cefepime HCl 2,000 MG in 0.9 % Sodium Chloride 10 ML IVP SCH ×2 (16:21→23:49)
[2022-05-27] MEDS ORDERED: Iopamidol - 370 500 ML MLS IVP ONE (16:38)
[2022-05-27] MEDS ORDERED: Albumin Human 5% 12.5 GM/250 ML IV.SOLN IVPB ONE ×2 (16:45→20:55)
[2022-05-27 19:27] LABS: Adenovirus Not Detected (Not Detect); Bordetella Pertussis Not Detected (Not Detect); Chlamydophila pneumoniae Not Detected (Not Detect); Coronavirus 229E Not Detected (Not Detect); Coronavirus HKU1 Not Detected (Not Detect); Coronavirus NL63 Not Detected (Not Detect); Coronavirus OC43 Not Detected (Not Detect); Human Metapneumovirus Not Detected (Not Detect); Human Rhinovirus/Enterovirus Not Detected (Not Detect); Influenza A Subtype 2009 H1 Not Detected (Not Detect); Influenza B Not Detected (Not Detect); Parainfluenza Virus 1 Not Detected (Not Detect); Parainfluenza Virus 2 Not Detected (Not Detect); Parainfluenza Virus 3 Not Detected (Not Detect); Parainfluenza Virus 4 Not Detected (Not Detect); Respiratory Syncytial Virus Not Detected (Not Detect); SARS-CoV-2 Not Detected (Not Detect)
[2022-05-27 19:28] LABS: Mycoplasma pneumoniae Not Detected (Not Detect)
[2022-05-28] MEDS: *HR* OxyCODONE Immed Rel 5 MG TABLET PO PRN ×3 (00:45→20:34)
[2022-05-28 04:02] LABS: BUN/Creatinine Ratio 14 (6-26); Blood Urea Nitrogen 18 mg/dL (8-23); Calcium 8.7 mg/dL (8.6-10.3); Carbon Dioxide 24 mEq/L (23-29); Chloride 101 mEq/L (98-107); Glucose 127 mg/dL (70-105); Osmolality,Calculated 283 (280-300); Potassium 4.4 mEq/L (3.5-5.1); Sodium 135 mEq/L (136-145); eGFR For African Americans > 60 (> 60); eGFR For Non-African Americans 55 (> 60)
[2022-05-28 06:37] LABS: Hematocrit 28.3 % (37.5-50.1); Mean Corpuscular HGB Conc 31.8 g/dL (31.6-35.5); Mean Corpuscular Hemoglobin 30.2 pg (28.0-33.3); Mean Platelet Volume 9.5 fL (9.4-12.4); Platelet Count 244 K/mcL (140-400); Red Blood Count 2.98 M/mcL (4.19-5.50); Red Cell Distribution Width 15.9 % (11.5-14.5); White Blood Count 10.8 K/mcL (4.3-11.1)
[2022-05-28] MEDS: *HR* HYDROmorphone (PF) 1 MG/ML SYRINGE IVP PRN (06:46)
[2022-05-28] MEDS: *HR* Enoxaparin 40 MG/0.4 ML SYRINGE SQ SCH (06:46)
[2022-05-28] MEDS: Insulin LISPRO 300 UNITS/3 ML VIAL SUBQ SCH ×4 (07:25→20:35)
[2022-05-28] MEDS: Furosemide 40 MG TABLET PO SCH ×2 (08:37→16:41)
[2022-05-28] MEDS: Isosorbide MONOnitrate (24 HR) 30 MG TAB.ER.24H PO SCH (08:37)
[2022-05-28] MEDS: Valsartan 160 MG TABLET PO SCH (08:37)
[2022-05-28] MEDS: Gabapentin 400 MG CAPSULE PO SCH ×3 (08:38→20:36)
[2022-05-28] MEDS: Aspirin 81 MG TAB.CHEW PO SCH (08:38)
[2022-05-28] MEDS: *HR* Amiodarone 200 MG TABLET PO SCH ×2 (08:38→20:34)
[2022-05-28] MEDS: Cefepime HCl 2,000 MG in 0.9 % Sodium Chloride 10 ML IVP SCH ×2 (08:38→20:33)
[2022-05-28] MEDS: MetroNIDAZOLE 500 MG/100 ML 500 MG/100 ML BAG IVPB SCH ×2 (08:39→15:30)
[2022-05-28] MEDS: Insulin DETEMIR 100 UNIT/ML X5UNITS SUBQ SCH ×2 (08:40→20:33)
[2022-05-28 14:42] LABS: INR 1.3; Prothrombin Time 14.7 Seconds (9.4-12.1)
[2022-05-28 14:45] LABS: Activated Partial Thrombo Time 33.7 Seconds (26.0-36.0)
[2022-05-28] MEDS: Chlorhexidine Rinse 15 ML MOUTHWASH MM SCH (20:33)
[2022-05-29] MEDS: *HR* OxyCODONE Immed Rel 5 MG TABLET PO PRN ×2 (00:05→19:45)
[2022-05-29] MEDS: MetroNIDAZOLE 500 MG/100 ML 500 MG/100 ML BAG IVPB SCH ×4 (00:06→23:12)
[2022-05-29] MEDS: *HR* Enoxaparin 40 MG/0.4 ML SYRINGE SQ SCH (06:15)
[2022-05-29] MEDS ORDERED: *HR* Midazolam HCl 5 MG/5 ML VIAL IVP ONE (06:52)
[2022-05-29] MEDS ORDERED: *HR* FentaNYL (PF) 250 MCG/5 ML VIAL ONE (06:52)
[2022-05-29] MEDS ORDERED: *HR* Propofol 200 MG/20 ML VIAL IVP ONE (06:52)
[2022-05-29] MEDS ORDERED: *HR* Rocuronium Bromide 50 MG/5 ML VIAL ONE ×4 (06:53→11:48)
[2022-05-29] MEDS: Insulin LISPRO 300 UNITS/3 ML VIAL SUBQ SCH ×4 (07:03→19:50)
[2022-05-29] MEDS: Cefepime HCl 2,000 MG in 0.9 % Sodium Chloride 10 ML IVP SCH ×2 (07:10→19:49)
[2022-05-29] MEDS: Chlorhexidine Rinse 15 ML MOUTHWASH MM SCH (07:17)
[2022-05-29] MEDS ORDERED: Vancomycin 1,000 MG VIAL ONE ×2 (07:26→08:52)
[2022-05-29] MEDS ORDERED: Heparin 1,000 UNITS/500 mL 500 ML ONE (07:45)
[2022-05-29] MEDS ORDERED: *HR* HYDROMORPHONE 2 MG/ML VIAL ONE (10:35)
[2022-05-29] MEDS ORDERED: Ondansetron 4 MG/2 ML VIAL ONE (11:36)
[2022-05-29] MEDS ORDERED: Acetaminophen 325 MG TABLET PO PRN (12:54)
[2022-05-29] MEDS ORDERED: *HR* Dextrose 50 % in Water (Syg) 50 ML SYRINGE IVP PRN (12:54)
[2022-05-29] MEDS ORDERED: haloperidoL 1 MG TABLET PO PRN (12:54)
[2022-05-29] MEDS ORDERED: Ondansetron 4 MG/2 ML VIAL IVP PRN (12:54)
[2022-05-29] MEDS ORDERED: Naloxone 0.4 MG/ML INJ IVP PRN (12:54)
[2022-05-29] MEDS ORDERED: D5% in Water 1,000 ML IVC PRN (12:54)
[2022-05-29] MEDS ORDERED: Ipratropium/Albuterol Neb 3 ML IH PRN (12:54)
[2022-05-29] MEDS ORDERED: Dextrose Gel 15 GM/37.5 ML TUBE PO PRN ×2 (12:54)
[2022-05-29 14:34] LABS: Hematocrit 25.7 % (37.5-50.1); Hemoglobin 8.1 g/dL (12.9-16.9); Mean Corpuscular HGB Conc 31.5 g/dL (31.6-35.5); Mean Corpuscular Hemoglobin 30.3 pg (28.0-33.3); Mean Corpuscular Volume 96.3 fL (83.0-100.0); Mean Platelet Volume 9.6 fL (9.4-12.4); Platelet Count 255 K/mcL (140-400); Red Blood Count 2.67 M/mcL (4.19-5.50); Red Cell Distribution Width 15.6 % (11.5-14.5); White Blood Count 10.4 K/mcL (4.3-11.1)
[2022-05-29 14:51] LABS: BUN/Creatinine Ratio 18 (6-26); Blood Urea Nitrogen 21 mg/dL (8-23); Calcium 8.6 mg/dL (8.6-10.3); Carbon Dioxide 27 mEq/L (23-29); Chloride 103 mEq/L (98-107); Glucose 153 mg/dL (70-105); Osmolality,Calculated 288 (280-300); Potassium 4.1 mEq/L (3.5-5.1); Sodium 136 mEq/L (136-145); eGFR For African Americans > 60 (> 60); eGFR For Non-African Americans > 60 (> 60)
[2022-05-29] MEDS: *HR* HYDROmorphone (PF) 1 MG/ML SYRINGE IVP PRN ×2 (15:12→22:55)
[2022-05-29] MEDS: Gabapentin 400 MG CAPSULE PO SCH ×3 (15:13→19:46)
[2022-05-29 16:42] LABS: INR 1.3; Prothrombin Time 14.4 Seconds (9.4-12.1)
[2022-05-29 16:45] LABS: Activated Partial Thrombo Time 33.7 Seconds (26.0-36.0)
[2022-05-29] MEDS: Furosemide 40 MG TABLET PO SCH ×2 (16:54→19:20)
[2022-05-29] MEDS: Vancomycin 1,250 MG/262.5 ML IV.SOLN IVPB SCH (19:20)
[2022-05-29] MEDS: Aspirin 81 MG TAB.CHEW PO SCH (19:20)
[2022-05-29] MEDS: Insulin DETEMIR 100 UNIT/ML X5UNITS SUBQ SCH ×2 (19:21→19:50)
[2022-05-29] MEDS: Isosorbide MONOnitrate (24 HR) 30 MG TAB.ER.24H PO SCH (19:21)
[2022-05-29] MEDS: *HR* Amiodarone 200 MG TABLET PO SCH ×2 (19:21→19:46)
[2022-05-29] MEDS: Valsartan 160 MG TABLET PO SCH (19:21)
[2022-05-30 03:17] LABS: Basophils % 0.3 %; Eosinophils % 0.3 %; Hematocrit 24.3 % (37.5-50.1); Hemoglobin 7.7 g/dL (12.9-16.9); Immature Granulocytes % 0.4 % (0-4); Lymphocytes # 1.6 K/mcL (0.6-4.6); Lymphocytes % 13.6 %; Mean Corpuscular HGB Conc 31.7 g/dL (31.6-35.5); Mean Corpuscular Hemoglobin 29.5 pg (28.0-33.3); Mean Corpuscular Volume 93.1 fL (83.0-100.0); Mean Platelet Volume 9.5 fL (9.4-12.4); Monocytes # 1.2 K/mcL (0.0-1.3); Monocytes % 9.7 %; Platelet Count 288 K/mcL (140-400); Red Blood Count 2.61 M/mcL (4.19-5.50); Segmented Neutrophils % 75.7 %; White Blood Count 11.9 K/mcL (4.3-11.1)
[2022-05-30 03:18] LABS: VBG Ionized Calcium 1.14 mmol/L (1.15-1.35)
[2022-05-30 03:40] LABS: Alanine Aminotransferase 14 Units/L (7-52); Albumin/Globulin Ratio 1.3 (1.1-2.2); Alkaline Phosphatase 69 Units/L (34-104); Aspartate Amino Transferase 17 Units/L (13-39); BUN/Creatinine Ratio 20 (6-26); Bilirubin,Direct 0.1 mg/dL (0.0-0.2); Bilirubin,Indirect 0.4 mg/dL (0.0-1.0); Bilirubin,Total 0.5 mg/dL (0.3-1.0); Blood Urea Nitrogen 21 mg/dL (8-23); Calcium 8.4 mg/dL (8.6-10.3); Carbon Dioxide 27 mEq/L (23-29); Chloride 102 mEq/L (98-107); Globulin 2.4 g/dL (2.4-3.5); Glucose 146 mg/dL (70-105); Osmolality,Calculated 286 (280-300); Phosphorous 4.2 mg/dL (2.7-4.5); Potassium 4.1 mEq/L (3.5-5.1); Sodium 135 mEq/L (136-145); Total Protein 5.4 g/dL (6.4-8.9); eGFR For African Americans > 60 (> 60); eGFR For Non-African Americans > 60 (> 60)
[2022-05-30] MEDS: *HR* Enoxaparin 40 MG/0.4 ML SYRINGE SQ SCH (06:12)
[2022-05-30] MEDS: *HR* HYDROmorphone (PF) 1 MG/ML SYRINGE IVP PRN ×2 (06:13→09:19)
[2022-05-30] MEDS: Cefepime HCl 2,000 MG in 0.9 % Sodium Chloride 10 ML IVP SCH ×2 (07:54→20:21)
[2022-05-30] MEDS: MetroNIDAZOLE 500 MG/100 ML 500 MG/100 ML BAG IVPB SCH ×2 (07:55→14:37)
[2022-05-30] MEDS: *HR* OxyCODONE Immed Rel 5 MG TABLET PO PRN (07:56)
[2022-05-30] MEDS: Gabapentin 400 MG CAPSULE PO SCH ×3 (07:56→20:25)
[2022-05-30] MEDS: Aspirin 81 MG TAB.CHEW PO SCH (07:57)
[2022-05-30] MEDS: *HR* Amiodarone 200 MG TABLET PO SCH ×2 (07:57→20:25)
[2022-05-30] MEDS: Furosemide 40 MG TABLET PO SCH ×2 (07:58→16:35)
[2022-05-30] MEDS: Insulin LISPRO 300 UNITS/3 ML VIAL SUBQ SCH ×4 (07:59→20:25)
[2022-05-30] MEDS: Isosorbide MONOnitrate (24 HR) 30 MG TAB.ER.24H PO SCH (07:59)
[2022-05-30] MEDS: Valsartan 160 MG TABLET PO SCH (08:07)
[2022-05-30] MEDS: Insulin DETEMIR 100 UNIT/ML X5UNITS SUBQ SCH ×2 (08:40→20:33)
[2022-05-31] MEDS: *HR* HYDROmorphone (PF) 1 MG/ML SYRINGE IVP PRN (00:02)
[2022-05-31] MEDS: MetroNIDAZOLE 500 MG/100 ML 500 MG/100 ML BAG IVPB SCH ×4 (00:12→23:56)
[2022-05-31] MEDS: *HR* Enoxaparin 40 MG/0.4 ML SYRINGE SQ SCH (06:08)
[2022-05-31] MEDS: Insulin LISPRO 300 UNITS/3 ML VIAL SUBQ SCH ×4 (06:21→22:01)
[2022-05-31 06:51] LABS: VBG Ionized Calcium 1.14 mmol/L (1.15-1.35)
[2022-05-31] MEDS: Cefepime HCl 2,000 MG in 0.9 % Sodium Chloride 10 ML IVP SCH ×2 (07:00→20:24)
[2022-05-31 07:12] LABS: Basophils # 0.1 K/mcL (0.0-0.2); Basophils % 0.5 %; Eosinophils # 0.1 K/mcL (0.0-0.6); Eosinophils % 1.2 %; Hematocrit 21.1 % (37.5-50.1); Hemoglobin 6.6 g/dL (12.9-16.9); Immature Granulocytes % 0.6 % (0-4); Lymphocytes # 1.9 K/mcL (0.6-4.6); Lymphocytes % 17.5 %; Mean Corpuscular HGB Conc 31.3 g/dL (31.6-35.5); Mean Corpuscular Hemoglobin 29.3 pg (28.0-33.3); Mean Corpuscular Volume 93.8 fL (83.0-100.0); Monocytes # 1.3 K/mcL (0.0-1.3); Monocytes % 11.7 %; Neutrophils # 7.4 K/mcL (1.6-8.9); Platelet Count 259 K/mcL (140-400); Red Blood Count 2.25 M/mcL (4.19-5.50); Red Cell Distribution Width 15.3 % (11.5-14.5); Segmented Neutrophils % 68.5 %; White Blood Count 10.8 K/mcL (4.3-11.1)
[2022-05-31] MEDS ORDERED: Furosemide 20 MG/2 ML VIAL IVP ONE (07:19)
[2022-05-31 07:20] LABS: Alanine Aminotransferase 14 Units/L (7-52); Albumin 2.9 g/dL (3.5-5.7); Albumin/Globulin Ratio 1.4 (1.1-2.2); Alkaline Phosphatase 61 Units/L (34-104); Aspartate Amino Transferase 17 Units/L (13-39); BUN/Creatinine Ratio 22 (6-26); Bilirubin,Direct 0.1 mg/dL (0.0-0.2); Bilirubin,Indirect 0.3 mg/dL (0.0-1.0); Bilirubin,Total 0.4 mg/dL (0.3-1.0); Blood Urea Nitrogen 29 mg/dL (8-23); Calcium 8.2 mg/dL (8.6-10.3); Carbon Dioxide 27 mEq/L (23-29); Chloride 102 mEq/L (98-107); Globulin 2.1 g/dL (2.4-3.5); Glucose 138 mg/dL (70-105); Magnesium 2.2 mg/dL (1.6-2.6); Osmolality,Calculated 288 (280-300); Phosphorous 3.5 mg/dL (2.7-4.5); Potassium 3.7 mEq/L (3.5-5.1); Sodium 135 mEq/L (136-145); eGFR For African Americans > 60 (> 60); eGFR For Non-African Americans 53 (> 60)
[2022-05-31] MEDS ORDERED: 0.9 % Sodium Chloride 250 ML ONE ×2 (07:25→08:28)
[2022-05-31] MEDS: *HR* Amiodarone 200 MG TABLET PO SCH ×2 (07:31→20:38)
[2022-05-31] MEDS: Gabapentin 400 MG CAPSULE PO SCH ×3 (07:31→20:38)
[2022-05-31] MEDS: Aspirin 81 MG TAB.CHEW PO SCH (07:31)
[2022-05-31] MEDS: Valsartan 160 MG TABLET PO SCH (07:45)
[2022-05-31] MEDS: Isosorbide MONOnitrate (24 HR) 30 MG TAB.ER.24H PO SCH (07:45)
[2022-05-31] MEDS: *HR* OxyCODONE Immed Rel 5 MG TABLET PO PRN ×2 (07:57→23:56)
[2022-05-31] MEDS: Insulin DETEMIR 100 UNIT/ML X5UNITS SUBQ SCH ×2 (08:29→22:03)
[2022-05-31] MEDS ORDERED: Furosemide 40 MG TABLET PO SCH (09:00)
[2022-05-31 14:24] LABS: Hematocrit 24.7 % (37.5-50.1); Hemoglobin 7.8 g/dL (12.9-16.9)
[2022-05-31 14:36] LABS: Magnesium 2.3 mg/dL (1.6-2.6)
[2022-05-31] MEDS: Sennosides/Docusate Sodium TABLET PO SCH (20:28)
[2022-06-01] MEDS: *HR* Enoxaparin 40 MG/0.4 ML SYRINGE SQ SCH (05:39)
[2022-06-01 06:17] LABS: Basophils # 0.1 K/mcL (0.0-0.2); Basophils % 0.6 %; Eosinophils # 0.3 K/mcL (0.0-0.6); Eosinophils % 2.4 %; Hematocrit 26.1 % (37.5-50.1); Hemoglobin 8.3 g/dL (12.9-16.9); Immature Granulocytes % 0.6 % (0-4); Lymphocytes % 18.6 %; Mean Corpuscular HGB Conc 31.8 g/dL (31.6-35.5); Mean Corpuscular Hemoglobin 29.6 pg (28.0-33.3); Mean Corpuscular Volume 93.2 fL (83.0-100.0); Mean Platelet Volume 9.3 fL (9.4-12.4); Monocytes # 1.2 K/mcL (0.0-1.3); Monocytes % 11.1 %; Neutrophils # 7.3 K/mcL (1.6-8.9); Platelet Count 308 K/mcL (140-400); Red Cell Distribution Width 15.7 % (11.5-14.5); Segmented Neutrophils % 66.7 %; White Blood Count 10.9 K/mcL (4.3-11.1)
[2022-06-01 06:23] LABS: VBG Ionized Calcium 1.18 mmol/L (1.15-1.35)
[2022-06-01 06:45] LABS: Alanine Aminotransferase 14 Units/L (7-52); Albumin 2.9 g/dL (3.5-5.7); Albumin/Globulin Ratio 1.3 (1.1-2.2); Alkaline Phosphatase 63 Units/L (34-104); Aspartate Amino Transferase 18 Units/L (13-39); BUN/Creatinine Ratio 24 (6-26); Bilirubin,Direct 0.2 mg/dL (0.0-0.2); Bilirubin,Indirect 0.3 mg/dL (0.0-1.0); Bilirubin,Total 0.5 mg/dL (0.3-1.0); Blood Urea Nitrogen 28 mg/dL (8-23); Calcium 8.2 mg/dL (8.6-10.3); Carbon Dioxide 27 mEq/L (23-29); Chloride 105 mEq/L (98-107); Globulin 2.3 g/dL (2.4-3.5); Glucose 126 mg/dL (70-105); Osmolality,Calculated 289 (280-300); Phosphorous 2.9 mg/dL (2.7-4.5); Sodium 136 mEq/L (136-145); Total Protein 5.2 g/dL (6.4-8.9); eGFR For African Americans > 60 (> 60); eGFR For Non-African Americans > 60 (> 60)
[2022-06-01 06:54] LABS: Magnesium 2.2 mg/dL (1.6-2.6)
[2022-06-01] MEDS: Insulin LISPRO 300 UNITS/3 ML VIAL SUBQ SCH ×4 (08:24→20:21)
[2022-06-01] MEDS: *HR* Amiodarone 200 MG TABLET PO SCH ×2 (08:33→20:20)
[2022-06-01] MEDS: Aspirin 81 MG TAB.CHEW PO SCH (08:33)
[2022-06-01] MEDS: Isosorbide MONOnitrate (24 HR) 30 MG TAB.ER.24H PO SCH (08:33)
[2022-06-01] MEDS: Valsartan 160 MG TABLET PO SCH (08:34)
[2022-06-01] MEDS: Cefepime HCl 2,000 MG in 0.9 % Sodium Chloride 10 ML IVP SCH ×2 (08:34→20:19)
[2022-06-01] MEDS: MetroNIDAZOLE 500 MG/100 ML 500 MG/100 ML BAG IVPB SCH ×3 (08:35→23:55)
[2022-06-01] MEDS: Gabapentin 400 MG CAPSULE PO SCH ×3 (08:36→20:20)
[2022-06-01] MEDS: Sennosides/Docusate Sodium TABLET PO SCH ×2 (09:14→20:20)
[2022-06-01] MEDS: Insulin DETEMIR 100 UNIT/ML X5UNITS SUBQ SCH ×2 (09:14→20:20)
[2022-06-01] MEDS: *HR* OxyCODONE Immed Rel 5 MG TABLET PO PRN (10:55)
[2022-06-01] MEDS: *HR* HYDROmorphone (PF) 1 MG/ML SYRINGE IVP PRN (13:08)
[2022-06-02] MEDS: *HR* Enoxaparin 40 MG/0.4 ML SYRINGE SQ SCH (05:33)
[2022-06-02 06:08] LABS: Basophils # 0.1 K/mcL (0.0-0.2); Basophils % 0.6 %; Eosinophils # 0.3 K/mcL (0.0-0.6); Eosinophils % 2.9 %; Hematocrit 27.5 % (37.5-50.1); Hemoglobin 8.5 g/dL (12.9-16.9); Lymphocytes # 2.3 K/mcL (0.6-4.6); Lymphocytes % 19.8 %; Mean Corpuscular HGB Conc 30.9 g/dL (31.6-35.5); Mean Corpuscular Hemoglobin 29.1 pg (28.0-33.3); Mean Corpuscular Volume 94.2 fL (83.0-100.0); Mean Platelet Volume 9.6 fL (9.4-12.4); Monocytes # 1.3 K/mcL (0.0-1.3); Monocytes % 11.6 %; Neutrophils # 7.4 K/mcL (1.6-8.9); Platelet Count 338 K/mcL (140-400); Red Blood Count 2.92 M/mcL (4.19-5.50); Red Cell Distribution Width 15.7 % (11.5-14.5); Segmented Neutrophils % 64.1 %; White Blood Count 11.5 K/mcL (4.3-11.1)
[2022-06-02 06:13] LABS: VBG Ionized Calcium 1.14 mmol/L (1.15-1.35)
[2022-06-02 06:25] LABS: Alanine Aminotransferase 13 Units/L (7-52); Albumin/Globulin Ratio 1.4 (1.1-2.2); Alkaline Phosphatase 62 Units/L (34-104); Aspartate Amino Transferase 17 Units/L (13-39); BUN/Creatinine Ratio 25 (6-26); Bilirubin,Total 0.5 mg/dL (0.3-1.0); Blood Urea Nitrogen 29 mg/dL (8-23); Calcium 8.4 mg/dL (8.6-10.3); Carbon Dioxide 25 mEq/L (23-29); Chloride 106 mEq/L (98-107); Globulin 2.2 g/dL (2.4-3.5); Glucose 114 mg/dL (70-105); Magnesium 2.2 mg/dL (1.6-2.6); Osmolality,Calculated 291 (280-300); Phosphorous 3.1 mg/dL (2.7-4.5); Potassium 4.2 mEq/L (3.5-5.1); Sodium 137 mEq/L (136-145); Total Protein 5.2 g/dL (6.4-8.9); eGFR For African Americans > 60 (> 60); eGFR For Non-African Americans > 60 (> 60)
[2022-06-02] MEDS: MetroNIDAZOLE 500 MG/100 ML 500 MG/100 ML BAG IVPB SCH ×2 (08:22→16:23)
[2022-06-02] MEDS: Isosorbide MONOnitrate (24 HR) 30 MG TAB.ER.24H PO SCH (08:23)
[2022-06-02] MEDS: Cefepime HCl 2,000 MG in 0.9 % Sodium Chloride 10 ML IVP SCH ×2 (08:23→20:48)
[2022-06-02] MEDS: Gabapentin 400 MG CAPSULE PO SCH ×3 (08:23→20:50)
[2022-06-02] MEDS: Aspirin 81 MG TAB.CHEW PO SCH (08:24)
[2022-06-02] MEDS: Sennosides/Docusate Sodium TABLET PO SCH ×2 (08:24→20:49)
[2022-06-02] MEDS: Valsartan 160 MG TABLET PO SCH (08:24)
[2022-06-02] MEDS: *HR* Amiodarone 200 MG TABLET PO SCH ×2 (08:24→20:49)
[2022-06-02] MEDS: Insulin LISPRO 300 UNITS/3 ML VIAL SUBQ SCH ×4 (08:25→20:49)
[2022-06-02] MEDS ORDERED: Insulin DETEMIR 100 UNIT/ML X5UNITS SUBQ ONE (11:01)
[2022-06-02] MEDS: Insulin DETEMIR 100 UNIT/ML X5UNITS SUBQ SCH ×2 (11:44→20:48)
[2022-06-02] MEDS: *HR* OxyCODONE Immed Rel 5 MG TABLET PO PRN ×2 (12:40→22:09)
[2022-06-02] MEDS ORDERED: *HR* Alteplase (Cathflo) 2 MG VIAL IVP PRN (22:50)
[2022-06-03] MEDS: MetroNIDAZOLE 500 MG/100 ML 500 MG/100 ML BAG IVPB SCH ×4 (01:33→23:56)
[2022-06-03] MEDS: *HR* OxyCODONE Immed Rel 5 MG TABLET PO PRN ×2 (02:20→07:53)
[2022-06-03 02:38] LABS: Basophils # 0.1 K/mcL (0.0-0.2); Basophils % 0.5 %; Eosinophils # 0.4 K/mcL (0.0-0.6); Eosinophils % 3.9 %; Hematocrit 26.8 % (37.5-50.1); Hemoglobin 8.3 g/dL (12.9-16.9); Immature Granulocytes % 1.6 % (0-4); Immature Platelets 1.6 % (1.1-6.1); Lymphocytes # 2.2 K/mcL (0.6-4.6); Lymphocytes % 19.7 %; Mean Corpuscular Hemoglobin 29.1 pg (28.0-33.3); Mean Platelet Volume 9.4 fL (9.4-12.4); Monocytes # 1.2 K/mcL (0.0-1.3); Monocytes % 11.1 %; Neutrophils # 7.1 K/mcL (1.6-8.9); Platelet Count 376 K/mcL (140-400); Red Blood Count 2.85 M/mcL (4.19-5.50); Red Cell Distribution Width 15.5 % (11.5-14.5); Segmented Neutrophils % 63.2 %; White Blood Count 11.2 K/mcL (4.3-11.1)
[2022-06-03 02:56] LABS: Alanine Aminotransferase 14 Units/L (7-52); Albumin 2.8 g/dL (3.5-5.7); Albumin/Globulin Ratio 1.1 (1.1-2.2); Alkaline Phosphatase 68 Units/L (34-104); Aspartate Amino Transferase 18 Units/L (13-39); BUN/Creatinine Ratio 20 (6-26); Bilirubin,Total 0.4 mg/dL (0.3-1.0); Blood Urea Nitrogen 23 mg/dL (8-23); Calcium 8.3 mg/dL (8.6-10.3); Carbon Dioxide 25 mEq/L (23-29); Chloride 107 mEq/L (98-107); Globulin 2.5 g/dL (2.4-3.5); Glucose 158 mg/dL (70-105); Magnesium 2.1 mg/dL (1.6-2.6); Osmolality,Calculated 291 (280-300); Phosphorous 3.1 mg/dL (2.7-4.5); Potassium 4.4 mEq/L (3.5-5.1); Sodium 137 mEq/L (136-145); Total Protein 5.3 g/dL (6.4-8.9); eGFR For African Americans > 60 (> 60); eGFR For Non-African Americans > 60 (> 60)
[2022-06-03 05:14] LABS: VBG Ionized Calcium 1.22 mmol/L (1.15-1.35)
[2022-06-03] MEDS: *HR* Enoxaparin 40 MG/0.4 ML SYRINGE SQ SCH (05:52)
[2022-06-03] MEDS: *HR* Amiodarone 200 MG TABLET PO SCH ×2 (07:54→19:50)
[2022-06-03] MEDS: Valsartan 160 MG TABLET PO SCH (07:54)
[2022-06-03] MEDS: Gabapentin 400 MG CAPSULE PO SCH ×3 (07:54→19:50)
[2022-06-03] MEDS: Sennosides/Docusate Sodium TABLET PO SCH ×2 (07:54→19:50)
[2022-06-03] MEDS: Aspirin 81 MG TAB.CHEW PO SCH (07:54)
[2022-06-03] MEDS: Isosorbide MONOnitrate (24 HR) 30 MG TAB.ER.24H PO SCH (07:54)
[2022-06-03] MEDS: Insulin LISPRO 300 UNITS/3 ML VIAL SUBQ SCH ×4 (07:55→19:43)
[2022-06-03] MEDS: Cefepime HCl 2,000 MG in 0.9 % Sodium Chloride 10 ML IVP SCH ×2 (08:05→19:50)
[2022-06-03] MEDS: Insulin DETEMIR 100 UNIT/ML X5UNITS SUBQ SCH ×2 (08:34→20:37)
[2022-06-03] MEDS ORDERED: Naloxone 0.4 MG/ML INJ IVP PRN (10:13)
[2022-06-03] MEDS ORDERED: *HR* Dextrose 50 % in Water (Syg) 50 ML SYRINGE IVP PRN (10:13)
[2022-06-03] MEDS ORDERED: *HR* OxyCODONE Immed Rel 5 MG TABLET PO PRN ×2 (10:13)
[2022-06-03] MEDS ORDERED: D5% in Water 1,000 ML IVC PRN (10:13)
[2022-06-03] MEDS ORDERED: Dextrose Gel 15 GM/37.5 ML TUBE PO PRN ×2 (10:13)
[2022-06-03] MEDS ORDERED: *HR* Alteplase (Cathflo) 2 MG VIAL IVP PRN (10:13)
[2022-06-03] MEDS ORDERED: Ondansetron 4 MG/2 ML VIAL IVP PRN (10:13)
[2022-06-03] MEDS ORDERED: Ipratropium/Albuterol Neb 3 ML IH PRN (10:13)
[2022-06-03] MEDS ORDERED: haloperidoL 1 MG TABLET PO PRN (10:13)
[2022-06-03] MEDS ORDERED: Acetaminophen 325 MG TABLET PO PRN (10:13)
[2022-06-03] MEDS: *HR* HYDROmorphone (PF) 1 MG/ML SYRINGE IVP PRN (15:21)
[2022-06-04 04:52] LABS: VBG Ionized Calcium 1.12 mmol/L (1.15-1.35)
[2022-06-04 05:09] LABS: Hemoglobin 8.5 g/dL (12.9-16.9); Red Cell Distribution Width 15.6 % (11.5-14.5)
[2022-06-04 05:11] LABS: Basophils # 0.1 K/mcL (0.0-0.2); Basophils % 0.8 %; Eosinophils # 0.4 K/mcL (0.0-0.6); Eosinophils % 3.9 %; Hematocrit 27.2 % (37.5-50.1); Immature Granulocytes % 1.8 % (0-4); Immature Platelets 1.5 % (1.1-6.1); Lymphocytes # 1.9 K/mcL (0.6-4.6); Lymphocytes % 20.9 %; Mean Corpuscular HGB Conc 31.3 g/dL (31.6-35.5); Mean Corpuscular Hemoglobin 29.7 pg (28.0-33.3); Mean Corpuscular Volume 95.1 fL (83.0-100.0); Mean Platelet Volume 9.4 fL (9.4-12.4); Monocytes % 10.5 %; Neutrophils # 5.7 K/mcL (1.6-8.9); Platelet Count 338 K/mcL (140-400); Red Blood Count 2.86 M/mcL (4.19-5.50); Segmented Neutrophils % 62.1 %; White Blood Count 9.2 K/mcL (4.3-11.1)
[2022-06-04 05:18] LABS: Platelet Estimate Normal (Normal)
[2022-06-04 05:29] LABS: Alanine Aminotransferase 13 Units/L (7-52); Albumin 2.9 g/dL (3.5-5.7); Albumin/Globulin Ratio 1.3 (1.1-2.2); Alkaline Phosphatase 70 Units/L (34-104); Aspartate Amino Transferase 17 Units/L (13-39); BUN/Creatinine Ratio 19 (6-26); Bilirubin,Total 0.5 mg/dL (0.3-1.0); Blood Urea Nitrogen 20 mg/dL (8-23); Calcium 8.4 mg/dL (8.6-10.3); Carbon Dioxide 24 mEq/L (23-29); Chloride 108 mEq/L (98-107); Globulin 2.2 g/dL (2.4-3.5); Glucose 129 mg/dL (70-105); Magnesium 2.1 mg/dL (1.6-2.6); Osmolality,Calculated 288 (280-300); Phosphorous 3.3 mg/dL (2.7-4.5); Potassium 4.3 mEq/L (3.5-5.1); Sodium 137 mEq/L (136-145); Total Protein 5.1 g/dL (6.4-8.9); eGFR For African Americans > 60 (> 60); eGFR For Non-African Americans > 60 (> 60)
[2022-06-04] MEDS: *HR* Enoxaparin 40 MG/0.4 ML SYRINGE SQ SCH (05:37)
[2022-06-04] MEDS: Insulin LISPRO 300 UNITS/3 ML VIAL SUBQ SCH ×4 (08:30→21:12)
[2022-06-04] MEDS: Insulin DETEMIR 100 UNIT/ML X5UNITS SUBQ SCH ×2 (08:45→21:25)
[2022-06-04] MEDS: *HR* Amiodarone 200 MG TABLET PO SCH ×2 (08:45→21:25)
[2022-06-04] MEDS: Valsartan 160 MG TABLET PO SCH (08:45)
[2022-06-04] MEDS: Aspirin 81 MG TAB.CHEW PO SCH (08:45)
[2022-06-04] MEDS: Isosorbide MONOnitrate (24 HR) 30 MG TAB.ER.24H PO SCH (08:45)
[2022-06-04] MEDS: Sennosides/Docusate Sodium TABLET PO SCH ×2 (08:45→21:25)
[2022-06-04] MEDS: Gabapentin 400 MG CAPSULE PO SCH ×3 (08:45→21:25)
[2022-06-04] MEDS: Cefepime HCl 2,000 MG in 0.9 % Sodium Chloride 10 ML IVP SCH ×2 (08:45→21:25)
[2022-06-04] MEDS: Furosemide 40 MG TABLET PO SCH (08:45)
[2022-06-05] MEDS: *HR* HYDROmorphone (PF) 1 MG/ML SYRINGE IVP PRN ×2 (00:16→09:00)
[2022-06-05 02:18] LABS: VBG Ionized Calcium 1.24 mmol/L (1.15-1.35)
[2022-06-05 02:19] LABS: Basophils # 0.1 K/mcL (0.0-0.2); Basophils % 0.6 %; Eosinophils # 0.4 K/mcL (0.0-0.6); Eosinophils % 4.2 %; Hematocrit 26.9 % (37.5-50.1); Hemoglobin 8.4 g/dL (12.9-16.9); Immature Granulocytes % 1.8 % (0-4); Lymphocytes # 2.1 K/mcL (0.6-4.6); Lymphocytes % 22.4 %; Mean Corpuscular HGB Conc 31.2 g/dL (31.6-35.5); Mean Corpuscular Hemoglobin 29.6 pg (28.0-33.3); Mean Corpuscular Volume 94.7 fL (83.0-100.0); Mean Platelet Volume 9.4 fL (9.4-12.4); Monocytes # 0.9 K/mcL (0.0-1.3); Neutrophils # 5.6 K/mcL (1.6-8.9); Platelet Count 359 K/mcL (140-400); Red Blood Count 2.84 M/mcL (4.19-5.50); Red Cell Distribution Width 15.5 % (11.5-14.5); White Blood Count 9.3 K/mcL (4.3-11.1)
[2022-06-05 02:32] LABS: Alanine Aminotransferase 13 Units/L (7-52); Albumin 2.9 g/dL (3.5-5.7); Albumin/Globulin Ratio 1.3 (1.1-2.2); Alkaline Phosphatase 67 Units/L (34-104); Aspartate Amino Transferase 16 Units/L (13-39); BUN/Creatinine Ratio 17 (6-26); Bilirubin,Total 0.4 mg/dL (0.3-1.0); Blood Urea Nitrogen 18 mg/dL (8-23); Calcium 8.6 mg/dL (8.6-10.3); Carbon Dioxide 24 mEq/L (23-29); Chloride 109 mEq/L (98-107); Globulin 2.3 g/dL (2.4-3.5); Glucose 119 mg/dL (70-105); Magnesium 2.1 mg/dL (1.6-2.6); Osmolality,Calculated 291 (280-300); Phosphorous 3.5 mg/dL (2.7-4.5); Potassium 4.1 mEq/L (3.5-5.1); Sodium 139 mEq/L (136-145); Total Protein 5.2 g/dL (6.4-8.9); eGFR For African Americans > 60 (> 60); eGFR For Non-African Americans > 60 (> 60)
[2022-06-05] MEDS: *HR* Enoxaparin 40 MG/0.4 ML SYRINGE SQ SCH (06:52)
[2022-06-05] MEDS: Gabapentin 400 MG CAPSULE PO SCH ×2 (08:00→15:14)
[2022-06-05] MEDS: *HR* Amiodarone 200 MG TABLET PO SCH (08:00)
[2022-06-05] MEDS: Furosemide 40 MG TABLET PO SCH (08:00)
[2022-06-05] MEDS: Aspirin 81 MG TAB.CHEW PO SCH (08:00)
[2022-06-05] MEDS: Valsartan 160 MG TABLET PO SCH (08:01)
[2022-06-05] MEDS: Sennosides/Docusate Sodium TABLET PO SCH (08:02)
[2022-06-05] MEDS: Isosorbide MONOnitrate (24 HR) 30 MG TAB.ER.24H PO SCH (08:02)
[2022-06-05] MEDS: Cefepime HCl 2,000 MG in 0.9 % Sodium Chloride 10 ML IVP SCH (08:03)
[2022-06-05] MEDS: Insulin LISPRO 300 UNITS/3 ML VIAL SUBQ SCH ×3 (08:08→17:11)
[2022-06-05] MEDS: Insulin DETEMIR 100 UNIT/ML X5UNITS SUBQ SCH (08:11)
[2022-06-05 16:28] VITALS: BP 159/60; PULSE 85; TEMP 97.5; O2SAT 97
== END 2022-06-05 19:50 | disposition other institution (70) | DRG 233 ==
LOC: EMEROOARM 14:09 → 3BNU 14:09 → SUATTDRO 18:06 → 3BNU 18:54 → SUATTDRO 04-19 14:07 → ICNU 04-26 15:42 → 2NNU 04-30 12:15 → ICNU 04-30 16:41 → 2NNU 04-30 17:34 → ICNU 04-30 18:47 → 2NNU 05-02 10:42 → ICNU 05-29 09:47 → 2NNU 06-03 18:41
PROVIDERS: ADMIT Hospitalist; ATTEND Student in an Organized Health Care Education/Training Program

== ENCOUNTER 2022-08-26 08:11 | Inpatient (IN) ==
[2022-08-26] MEDS ORDERED: Vancomycin 2,000 MG/520 ML IV.SOLN IVPB ONE ×2 (08:34→23:00)
[2022-08-26] MEDS ORDERED: Ringers Solution, Lactated 1,000 ML IVC SCH (08:45)
[2022-08-26] MEDS ORDERED: *HR* Labetalol 20 MG/4 ML SYRINGE IVP PRN ×2 (08:58→15:56)
[2022-08-26] MEDS ORDERED: Albuterol 2.5 MG/3 ML NEBULIZER IH PRN (08:58)
[2022-08-26] MEDS ORDERED: Ipratropium Neb 0.5 MG NEBULIZER IH PRN (08:58)
[2022-08-26] MEDS ORDERED: Ondansetron 4 MG/2 ML VIAL IVP PRN ×2 (08:58→15:56)
[2022-08-26] MEDS ORDERED: *HR* OxyCODONE Immed Rel 5 MG TABLET PO PRN ×2 (08:58→15:56)
[2022-08-26] MEDS ORDERED: *HR* FentaNYL (PF) 100 MCG/2 ML VIAL IVP PRN (08:58)
[2022-08-26] MEDS ORDERED: Acetaminophen IV 1,000 MG/100 ML BAG IVPB PRN (08:58)
[2022-08-26] MEDS ORDERED: *HR* HYDROmorphone PF 0.5 MG/0.5 ML SYRINGE IVP PRN (08:58)
[2022-08-26] MEDS ORDERED: *HR* OxyCODONE Immed Rel 5 MG TABLET PO ONE (09:26)
[2022-08-26] MEDS ORDERED: *HR* FentaNYL (PF) 100 MCG/2 ML VIAL ONE (10:35)
[2022-08-26] MEDS ORDERED: *HR* Propofol 200 MG/20 ML VIAL IVP ONE (10:35)
[2022-08-26] MEDS ORDERED: *HR* Etomidate 40 MG/20 ML VIAL IVP ONE (10:35)
[2022-08-26] MEDS ORDERED: Lidocaine -MPF 2% 2 ML VIAL ONE ×3 (10:35→11:21)
[2022-08-26] MEDS ORDERED: *HR* Rocuronium Bromide 50 MG/5 ML VIAL ONE (10:35)
[2022-08-26] MEDS ORDERED: *HR* Succinylcholine 200 MG/10 ML VIAL IVP ONE (10:35)
[2022-08-26] MEDS ORDERED: Heparin 1,000 UNITS/500 mL 0 ML ONE (10:37)
[2022-08-26] MEDS ORDERED: Protamine Sulfate 50 MG/5 ML VIAL IVP ONE (10:53)
[2022-08-26] MEDS ORDERED: Vancomycin 1,000 MG VIAL ONE (10:54)
[2022-08-26] MEDS ORDERED: *HR* Vasopressin 20 UNIT/ML VIAL ONE (10:55)
[2022-08-26] MEDS ORDERED: Norepinephrine 4 MG/254 ML IV.SOLN IVC ONE (10:56)
[2022-08-26] MEDS ORDERED: Heparin 1,000 UNITS/500 mL 1,000 ML ONE (10:57)
[2022-08-26] MEDS ORDERED: Vancomycin 1,000 MG, Sodium Chloride IRRigation 1,000 ML IR ONE (11:05)
[2022-08-26] MEDS ORDERED: Bupivacaine-MPF 0.25% 10 ML VIAL ONE (11:14)
[2022-08-26] MEDS ORDERED: Iopamidol - 300 100 ML INFUS..BTL ONE (11:33)
[2022-08-26] MEDS ORDERED: ceFAZolin 3,000 MG in Water for inj. (sterile) 30 ML IVP ONE (12:00)
[2022-08-26] MEDS ORDERED: Acetaminophen IV 1,000 MG/100 ML BAG IVPB ONE (14:16)
[2022-08-26] MEDS ORDERED: Ondansetron 4 MG/2 ML VIAL ONE (14:18)
[2022-08-26] MEDS ORDERED: Nitroglycerin 0.4 MG TAB.SUBL SL PRN (15:56)
[2022-08-26] MEDS ORDERED: 0.9 % Sodium Chloride 1,000 ML IVC SCH (15:56)
[2022-08-26] MEDS ORDERED: D5% in Water 1,000 ML IVC PRN (15:56)
[2022-08-26] MEDS ORDERED: Dextrose Gel 15 GM/37.5 ML TUBE PO PRN ×2 (15:56)
[2022-08-26] MEDS ORDERED: *HR* HYDROcodone/Acet 5/325 mg TABLET PO PRN (15:56)
[2022-08-26] MEDS ORDERED: Acetaminophen 325 MG TABLET PO PRN (15:56)
[2022-08-26] MEDS ORDERED: *HR* Dextrose 50 % in Water (Syg) 50 ML SYRINGE IVP PRN (15:56)
[2022-08-26] MEDS ORDERED: Naloxone 0.4 MG/ML INJ IVP PRN (15:56)
[2022-08-26] MEDS: Furosemide 20 MG TABLET PO SCH (16:59)
[2022-08-26] MEDS: Insulin LISPRO 300 UNITS/3 ML VIAL SUBQ SCH (17:34)
[2022-08-26] MEDS ORDERED: carvediloL 25 MG TABLET PO SCH (18:00)
[2022-08-26] MEDS: *HR* Metoprolol 5 MG/5 ML VIAL IVP SCH ×2 (18:35→23:28)
[2022-08-26] MEDS: ceFAZolin 3,000 MG in 0.9 % Sodium Chloride 100 ML IVPB SCH (20:46)
[2022-08-26] MEDS: *HR* Amiodarone 200 MG TABLET PO SCH (20:47)
[2022-08-26] MEDS ORDERED: DOXYCYCLINE HYCLATE 100 MG PO SCH (21:00)
[2022-08-26] MEDS ORDERED: AZITHROMYCIN 500 MG PO SCH (21:00)
[2022-08-26] MEDS ORDERED: Insulin LISPRO 300 UNITS/3 ML VIAL SUBQ SCH (21:00)
[2022-08-27] MEDS: ceFAZolin 3,000 MG in 0.9 % Sodium Chloride 100 ML IVPB SCH (04:43)
[2022-08-27 04:55] LABS: Basophils % 0.1 %; Hematocrit 28.5 % (37.5-50.1); Hemoglobin 9.1 g/dL (12.9-16.9); Immature Granulocytes % 0.5 % (0-4); Immature Platelets 3.2 % (1.1-6.1); Lymphocytes # 2.2 K/mcL (0.6-4.6); Lymphocytes % 15.2 %; Mean Corpuscular HGB Conc 31.9 g/dL (31.6-35.5); Mean Corpuscular Volume 87.7 fL (83.0-100.0); Monocytes # 1.2 K/mcL (0.0-1.3); Neutrophils # 11.2 K/mcL (1.6-8.9); Platelet Count 202 K/mcL (140-400); Red Blood Count 3.25 M/mcL (4.19-5.50); Red Cell Distribution Width 15.7 % (11.5-14.5); Segmented Neutrophils % 76.2 %; White Blood Count 14.7 K/mcL (4.3-11.1)
[2022-08-27 05:09] LABS: Calcium 8.6 mg/dL (8.6-10.3); Potassium 4.1 mEq/L (3.5-5.1)
[2022-08-27] MEDS: *HR* Metoprolol 5 MG/5 ML VIAL IVP SCH (05:32)
[2022-08-27] MEDS ORDERED: *HR* Heparin 5,000 UNIT/ML VIAL SQ SCH ×2 (06:00)
[2022-08-27] MEDS: Furosemide 20 MG TABLET PO SCH (07:48)
[2022-08-27] MEDS: *HR* Amiodarone 200 MG TABLET PO SCH (07:48)
[2022-08-27] MEDS: Insulin LISPRO 300 UNITS/3 ML VIAL SUBQ SCH (07:51)
[2022-08-27 07:55] VITALS: PULSE 65
[2022-08-27] MEDS ORDERED: Pyridoxine (B-6) 50 MG TABLET PO SCH (09:00)
[2022-08-27] MEDS ORDERED: Lactobacillus 1 EACH CAP.SPRINK PO SCH (09:00)
[2022-08-27] MEDS ORDERED: Aspirin Enteric Coated 81 MG Tablet PO SCH (09:00)
[2022-08-27 11:09] VITALS: BP 164/67; TEMP 98.7; O2SAT 95
[2022-08-27] MEDS ORDERED: cilostazoL 100 MG TABLET PO SCH (21:00)
== END 2022-08-27 11:52 | disposition home or self-care (01) | DRG 253 ==
LOC: SAMDAY 08:11 → 2NNU 16:29
PROVIDERS: ADMIT Surgery; ATTEND Surgery